=== PATIENT | female | born 1965 | race Asian ===

== ENCOUNTER 2018-09-15 16:08 | Inpatient (IN) | payer SELFPAY ==
[~2018-09-15] VITALS: Ht 165.1 cm; Wt 62.6 kg
--- NOTE | 2018-09-15 17:01 | PHYS DOC ---
Adult General Chief Complaint Chief Complaint: RECTAL BLEED [facility] HPI Patient is a 53 year old female presents for evaluation of increasing rectal pain with bleeding, difficulty with bowel movements. 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 He states his recently started having blood in her stools, he took her to the [facility] where she was referred to [facility] and had a colonoscopy done on . 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 He is unsure what to do to help get her the care that she needs. She is having increased pain and finding it very difficult to pass stool. Review of Systems Review of Systems Constitutional: Denies fever or chills [] Eyes: Denies change in visual acuity, redness, or eye pain [] HENT: Denies nasal congestion or sore throat [] Respiratory: Denies cough or shortness of breath [] Cardiovascular: No additional information not addressed in HPI [] GI: Reports rectal pain and, bloody stools[] : Denies dysuria or hematuria [] Musculoskeletal: Denies back pain or joint pain [] Integument: Denies rash or skin lesions [] Neurologic: Denies headache, focal weakness or sensory changes [] Endocrine: Denies polyuria or polydipsia [] All other systems were reviewed and found to be within normal limits, except as documented in this note. Current Medications Current Medications Current Medications Medications (Trade) Dose Ordered Sig/[facility] Start Time Stop Time Status Last Admin Dose Admin Morphine Sulfate (Morphine Sulfate) 4 mg 1X ONCE 09/15/18 17:15 09/15/18 17:16 DC Ondansetron HCl (Zofran) 4 mg 1X ONCE 09/15/18 17:15 09/15/18 17:16 DC Sodium Chloride 1,000 ml @ 1,000 mls/hr 1X ONCE 09/15/18 17:15 09/15/18 18:14 Allergies Allergies Allergies Coded Allergies Type Severity Reaction Last Updated Verified No Known Drug Allergies 09/15/18 No Physical Exam Physical Exam Constitutional: Well developed, well nourished, no acute distress, non-toxic appearance. [] Cardiovascular:Heart rate regular rhythm, no murmur [] Lungs & Thorax: Bilateral breath sounds clear to auscultation [] Abdomen: Bowel sounds normal, soft, no tenderness, no masses, no pulsatile masses. [] Skin: Warm, dry, no erythema, no rash. [] Extremities: No tenderness, no cyanosis, no clubbing, ROM intact, no edema. [] Neurologic: Alert and oriented X 3, normal motor function, normal sensory function, no focal deficits noted. [] Psychologic: Affect normal, judgement normal, mood normal. [] Current Patient Data Vital Signs Vital Signs Date Time Temp Pulse Resp B/P (MAP) Pulse Ox O2 Delivery O2 Flow Rate FiO2 09/15/18 16:29 98.2 80 16 120/75 (90) 98 Room Air 98.2 Lab Values Laboratory Tests Test 09/15/18 17:00 White Blood Count 6.1 x10^3/uL (4.0-11.0) Red Blood Count 4.55 x10^6/uL (3.50-5.40) Hemoglobin 12.9 g/dL (12.0-15.5) Hematocrit 39.0 % (36.0-47.0) Mean Corpuscular Volume 86 fL (79-100) Mean Corpuscular Hemoglobin 28 pg (25-35) Mean Corpuscular Hemoglobin Concent 33 g/dL (31-37) Red Cell Distribution Width 13.5 % (11.5-14.5) Platelet Count 226 x10^3/uL (140-400) Neutrophils (%) (Auto) 60 % (31-73) Lymphocytes (%) (Auto) 29 % (24-48) Monocytes (%) (Auto) 8 % (0-9) Eosinophils (%) (Auto) 3 % (0-3) Basophils (%) (Auto) 1 % (0-3) Neutrophils # (Auto) 3.6 x10^3uL (1.8-7.7) Lymphocytes # (Auto) 1.8 x10^3/uL (1.0-4.8) Monocytes # (Auto) 0.5 x10^3/uL (0.0-1.1) Eosinophils # (Auto) 0.2 x10^3/uL (0.0-0.7) Basophils # (Auto) 0.0 x10^3/uL (0.0-0.2) Laboratory Tests 09/15/18 17:00 EKG EKG [] Radiology/Procedures Radiology/Procedures [] Course & Med Decision Making Course & Med Decision Making Pertinent Labs and Imaging studies reviewed. (See chart for details) []I spoke with Dr. Diez , oncology, who agrees to consult on patient's case, recommends getting radiation oncology and surgery on board, admit to medicine. I spoke to Dr. Mart who agrees to admit patient. Dragon Disclaimer Dragon Disclaimer This electronic medical record was generated, in whole or in part, using a voice recognition dictation system. Departure Departure Impression: Primary Impression: Rectal carcinoma Disposition: ADMITTED INPATIENT Admitting Physician: Lourdes Mart Condition: STABLE SOLITARIO AMBROCIO SENIOR ANALYST Sep 15, 2018 17:01
[2018-09-15] MEDS ORDERED: ONDANSETRON PF 4 MG/2 ML VIAL. IV ONE (17:15)
[2018-09-15] MEDS ORDERED: MORPHINE SULFATE 4 MG/ML VIAL. IV ONE (17:15)
[2018-09-15] MEDS ORDERED: IV NORMAL SALINE 1000ML BAG 1,000 ML IV ONE (17:15)
[2018-09-15 17:22] LABS: BASO % 1 % (0-3); EOS # 0.2 x10^3/uL (0.0-0.7); EOS % 3 % (0-3); HEMOGLOBIN 12.9 g/dL (12.0-15.5); LYMPH # 1.8 x10^3/uL (1.0-4.8); LYMPH % 29 % (24-48); MEAN CORPUSCULAR HEMOGLOBIN 28 pg (25-35); MEAN CORPUSCULAR HGB CONC 33 g/dL (31-37); MEAN CORPUSCULAR VOLUME 86 fL (79-100); MONO # 0.5 x10^3/uL (0.0-1.1); MONO % 8 % (0-9); NEUT # 3.6 x10^3uL (1.8-7.7); NEUT % 60 % (31-73); PLATELET COUNT 226 x10^3/uL (140-400); RED BLOOD COUNT 4.55 x10^6/uL (3.50-5.40); RED CELL DISTRIBUTION WIDTH 13.5 % (11.5-14.5); WHITE BLOOD COUNT 6.1 x10^3/uL (4.0-11.0)
[2018-09-15 17:30] LABS: CALCIUM 8.8 mg/dL (8.5-10.1); CREATININE 0.6 mg/dL (0.6-1.0); GFR 104.2; POTASSIUM 3.5 mmol/L (3.5-5.1)
[2018-09-15] MEDS ORDERED: ZOLPIDEM 5 MG TABLET. PO PRN (17:30)
[2018-09-15] MEDS ORDERED: oxyCODONE IR 5 MG TABLET PO PRN (17:30)
[2018-09-15] MEDS ORDERED: ACETAMINOPHEN 325 MG TABLET. PO PRN (17:30)
[2018-09-15] MEDS ORDERED: MAGNESIUM HYDROXIDE 2,400 MG/30 ML ORAL.SUSP. PO PRN (17:30)
[2018-09-15] MEDS ORDERED: MAG HYDROX/ALUMINUM HYD/SIMETH 30 ML ORAL.SUSP PO PRN (17:30)
[2018-09-15] MEDS ORDERED: PROCHLORPERAZINE 10 MG/2 ML VIAL. IV PRN (17:30)
[2018-09-15] MEDS ORDERED: MORPHINE SULFATE 4 MG/ML VIAL. IV PRN ×2 (17:30→18:04)
[2018-09-15] MEDS ORDERED: CALCIUM CARBONATE 500 MG TAB.CHEW PO PRN (17:30)
[2018-09-15] MEDS ORDERED: MORPHINE SULFATE 2 MG/ML VIAL. IV PRN (17:30)
[2018-09-15] MEDS ORDERED: ONDANSETRON PF 4 MG/2 ML VIAL. IV PRN ×2 (17:30)
[2018-09-15] MEDS ORDERED: PROCHLORPERAZINE 25 MG SUPP.RECT. PR PRN (17:30)
[2018-09-15 17:35] LABS: ALBUMIN 3.4 g/dL (3.4-5.0); ALBUMIN/GLOBULIN RATIO 0.8 (1.0-1.7); TOTAL BILIRUBIN 0.2 mg/dL (0.2-1.0); TOTAL PROTEIN 7.5 g/dL (6.4-8.2)
--- NOTE | 2018-09-15 17:39 | PDOC1 ---
History and Physical Date of Admission Date of Admission DATE: 09/15/18 TIME: 17:32 Identification/Chief Complaint Chief Complaint Invasive adenoCA rectum on colonoscopy biopsy results (As op) hence advised to come to the hospital Source Source: Caregiver, Chart review, Patient History of Present Illness History of Present Illness 53-year-old Surinamese speaking female, only speaks Mandarin, accompanied by loving who speaks fluent [place] Islander. Had a colonoscopy done as outpatient because of rectal Bleeding and rectal pain, c scope done by Dr. Carter as OP. Biopsy came in the mail today and showed adeno CA rectal invasive hence advised to come to the ER with heme onc on board to expedite care and plan of tx. Hematology consult called, advised general surgery and radiation oncology to be on board. MIght be getting CT scan too. Staging? Patient still has rectal pain and rectal bleeding once in a while. No labs yet- she's hemodynamically stable. helps to translate via carmencita phone translation, all our discussion Seen at the emergency room Full code She does not take any real medications at home aside from multivitamins SHe denies any family history of colon cancer or rectal cancer Past Medical History Cardiovascular: No pertinent hx Pulmonary: No pertinent hx GI: No pertinent hx Heme/Onc: No pertinent hx Hepatobiliary: No pertinent hx Psych: No pertinent hx Rheumatologic: No pertinent hx Infectious disease: No pertinent hx ENT: No pertinent hx Renal/: No pertinent hx Endocrine: No pertinent hx Dermatology: No pertinent hx Past Surgical History Past Surgical History: No pertinent history Family History Family History: No Significant Social History Smoke: No ALCOHOL: none Drugs: None Current Medications Current Medications Current Medications Sodium Chloride 1,000 ml @ 1,000 mls/hr 1X ONCE IV ; Start 09/15/18 at 17:15; Stop 09/15/18 at 18:14 Ondansetron HCl (Zofran) 4 mg 1X ONCE IV ; Start 09/15/18 at 17:15; Stop at 17:16; Status DC Morphine Sulfate (Morphine Sulfate) 4 mg 1X ONCE IV ; Start 09/15/18 at 17:15; Stop 09/15/18 at 17:16; Status DC Allergies Allergies: Coded Allergies: No Known Drug Allergies (Unverified , 09/15/18) ROS Review of System A 14 point ROS was completed with the following noted as positive: Other systems reviewed and negative. \CONSTITUTIONAL: No fever or chills EYES: No recent changes SKIN: No rash or itching CARDIOVASCULAR: No chest pain, syncope, palpitations, or edema RESPIRATORY: No SOB or cough GASTROINTESTINAL: No nausea, vomiting NEUROLOGICAL: No headaches or weakness ENDOCRINE: No cold or heat intolerance GENITOURINARY: No urgency or frequency of urination MUSCULOSKELETAL: No back pain or joint pain LYMPHATICS: No enlarged lymph nodes PSYCHIATRIC: No anxiety or depression Physical Exam General: Alert, Oriented X3, Cooperative, No acute distress HEENT: Atraumatic, PERRLA, EOMI Lungs: Clear to auscultation, Normal air movement Heart: S1S2, RRR, no thrills, no rubs, no gallops, no murmurs Cardiovascular: S1, S2 Breasts: Normal, Rt breast nml w/o mass, Lt breast nml w/o mass, Nipples normal Rectal Exam: not examined PELVIC: Nml ext genitalia Extremities: No clubbing, No cyanosis, No edema, Normal pulses, No tenderness/ swelling Skin: No rashes, No breakdown, No significant lesion Neuro: Normal gait, Normal speech, Strength at 5/5 X4 ext, Normal tone, Sensation intact, Cranial nerves 3-12 NL, Reflexes 2+ Psych/Mental Status: Mental status NL, Mood NL Vitals Vitals Vital Signs Date Time Temp Pulse Resp B/P (MAP) Pulse Ox O2 Delivery O2 Flow Rate FiO2 09/15/18 16:29 98.2 80 16 120/75 (90) 98 Room Air 98.2 Labs Labs Laboratory Tests Test 09/15/18 17:00 White Blood Count 6.1 x10^3/uL (4.0-11.0) Red Blood Count 4.55 x10^6/uL (3.50-5.40) Hemoglobin 12.9 g/dL (12.0-15.5) Hematocrit 39.0 % (36.0-47.0) Mean Corpuscular Volume 86 fL (79-100) Mean Corpuscular Hemoglobin 28 pg (25-35) Mean Corpuscular Hemoglobin Concent 33 g/dL (31-37) Red Cell Distribution Width 13.5 % (11.5-14.5) Platelet Count 226 x10^3/uL (140-400) Neutrophils (%) (Auto) 60 % (31-73) Lymphocytes (%) (Auto) 29 % (24-48) Monocytes (%) (Auto) 8 % (0-9) Eosinophils (%) (Auto) 3 % (0-3) Basophils (%) (Auto) 1 % (0-3) Neutrophils # (Auto) 3.6 x10^3uL (1.8-7.7) Lymphocytes # (Auto) 1.8 x10^3/uL (1.0-4.8) Monocytes # (Auto) 0.5 x10^3/uL (0.0-1.1) Eosinophils # (Auto) 0.2 x10^3/uL (0.0-0.7) Basophils # (Auto) 0.0 x10^3/uL (0.0-0.2) Sodium Level 138 mmol/L (136-145) Potassium Level 3.5 mmol/L (3.5-5.1) Chloride Level 104 mmol/L (98-107) Carbon Dioxide Level 30 mmol/L (21-32) Anion Gap 4 (6-14) Blood Urea Nitrogen 11 mg/dL (7-20) Creatinine 0.6 mg/dL (0.6-1.0) Estimated GFR (Cockcroft-Gault) 104.2 BUN/Creatinine Ratio 18 (6-20) Glucose Level 132 mg/dL (70-99) Calcium Level 8.8 mg/dL (8.5-10.1) Laboratory Tests Test 09/15/18 17:00 White Blood Count 6.1 x10^3/uL (4.0-11.0) Red Blood Count 4.55 x10^6/uL (3.50-5.40) Hemoglobin 12.9 g/dL (12.0-15.5) Hematocrit 39.0 % (36.0-47.0) Mean Corpuscular Volume 86 fL (79-100) Mean Corpuscular Hemoglobin 28 pg (25-35) Mean Corpuscular Hemoglobin Concent 33 g/dL (31-37) Red Cell Distribution Width 13.5 % (11.5-14.5) Platelet Count 226 x10^3/uL (140-400) Neutrophils (%) (Auto) 60 % (31-73) Lymphocytes (%) (Auto) 29 % (24-48) Monocytes (%) (Auto) 8 % (0-9) Eosinophils (%) (Auto) 3 % (0-3) Basophils (%) (Auto) 1 % (0-3) Neutrophils # (Auto) 3.6 x10^3uL (1.8-7.7) Lymphocytes # (Auto) 1.8 x10^3/uL (1.0-4.8) Monocytes # (Auto) 0.5 x10^3/uL (0.0-1.1) Eosinophils # (Auto) 0.2 x10^3/uL (0.0-0.7) Basophils # (Auto) 0.0 x10^3/uL (0.0-0.2) Sodium Level 138 mmol/L (136-145) Potassium Level 3.5 mmol/L (3.5-5.1) Chloride Level 104 mmol/L (98-107) Carbon Dioxide Level 30 mmol/L (21-32) Anion Gap 4 (6-14) Blood Urea Nitrogen 11 mg/dL (7-20) Creatinine 0.6 mg/dL (0.6-1.0) Estimated GFR (Cockcroft-Gault) 104.2 BUN/Creatinine Ratio 18 (6-20) Glucose Level 132 mg/dL (70-99) Calcium Level 8.8 mg/dL (8.5-10.1) VTE Prophylaxis Ordered VTE Prophylaxis Devices: Contraindicated VTE Pharmacological Prophylaxi: Contraindicated Assessment/Plan Assessment/Plan Invasive AdenoCA rectal, by C scope biospy findings Rectal bleed/rectal pain Plan: Admit 2 mN Heme onc, radiation onc, general surgery consults Okay for diet for now but nothing by mouth post midnight just in case any procedures and Monday but highly doubt this CT scan chest abdomen pelvis for staging if that is okay with heme oncology Seen at ER, helps translate bAsic labs MELISSA MONTENEGRO MD Sep 15, 2018 17:39
[2018-09-15] MEDS ORDERED: IOHEXOL 300 MG/ML 100ML VIAL. IV ONE (18:00)
[2018-09-15] MEDS ORDERED: CONTRAST GIVEN. MC PRN (18:15)
[2018-09-15 18:50] VITALS: BP 129/78
--- NOTE | 2018-09-15 19:41 | NUR ---
Dr. Medina notified of new consult. No orders receive, he will see pt tomorrow. HS nurse Chelle, RN notified of same.
--- NOTE | 2018-09-15 19:54 | RAD ---
CT study of the chest and abdomen and pelvis with contrast Clinical indications: Rectal cancer. TECHNIQUE: After IV infusion of 75 cc of Omnipaque 300, helical CT scanning of the chest and abdomen and pelvis was performed. No GI contrast was administered. This may decrease the sensitivity to detect GI tract pathology. PQRS compliance Statement One or more of the following individualized dose reduction techniques were utilized for this study: 1. Automated exposure control 2. Adjustment of the mA and/or kV according to patient size 3. Use of iterative reconstruction technique COMPARISON: None available. CHEST CT: No focal aneurysmal dilatation of the thoracic aorta is seen. No intimal flap or dissection is seen. Heart size is normal and no pericardial effusion is seen. No enlarged thoracic lymphadenopathy is evident. No pleural effusion or pneumothorax is seen. No lung infiltrate or lung mass is evident. No lung nodule is seen. The proximal bronchial tree is patent. No lytic process is seen. IMPRESSION: No acute abnormality of the chest. No lung metastatic disease is evident. ABDOMEN AND PELVIS CT: The liver and spleen and pancreas and gallbladder are normal. No extra hepatic biliary ductal dilatation is seen. No adrenal mass is evident. Small nonobstructing punctate stone of the lower pole right kidney is seen. No renal mass or hydronephrosis is seen. Urinary bladder wall is smooth. No uterine mass is seen. No dominant ovarian cyst or mass is evident. No focal aneurysmal dilatation of the abdominal aorta is seen. No enlarged abdominal lymphadenopathy is evident. There is wall thickening of the rectum. Mild perirectal inflammatory change is present. . There are small perirectal lymph nodes present bilaterally more so on the left side and the largest lymph node is 8 mm. There is a left internal iliac lymph node measuring 25 mm. There is wall thickening of the proximal and mid sigmoid colon. There is diffuse segmental wall thickening of the descending colon including the splenic flexure. The terminal ileum is unremarkable. The appendix is normal. No obstructive bowel pattern is evident. No free air or free fluid is seen. No lytic process is seen. IMPRESSION: Circumferential wall thickening of the rectum. Perirectal lymph nodes. Left internal iliac lymph node. There is wall thickening of the descending colon and sigmoid colon. Additional areas of malignancy or colitis are possible. Therefore, evaluation with colonoscopy is recommended. Electronically signed by: Richar Lei MD (09/15/2018 7:50 PM) [facility]
[2018-09-15] MEDS: SENNOSIDES/DOCUSATE 8.6/50MG TABLET. PO SCH (22:15)
[2018-09-15 23:00] VITALS: BP 103/54
[2018-09-16 03:00] VITALS: BP 101/62
[2018-09-16 05:31] LABS: BASO % 1 % (0-3); EOS # 0.2 x10^3/uL (0.0-0.7); EOS % 5 % (0-3); HEMATOCRIT 37.5 % (36.0-47.0); HEMOGLOBIN 12.3 g/dL (12.0-15.5); LYMPH # 1.8 x10^3/uL (1.0-4.8); LYMPH % 36 % (24-48); MEAN CORPUSCULAR HEMOGLOBIN 29 pg (25-35); MEAN CORPUSCULAR HGB CONC 33 g/dL (31-37); MEAN CORPUSCULAR VOLUME 87 fL (79-100); MONO # 0.4 x10^3/uL (0.0-1.1); MONO % 8 % (0-9); NEUT # 2.6 x10^3uL (1.8-7.7); NEUT % 52 % (31-73); PLATELET COUNT 209 x10^3/uL (140-400); RED BLOOD COUNT 4.32 x10^6/uL (3.50-5.40); RED CELL DISTRIBUTION WIDTH 13.3 % (11.5-14.5); WHITE BLOOD COUNT 5.1 x10^3/uL (4.0-11.0)
[2018-09-16 07:00] VITALS: BP 99/54
[2018-09-16 07:43] LABS: ALBUMIN/GLOBULIN RATIO 0.8 (1.0-1.7); CALCIUM 8.9 mg/dL (8.5-10.1); CREATININE 0.7 mg/dL (0.6-1.0); GFR 87.2; POTASSIUM 3.8 mmol/L (3.5-5.1); TOTAL BILIRUBIN 0.3 mg/dL (0.2-1.0); TOTAL PROTEIN 6.9 g/dL (6.4-8.2)
[2018-09-16] MEDS: SENNOSIDES/DOCUSATE 8.6/50MG TABLET. PO SCH ×2 (09:00→22:36)
[2018-09-16 11:14] VITALS: BP 101/61
[2018-09-16 15:00] VITALS: BP 132/81
[2018-09-16 19:20] VITALS: BP 99/65
--- NOTE | 2018-09-16 22:00 | CONS ---
DATE OF CONSULTATION: 09/16/2018 REQUESTING PHYSICIAN: Dr. Lourdes Mart. REASON FOR CONSULTATION: Rectal cancer. HISTORY OF PRESENT ILLNESS: The patient is a 53-year-old Spanish speaking female who noticed blood in the stools in 02/2018. She initially went to a health clinic and then she went to [facility] in 06/2018. She was evaluated in the Emergency Room and she was recommended to have a colonoscopy as outpatient. She was postponing all the workup because of lack of insurance. She then underwent a colonoscopy by Dr. Dwayne Carter on 08/30/2018 at [facility]. Distal rectal mass was noted, which appeared malignant and partially obstructing and the biopsies revealed moderately differentiated invasive adenocarcinoma. She mentions that she had to be out of pocket for the colonoscopy as she did not have any insurance. She had worsening pain in the pelvic region and continued rectal bleed and then she received a report from the pathology that she has a malignancy and hence she decided to go to the Emergency Room at [facility] on 09/15/2018 and she was subsequently admitted. She denies loss of weight or loss of appetite. No fevers, chills or night sweats. No hematemesis or hemoptysis. Her has been helping her and he was also present at the bedside. She underwent a CT scan of the chest, abdomen and pelvis on 09/15/2018 that revealed circumferential wall thickening of the rectum with evidence of perirectal lymph nodes and left internal iliac lymph node measuring 25 mm. There is wall thickening in the descending and sigmoid colon; however, she has already had a colonoscopy, which revealed polyps in the descending and sigmoid colon, which was resected. There was another polyp in the proximal ascending colon, which was also resected. PAST MEDICAL HISTORY: Rectal bleeding in 02/2018. SOCIAL HISTORY: No smoking or alcohol abuse. FAMILY HISTORY: No history of cancer in the family. REVIEW OF SYSTEMS: A 12-point review of system was performed. Pertinent positives are mentioned in the history of present illness. Rest of the system review is negative. PHYSICAL EXAMINATION: GENERAL APPEARANCE: The patient is a 53-year-old female who is in no acute cardiorespiratory distress. VITAL SIGNS: Blood pressure 101/61, temperature 97.3. HEAD: Atraumatic, normocephalic. EYES: No icterus. NECK: Supple. CHEST: Bilaterally symmetrical. No crepitations or rhonchi heard. HEART: S1, S2 normal. ABDOMEN: Soft, nontender. CENTRAL NERVOUS SYSTEM: No focal deficits. LYMPHATICS: No lymphadenopathy. SKIN: No rashes. PSYCHOLOGIC: Mood and affect are appropriate. LABORATORY DATA: WBC 5.1, hemoglobin 12.3, platelet count 209. IMPRESSION AND PLAN: 1. Rectal cancer diagnosed on 08/30/2018. I have recommended neoadjuvant chemotherapy and radiation therapy followed by surgery, followed by adjuvant chemotherapy. The patient and her mentioned that they do not have insurance and they will not be able to afford all these treatments. I will consult social media marketing manager for assistance if possible. I will also discuss with Dr. Boo Wilson and Dr. Keenan Medina. I already discussed with Dr. Medina. If neoadjuvant chemotherapy and radiation is not possible, then she may need to have definite surgery as soon as possible. I will also obtain MRI of the pelvis for staging workup. 2. Rectal bleeding due to malignancy. Hemoglobin normal at 12.3. Continue to monitor. OZ MCDANIEL MD DR: YAQUELIN/aj JOB#: [id number] / [id number]
[2018-09-16 23:00] VITALS: BP 118/56
[2018-09-17 03:00] VITALS: BP 102/64
[2018-09-17 06:07] LABS: BILIRUBIN,URINE NEGATIVE (NEG); CLARITY,URINE CLEAR; COLOR,URINE YELLOW; NITRITE,URINE NEGATIVE (NEG); PH,URINE 6.5; PROTEIN,URINE NEGATIVE (NEG-TRACE); UROBILINOGEN,URINE 0.2 mg/dL (0.2 mg/dL)
[2018-09-17 06:18] LABS: BACTERIA,URINE FEW /HPF (0-FEW); RBC,URINE 0 /HPF (0-2); SQUAMOUS EPITHELIAL CELL,UR OCC /LPF
[2018-09-17 07:00] VITALS: BP 97/64
--- NOTE | 2018-09-17 08:55 | PDOC ---
PROGRESS NOTES Subjective Subjective HPI -f/u of Rectal cancer diagnosed on 08/30/2018. ROS - no abd pain Objective Objective Vital Signs Date Time Temp Pulse Resp B/P (MAP) Pulse Ox O2 Delivery O2 Flow Rate FiO2 09/17/18 07:00 98.2 60 20 97/64 (75) 97 Room Air 98.2 Intake and Output 09/17/18 07:01 Intake Total 540 ml Balance 540 ml Intake Oral 540 ml # Voids 2 Physical Exam Heart: Normal S1, Normal S2 General: Alert, Oriented X3, No acute distress Lungs: Clear to auscultation Psych/Mental Status: Mental status NL Assessment Assessment IMPRESSION AND PLAN: 1. Rectal cancer diagnosed on 08/30/2018. I have recommended neoadjuvant chemotherapy and radiation therapy followed by surgery, followed by adjuvant chemotherapy. The patient and her mentioned that they do not have insurance and they will not be able to afford all these treatments. The pt's discussed with patient financial counselor on 09/03/18 and discussed payment options and expressed that he will not be able to afford it and hence will not schedule any appointments at . I will consult health social work professor for assistance if possible. I will also discuss with Dr. Boo Wilson. I already discussed with Dr. Medina. If neoadjuvant chemotherapy and radiation is not possible, then she may need to have definite surgery as soon as possible. I will also obtain MRI of the pelvis for staging workup. 2. Rectal bleeding due to malignancy. Hemoglobin normal at 12.3. Continue to monitor. Comment Review of Relevant I have reviewed the following items dinora (where applicable) has been applied. Labs Laboratory Tests Test 09/15/18 17:00 09/16/18 05:00 09/17/18 04:30 White Blood Count 6.1 x10^3/uL (4.0-11.0) 5.1 x10^3/uL (4.0-11.0) Red Blood Count 4.55 x10^6/uL (3.50-5.40) 4.32 x10^6/uL (3.50-5.40) Hemoglobin 12.9 g/dL (12.0-15.5) 12.3 g/dL (12.0-15.5) Hematocrit 39.0 % (36.0-47.0) 37.5 % (36.0-47.0) Mean Corpuscular Volume 86 fL (79-100) 87 fL (79-100) Mean Corpuscular Hemoglobin 28 pg (25-35) 29 pg (25-35) Mean Corpuscular Hemoglobin Concent 33 g/dL (31-37) 33 g/dL (31-37) Red Cell Distribution Width 13.5 % (11.5-14.5) 13.3 % (11.5-14.5) Platelet Count 226 x10^3/uL (140-400) 209 x10^3/uL (140-400) Neutrophils (%) (Auto) 60 % (31-73) 52 % (31-73) Lymphocytes (%) (Auto) 29 % (24-48) 36 % (24-48) Monocytes (%) (Auto) 8 % (0-9) 8 % (0-9) Eosinophils (%) (Auto) 3 % (0-3) 5 % (0-3) Basophils (%) (Auto) 1 % (0-3) 1 % (0-3) Neutrophils # (Auto) 3.6 x10^3uL (1.8-7.7) 2.6 x10^3uL (1.8-7.7) Lymphocytes # (Auto) 1.8 x10^3/uL (1.0-4.8) 1.8 x10^3/uL (1.0-4.8) Monocytes # (Auto) 0.5 x10^3/uL (0.0-1.1) 0.4 x10^3/uL (0.0-1.1) Eosinophils # (Auto) 0.2 x10^3/uL (0.0-0.7) 0.2 x10^3/uL (0.0-0.7) Basophils # (Auto) 0.0 x10^3/uL (0.0-0.2) 0.0 x10^3/uL (0.0-0.2) Sodium Level 138 mmol/L (136-145) 142 mmol/L (136-145) Potassium Level 3.5 mmol/L (3.5-5.1) 3.8 mmol/L (3.5-5.1) Chloride Level 104 mmol/L (98-107) 108 mmol/L (98-107) Carbon Dioxide Level 30 mmol/L (21-32) 28 mmol/L (21-32) Anion Gap 4 (6-14) 6 (6-14) Blood Urea Nitrogen 11 mg/dL (7-20) 8 mg/dL (7-20) Creatinine 0.6 mg/dL (0.6-1.0) 0.7 mg/dL (0.6-1.0) Estimated GFR (Cockcroft-Gault) 104.2 87.2 BUN/Creatinine Ratio 18 (6-20) 11 (6-20) Glucose Level 132 mg/dL (70-99) 95 mg/dL (70-99) Calcium Level 8.8 mg/dL (8.5-10.1) 8.9 mg/dL (8.5-10.1) Total Bilirubin 0.2 mg/dL (0.2-1.0) 0.3 mg/dL (0.2-1.0) Aspartate Amino Transf (AST/SGOT) 21 U/L (15-37) 25 U/L (15-37) Alanine Aminotransferase (ALT/SGPT) 25 U/L (14-59) 30 U/L (14-59) Alkaline Phosphatase 82 U/L (46-116) 79 U/L (46-116) Total Protein 7.5 g/dL (6.4-8.2) 6.9 g/dL (6.4-8.2) Albumin 3.4 g/dL (3.4-5.0) 3.0 g/dL (3.4-5.0) Albumin/Globulin Ratio 0.8 (1.0-1.7) 0.8 (1.0-1.7) Prothrombin Time 13.0 SEC (11.7-14.0) Prothromb Time International Ratio 1.0 (0.8-1.1) Urine Collection Type Unknown Urine Color Yellow Urine Clarity Clear Urine pH 6.5 Urine Specific [place] 1.010 Urine Protein Negative mg/dL (NEG-TRACE) Urine Glucose (UA) Negative mg/dL (NEG) Urine Ketones (Stick) Negative mg/dL (NEG) Urine Blood Negative (NEG) Urine Nitrite Negative (NEG) Urine Bilirubin Negative (NEG) Urine Urobilinogen Dipstick 0.2 mg/dL (0.2 mg/dL) Urine Leukocyte Esterase Small (NEG) Urine RBC 0 /HPF (0-2) Urine WBC 5-10 /HPF (0-4) Urine Squamous Epithelial Cells Occ /LPF Urine Bacteria Few /HPF (0-FEW) Urine Mucus Slight /LPF Laboratory Tests Test 09/17/18 04:30 Urine Collection Type Unknown Urine Color Yellow Urine Clarity Clear Urine pH 6.5 Urine Specific [place] 1.010 Urine Protein Negative mg/dL (NEG-TRACE) Urine Glucose (UA) Negative mg/dL (NEG) Urine Ketones (Stick) Negative mg/dL (NEG) Urine Blood Negative (NEG) Urine Nitrite Negative (NEG) Urine Bilirubin Negative (NEG) Urine Urobilinogen Dipstick 0.2 mg/dL (0.2 mg/dL) Urine Leukocyte Esterase Small (NEG) Urine RBC 0 /HPF (0-2) Urine WBC 5-10 /HPF (0-4) Urine Squamous Epithelial Cells Occ /LPF Urine Bacteria Few /HPF (0-FEW) Urine Mucus Slight /LPF Medications Current Medications Sodium Chloride 1,000 ml @ 1,000 mls/hr 1X ONCE IV Last administered on at 17:46; Start 09/15/18 at 17:15; Stop 09/15/18 at 18:14; Status DC Ondansetron HCl (Zofran) 4 mg 1X ONCE IV Last administered on 09/15/18at 17:48 ; Start 09/15/18 at 17:15; Stop 09/15/18 at 17:16; Status DC Morphine Sulfate (Morphine Sulfate) 4 mg 1X ONCE IV Last administered on at 17:49; Start 09/15/18 at 17:15; Stop 09/15/18 at 17:16; Status DC Ondansetron HCl (Zofran) 4 mg PRN Q8HRS PRN IV NAUSEA/VOMITING; Start 09/15/18 at 17:30; Stop 09/15/18 at 17:57; Status DC Morphine Sulfate (Morphine Sulfate) 4 mg PRN Q2HR PRN IV PAIN; Start 09/15/18 at 17:30; Stop 09/15/18 at 18:03; Status DC Ondansetron HCl (Zofran) 4 mg PRN Q6HRS PRN IV NAUSEA/VOMITING 1ST CHOICE; Start 09/15/18 at 17:30 Prochlorperazine Edisylate (Compazine) 10 mg PRN Q6HRS PRN IV NAUSEA/VOMITING 2ND CHOICE; Start 09/15/18 at 17:30 Prochlorperazine (Compazine) 25 mg PRN Q12HR PRN [place] NAUSEA/VOMITING; Start at 17:30 Al Hydroxide/Mg Hydroxide (Mylanta Plus Xs) 30 ml PRN Q3HRS PRN PO HEARTBURN / GAS; Start 09/15/18 at 17:30 Calcium Carbonate/ Glycine (Tums) 500 mg PRN Q3HRS PRN PO UPSET STOMACH; Start 09/15/18 at 17:30 Zolpidem Tartrate (Ambien) 5 mg PRN QHS PRN PO INSOMNIA, MAY REPEAT IN 1HR; Start 09/15/18 at 17:30 Oxycodone HCl (Roxicodone) 5 mg PRN Q3HRS PRN PO PAIN; Start 09/15/18 at 17:30 Morphine Sulfate (Morphine Sulfate) 1 mg PRN Q1HR PRN IV PAIN SEVERE; Start at 17:30; Stop 09/15/18 at 18:04; Status DC Acetaminophen (Tylenol) 650 mg PRN Q6HRS PRN PO Headaches, Temp > 101.5F; Start 09/15/18 at 17:30 Senna/Docusate Sodium (Senna Plus) 1 tab BID PO Last administered on 09/16/18at 22:36; Start 09/15/18 at 21:00 Magnesium Hydroxide (Milk Of Magnesia) 2,400 mg PRN Q12HR PRN PO CONSTIPATION; Start 09/15/18 at 17:30 Iohexol (Omnipaque 300 Mg/ml) 75 ml 1X ONCE IV Last administered on 09/15/18at 18:28; Start 09/15/18 at 18:00; Stop 09/15/18 at 18:02; Status DC Info (CONTRAST GIVEN -- Rx MONITORING) 1 each PRN DAILY PRN MC SEE COMMENTS; Start 09/15/18 at 18:15; Stop 09/17/18 at 18:14 Morphine Sulfate (Morphine Sulfate) 1 mg PRN Q1HR PRN IV PAIN SEVERE; Start at 18:04 Vitals/I & O Vital Sign - Last 24 Hours 09/16/18 09/16/18 09/16/18 09/16/18 11:14 15:00 19:20 20:00 Temp 97.3 97.2 99.0 97.3 97.2 99.0 Pulse 65 72 68 Resp 20 20 20 B/P (MAP) 101/61 (74) 132/81 (98) 99/65 (76) Pulse Ox 99 98 96 O2 Delivery Room Air Room Air Room Air Room Air 09/16/18 09/17/18 09/17/18 23:00 03:00 07:00 Temp 98.0 98.2 98.2 98.0 98.2 98.2 Pulse 62 68 60 Resp 18 18 20 B/P (MAP) 118/56 (76) 102/64 (77) 97/64 (75) Pulse Ox 97 98 97 O2 Delivery Room Air Room Air Room Air Intake and Output 09/16/18 09/16/18 09/17/18 15:01 23:01 07:01 Intake Total 340 ml 0 ml 200 ml Balance 340 ml 0 ml 200 ml OZ MCDANIEL MD Sep 17, 2018 08:55
[2018-09-17] MEDS ORDERED: GADOBUTROL 7.5 MMOL/7.5 ML VIAL IV ONE (09:30)
--- NOTE | 2018-09-17 10:03 | PDOC ---
CHELSIE BOURNE [employer]IST[employer] TE[employer] 09/17/18 1003: SURGICAL PROGRESS NOTE Subjective down for MRI Dr Lazo to see Vital Signs Vital Signs Date Time Temp Pulse Resp B/P (MAP) Pulse Ox O2 Delivery O2 Flow Rate FiO2 09/17/18 07:00 98.2 60 20 97/64 (75) 97 Room Air 98.2 I&O Intake and Output 09/17/18 07:01 Intake Total 540 ml Balance 540 ml Intake Oral 540 ml # Voids 2 Labs Laboratory Tests Test 09/15/18 17:00 09/16/18 05:00 09/17/18 04:30 White Blood Count 6.1 x10^3/uL (4.0-11.0) 5.1 x10^3/uL (4.0-11.0) Red Blood Count 4.55 x10^6/uL (3.50-5.40) 4.32 x10^6/uL (3.50-5.40) Hemoglobin 12.9 g/dL (12.0-15.5) 12.3 g/dL (12.0-15.5) Hematocrit 39.0 % (36.0-47.0) 37.5 % (36.0-47.0) Mean Corpuscular Volume 86 fL (79-100) 87 fL (79-100) Mean Corpuscular Hemoglobin 28 pg (25-35) 29 pg (25-35) Mean Corpuscular Hemoglobin Concent 33 g/dL (31-37) 33 g/dL (31-37) Red Cell Distribution Width 13.5 % (11.5-14.5) 13.3 % (11.5-14.5) Platelet Count 226 x10^3/uL (140-400) 209 x10^3/uL (140-400) Neutrophils (%) (Auto) 60 % (31-73) 52 % (31-73) Lymphocytes (%) (Auto) 29 % (24-48) 36 % (24-48) Monocytes (%) (Auto) 8 % (0-9) 8 % (0-9) Eosinophils (%) (Auto) 3 % (0-3) 5 % (0-3) Basophils (%) (Auto) 1 % (0-3) 1 % (0-3) Neutrophils # (Auto) 3.6 x10^3uL (1.8-7.7) 2.6 x10^3uL (1.8-7.7) Lymphocytes # (Auto) 1.8 x10^3/uL (1.0-4.8) 1.8 x10^3/uL (1.0-4.8) Monocytes # (Auto) 0.5 x10^3/uL (0.0-1.1) 0.4 x10^3/uL (0.0-1.1) Eosinophils # (Auto) 0.2 x10^3/uL (0.0-0.7) 0.2 x10^3/uL (0.0-0.7) Basophils # (Auto) 0.0 x10^3/uL (0.0-0.2) 0.0 x10^3/uL (0.0-0.2) Sodium Level 138 mmol/L (136-145) 142 mmol/L (136-145) Potassium Level 3.5 mmol/L (3.5-5.1) 3.8 mmol/L (3.5-5.1) Chloride Level 104 mmol/L (98-107) 108 mmol/L (98-107) Carbon Dioxide Level 30 mmol/L (21-32) 28 mmol/L (21-32) Anion Gap 4 (6-14) 6 (6-14) Blood Urea Nitrogen 11 mg/dL (7-20) 8 mg/dL (7-20) Creatinine 0.6 mg/dL (0.6-1.0) 0.7 mg/dL (0.6-1.0) Estimated GFR (Cockcroft-Gault) 104.2 87.2 BUN/Creatinine Ratio 18 (6-20) 11 (6-20) Glucose Level 132 mg/dL (70-99) 95 mg/dL (70-99) Calcium Level 8.8 mg/dL (8.5-10.1) 8.9 mg/dL (8.5-10.1) Total Bilirubin 0.2 mg/dL (0.2-1.0) 0.3 mg/dL (0.2-1.0) Aspartate Amino Transf (AST/SGOT) 21 U/L (15-37) 25 U/L (15-37) Alanine Aminotransferase (ALT/SGPT) 25 U/L (14-59) 30 U/L (14-59) Alkaline Phosphatase 82 U/L (46-116) 79 U/L (46-116) Total Protein 7.5 g/dL (6.4-8.2) 6.9 g/dL (6.4-8.2) Albumin 3.4 g/dL (3.4-5.0) 3.0 g/dL (3.4-5.0) Albumin/Globulin Ratio 0.8 (1.0-1.7) 0.8 (1.0-1.7) Prothrombin Time 13.0 SEC (11.7-14.0) Prothromb Time International Ratio 1.0 (0.8-1.1) Urine Collection Type Unknown Urine Color Yellow Urine Clarity Clear Urine pH 6.5 Urine Specific [place] 1.010 Urine Protein Negative mg/dL (NEG-TRACE) Urine Glucose (UA) Negative mg/dL (NEG) Urine Ketones (Stick) Negative mg/dL (NEG) Urine Blood Negative (NEG) Urine Nitrite Negative (NEG) Urine Bilirubin Negative (NEG) Urine Urobilinogen Dipstick 0.2 mg/dL (0.2 mg/dL) Urine Leukocyte Esterase Small (NEG) Urine RBC 0 /HPF (0-2) Urine WBC 5-10 /HPF (0-4) Urine Squamous Epithelial Cells Occ /LPF Urine Bacteria Few /HPF (0-FEW) Urine Mucus Slight /LPF Laboratory Tests Test 09/17/18 04:30 Urine Collection Type Unknown Urine Color Yellow Urine Clarity Clear Urine pH 6.5 Urine Specific [place] 1.010 Urine Protein Negative mg/dL (NEG-TRACE) Urine Glucose (UA) Negative mg/dL (NEG) Urine Ketones (Stick) Negative mg/dL (NEG) Urine Blood Negative (NEG) Urine Nitrite Negative (NEG) Urine Bilirubin Negative (NEG) Urine Urobilinogen Dipstick 0.2 mg/dL (0.2 mg/dL) Urine Leukocyte Esterase Small (NEG) Urine RBC 0 /HPF (0-2) Urine WBC 5-10 /HPF (0-4) Urine Squamous Epithelial Cells Occ /LPF Urine Bacteria Few /HPF (0-FEW) Urine Mucus Slight /LPF VIOLET LAZO MD 09/17/18 1819: SURGICAL PROGRESS NOTE Assessment/Plan w/u in progress awaiting to hear whether she will be able to receive walter adjuvant chemo-RoRx CHELSIE BOURNE APRN Sep 17, 2018 10:03 VIOLET LAZO MD Sep 17, 2018 18:19
[2018-09-17] MEDS: SENNOSIDES/DOCUSATE 8.6/50MG TABLET. PO SCH ×2 (10:19→21:37)
[2018-09-17 11:00] VITALS: BP 101/69
--- NOTE | 2018-09-17 11:36 | PDOC ---
PROGRESS NOTES History of Present Illness History of Present Illness Assessment/Plan Assessment/Plan Invasive AdenoCA rectal, by C scope biospy findings Rectal bleed/rectal pain Circumferential wall thickening of the rectum. Perirectal lymph nodes. Left internal iliac lymph node. wall thickening of the descending colon and sigmoid colon. Additional areas of malignancy or colitis are possible. Plan: MRI of the pelvis for staging workup. Admit 2 mN Heme onc, radiation onc, general surgery following pt has no insurance, [facility] has declined to treat due to inability to pay for extensive treatment Vitals Vitals Vital Signs Date Time Temp Pulse Resp B/P (MAP) Pulse Ox O2 Delivery O2 Flow Rate FiO2 09/17/18 07:00 98.2 60 20 97/64 (75) 97 Room Air 98.2 Physical Exam General: Alert, Oriented X3, Cooperative, No acute distress Heart: Regular rate, Normal S1, Normal S2 Lungs: Clear Extremities: No clubbing, No cyanosis, No edema, Normal pulses, No tenderness/ swelling Skin: No rashes, No breakdown, No significant lesion Labs LABS Laboratory Tests Test 09/17/18 04:30 Urine Collection Type Unknown Urine Color Yellow Urine Clarity Clear Urine pH 6.5 Urine Specific [place] 1.010 Urine Protein Negative mg/dL (NEG-TRACE) Urine Glucose (UA) Negative mg/dL (NEG) Urine Ketones (Stick) Negative mg/dL (NEG) Urine Blood Negative (NEG) Urine Nitrite Negative (NEG) Urine Bilirubin Negative (NEG) Urine Urobilinogen Dipstick 0.2 mg/dL (0.2 mg/dL) Urine Leukocyte Esterase Small (NEG) Urine RBC 0 /HPF (0-2) Urine WBC 5-10 /HPF (0-4) Urine Squamous Epithelial Cells Occ /LPF Urine Bacteria Few /HPF (0-FEW) Urine Mucus Slight /LPF Assessment and Plan Assessmemt and Plan CT study of the chest and abdomen and pelvis with contrast Clinical indications: Rectal cancer. TECHNIQUE: After IV infusion of 75 cc of Omnipaque 300, helical CT scanning of the chest and abdomen and pelvis was performed. No GI contrast was administered. This may decrease the sensitivity to detect GI tract pathology. PQRS compliance Statement One or more of the following individualized dose reduction techniques were utilized for this study: 1. Automated exposure control 2. Adjustment of the mA and/or kV according to patient size 3. Use of iterative reconstruction technique COMPARISON: None available. CHEST CT: No focal aneurysmal dilatation of the thoracic aorta is seen. No intimal flap or dissection is seen. Heart size is normal and no pericardial effusion is seen. No enlarged thoracic lymphadenopathy is evident. No pleural effusion or pneumothorax is seen. No lung infiltrate or lung mass is evident. No lung nodule is seen. The proximal bronchial tree is patent. No lytic process is seen. IMPRESSION: No acute abnormality of the chest. No lung metastatic disease is evident. ABDOMEN AND PELVIS CT: The liver and spleen and pancreas and gallbladder are normal. No extra hepatic biliary ductal dilatation is seen. No adrenal mass is evident. Small nonobstructing punctate stone of the lower pole right kidney is seen. No renal mass or hydronephrosis is seen. Urinary bladder wall is smooth. No uterine mass is seen. No dominant ovarian cyst or mass is evident. No focal aneurysmal dilatation of the abdominal aorta is seen. No enlarged abdominal lymphadenopathy is evident. There is wall thickening of the rectum. Mild perirectal inflammatory change is present. . There are small perirectal lymph nodes present bilaterally more so on the left side and the largest lymph node is 8 mm. There is a left internal iliac lymph node measuring 25 mm. There is wall thickening of the proximal and mid sigmoid colon. There is diffuse segmental wall thickening of the descending colon including the splenic flexure. The terminal ileum is unremarkable. The appendix is normal. No obstructive bowel pattern is evident. No free air or free fluid is seen. No lytic process is seen. IMPRESSION: Circumferential wall thickening of the rectum. Perirectal lymph nodes. Left internal iliac lymph node. There is wall thickening of the descending colon and sigmoid colon. Additional areas of malignancy or colitis are possible. Therefore, evaluation with colonoscopy is recommended. Electronically signed by: Kimi eLi MD (09/15/2018 7:50 PM) [facility] DICTATED and SIGNED BY: KIMI LEI MD DATE: 09/15/181937 Comment Review of Relevant I have reviewed the following items dinora (where applicable) has been applied. Labs Laboratory Tests Test 09/15/18 17:00 09/16/18 05:00 09/17/18 04:30 White Blood Count 6.1 x10^3/uL (4.0-11.0) 5.1 x10^3/uL (4.0-11.0) Red Blood Count 4.55 x10^6/uL (3.50-5.40) 4.32 x10^6/uL (3.50-5.40) Hemoglobin 12.9 g/dL (12.0-15.5) 12.3 g/dL (12.0-15.5) Hematocrit 39.0 % (36.0-47.0) 37.5 % (36.0-47.0) Mean Corpuscular Volume 86 fL (79-100) 87 fL (79-100) Mean Corpuscular Hemoglobin 28 pg (25-35) 29 pg (25-35) Mean Corpuscular Hemoglobin Concent 33 g/dL (31-37) 33 g/dL (31-37) Red Cell Distribution Width 13.5 % (11.5-14.5) 13.3 % (11.5-14.5) Platelet Count 226 x10^3/uL (140-400) 209 x10^3/uL (140-400) Neutrophils (%) (Auto) 60 % (31-73) 52 % (31-73) Lymphocytes (%) (Auto) 29 % (24-48) 36 % (24-48) Monocytes (%) (Auto) 8 % (0-9) 8 % (0-9) Eosinophils (%) (Auto) 3 % (0-3) 5 % (0-3) Basophils (%) (Auto) 1 % (0-3) 1 % (0-3) Neutrophils # (Auto) 3.6 x10^3uL (1.8-7.7) 2.6 x10^3uL (1.8-7.7) Lymphocytes # (Auto) 1.8 x10^3/uL (1.0-4.8) 1.8 x10^3/uL (1.0-4.8) Monocytes # (Auto) 0.5 x10^3/uL (0.0-1.1) 0.4 x10^3/uL (0.0-1.1) Eosinophils # (Auto) 0.2 x10^3/uL (0.0-0.7) 0.2 x10^3/uL (0.0-0.7) Basophils # (Auto) 0.0 x10^3/uL (0.0-0.2) 0.0 x10^3/uL (0.0-0.2) Sodium Level 138 mmol/L (136-145) 142 mmol/L (136-145) Potassium Level 3.5 mmol/L (3.5-5.1) 3.8 mmol/L (3.5-5.1) Chloride Level 104 mmol/L (98-107) 108 mmol/L (98-107) Carbon Dioxide Level 30 mmol/L (21-32) 28 mmol/L (21-32) Anion Gap 4 (6-14) 6 (6-14) Blood Urea Nitrogen 11 mg/dL (7-20) 8 mg/dL (7-20) Creatinine 0.6 mg/dL (0.6-1.0) 0.7 mg/dL (0.6-1.0) Estimated GFR (Cockcroft-Gault) 104.2 87.2 BUN/Creatinine Ratio 18 (6-20) 11 (6-20) Glucose Level 132 mg/dL (70-99) 95 mg/dL (70-99) Calcium Level 8.8 mg/dL (8.5-10.1) 8.9 mg/dL (8.5-10.1) Total Bilirubin 0.2 mg/dL (0.2-1.0) 0.3 mg/dL (0.2-1.0) Aspartate Amino Transf (AST/SGOT) 21 U/L (15-37) 25 U/L (15-37) Alanine Aminotransferase (ALT/SGPT) 25 U/L (14-59) 30 U/L (14-59) Alkaline Phosphatase 82 U/L (46-116) 79 U/L (46-116) Total Protein 7.5 g/dL (6.4-8.2) 6.9 g/dL (6.4-8.2) Albumin 3.4 g/dL (3.4-5.0) 3.0 g/dL (3.4-5.0) Albumin/Globulin Ratio 0.8 (1.0-1.7) 0.8 (1.0-1.7) Prothrombin Time 13.0 SEC (11.7-14.0) Prothromb Time International Ratio 1.0 (0.8-1.1) Urine Collection Type Unknown Urine Color Yellow Urine Clarity Clear Urine pH 6.5 Urine Specific [place] 1.010 Urine Protein Negative mg/dL (NEG-TRACE) Urine Glucose (UA) Negative mg/dL (NEG) Urine Ketones (Stick) Negative mg/dL (NEG) Urine Blood Negative (NEG) Urine Nitrite Negative (NEG) Urine Bilirubin Negative (NEG) Urine Urobilinogen Dipstick 0.2 mg/dL (0.2 mg/dL) Urine Leukocyte Esterase Small (NEG) Urine RBC 0 /HPF (0-2) Urine WBC 5-10 /HPF (0-4) Urine Squamous Epithelial Cells Occ /LPF Urine Bacteria Few /HPF (0-FEW) Urine Mucus Slight /LPF Laboratory Tests Test 09/17/18 04:30 Urine Collection Type Unknown Urine Color Yellow Urine Clarity Clear Urine pH 6.5 Urine Specific [place] 1.010 Urine Protein Negative mg/dL (NEG-TRACE) Urine Glucose (UA) Negative mg/dL (NEG) Urine Ketones (Stick) Negative mg/dL (NEG) Urine Blood Negative (NEG) Urine Nitrite Negative (NEG) Urine Bilirubin Negative (NEG) Urine Urobilinogen Dipstick 0.2 mg/dL (0.2 mg/dL) Urine Leukocyte Esterase Small (NEG) Urine RBC 0 /HPF (0-2) Urine WBC 5-10 /HPF (0-4) Urine Squamous Epithelial Cells Occ /LPF Urine Bacteria Few /HPF (0-FEW) Urine Mucus Slight /LPF Medications Current Medications Sodium Chloride 1,000 ml @ 1,000 mls/hr 1X ONCE IV Last administered on at 17:46; Start 09/15/18 at 17:15; Stop 09/15/18 at 18:14; Status DC Ondansetron HCl (Zofran) 4 mg 1X ONCE IV Last administered on 09/15/18at 17:48 ; Start 09/15/18 at 17:15; Stop 09/15/18 at 17:16; Status DC Morphine Sulfate (Morphine Sulfate) 4 mg 1X ONCE IV Last administered on at 17:49; Start 09/15/18 at 17:15; Stop 09/15/18 at 17:16; Status DC Ondansetron HCl (Zofran) 4 mg PRN Q8HRS PRN IV NAUSEA/VOMITING; Start 09/15/18 at 17:30; Stop 09/15/18 at 17:57; Status DC Morphine Sulfate (Morphine Sulfate) 4 mg PRN Q2HR PRN IV PAIN; Start 09/15/18 at 17:30; Stop 09/15/18 at 18:03; Status DC Ondansetron HCl (Zofran) 4 mg PRN Q6HRS PRN IV NAUSEA/VOMITING 1ST CHOICE; Start 09/15/18 at 17:30 Prochlorperazine Edisylate (Compazine) 10 mg PRN Q6HRS PRN IV NAUSEA/VOMITING 2ND CHOICE; Start 09/15/18 at 17:30 Prochlorperazine (Compazine) 25 mg PRN Q12HR PRN [place] NAUSEA/VOMITING; Start at 17:30 Al Hydroxide/Mg Hydroxide (Mylanta Plus Xs) 30 ml PRN Q3HRS PRN PO HEARTBURN / GAS; Start 09/15/18 at 17:30 Calcium Carbonate/ Glycine (Tums) 500 mg PRN Q3HRS PRN PO UPSET STOMACH; Start 09/15/18 at 17:30 Zolpidem Tartrate (Ambien) 5 mg PRN QHS PRN PO INSOMNIA, MAY REPEAT IN 1HR; Start 09/15/18 at 17:30 Oxycodone HCl (Roxicodone) 5 mg PRN Q3HRS PRN PO PAIN; Start 09/15/18 at 17:30 Morphine Sulfate (Morphine Sulfate) 1 mg PRN Q1HR PRN IV PAIN SEVERE; Start at 17:30; Stop 09/15/18 at 18:04; Status DC Acetaminophen (Tylenol) 650 mg PRN Q6HRS PRN PO Headaches, Temp > 101.5F; Start 09/15/18 at 17:30 Senna/Docusate Sodium (Senna Plus) 1 tab BID PO Last administered on 09/17/18at 10:19; Start 09/15/18 at 21:00 Magnesium Hydroxide (Milk Of Magnesia) 2,400 mg PRN Q12HR PRN PO CONSTIPATION; Start 09/15/18 at 17:30 Iohexol (Omnipaque 300 Mg/ml) 75 ml 1X ONCE IV Last administered on 09/15/18at 18:28; Start 09/15/18 at 18:00; Stop 09/15/18 at 18:02; Status DC Info (CONTRAST GIVEN -- Rx MONITORING) 1 each PRN DAILY PRN MC SEE COMMENTS; Start 09/15/18 at 18:15; Stop 09/17/18 at 18:14 Morphine Sulfate (Morphine Sulfate) 1 mg PRN Q1HR PRN IV PAIN SEVERE; Start at 18:04 Gadobutrol (Gadavist) 6 mmol 1X ONCE IV Last administered on 09/17/18at 09:40; Start 09/17/18 at 09:30; Stop 09/17/18 at 09:31; Status DC Vitals/I & O Vital Sign - Last 24 Hours 09/16/18 09/16/18 09/16/18 09/16/18 15:00 19:20 20:00 23:00 Temp 97.2 99.0 98.0 97.2 99.0 98.0 Pulse 72 68 62 Resp 20 20 18 B/P (MAP) 132/81 (98) 99/65 (76) 118/56 (76) Pulse Ox 98 96 97 O2 Delivery Room Air Room Air Room Air Room Air 09/17/18 09/17/18 03:00 07:00 Temp 98.2 98.2 98.2 98.2 Pulse 68 60 Resp 18 20 B/P (MAP) 102/64 (77) 97/64 (75) Pulse Ox 98 97 O2 Delivery Room Air Room Air Intake and Output 09/16/18 09/16/18 09/17/18 15:01 23:01 07:01 Intake Total 340 ml 0 ml 200 ml Balance 340 ml 0 ml 200 ml DANIELA PICKENS MD Sep 17, 2018 11:36
[2018-09-17 15:50] VITALS: BP 98/65
[2018-09-17 19:00] VITALS: BP 99/61
--- NOTE | 2018-09-17 19:39 | CONS ---
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 Initial diagnosis was confirmed at outpatient colonoscopy on 08/30/2018. ICD 10 C20 C77.5 HISTORY OF PRESENT ILLNESS: The patient is a 53-year-old woman who moved here from [place] with limited understanding of Yi, to an [place] gentleman named Chris Boyd. She has had a several month history of intermittent gross rectal bleeding associated with fatigue, intermittent pain and minimal weight loss. She underwent colonoscopy by Dr. Dwayne Carter on 08/30/2018. This revealed malignant partially obstructing distal rectal mass. Biopsy revealed moderately differentiated adenocarcinoma. She currently denies any pain, nausea, vomiting. Main complaint has been ongoing fatigue. She has no significant pain at this time. PAST MEDICAL HISTORY: Essentially unremarkable. She has been healthy until this time. SOCIAL HISTORY: to Simon Boyd, 1 adult child living in [place]. Nonsmoker, nondrinker. Recently in 01/2017 after leaving [place] in 07/2015. FAMILY HISTORY: Unremarkable for malignancy. MEDICATIONS PRIOR TO ADMISSION: None. ALLERGIES: No known allergies. PHYSICAL EXAMINATION: GENERAL: Revealed a youthful appearing woman, appearing younger than her chronologic age. HEENT: Unremarkable. She had no scleral icterus. LYMPH NODES: She had no palpable cervical or supraclavicular adenopathy. ABDOMEN: Unremarkable. No hepatomegaly, mass or tenderness. EXTREMITIES: Revealed no clubbing, cyanosis or edema. NEUROLOGIC: She had no focal neurologic deficits. RECTAL: There was restriction at the fingertip with multinodular mass with a narrowed lumen at the fingertip, mobile, nontender. No bleeding encountered. DIAGNOSTIC DATA: CT scan of the chest, abdomen and pelvis, chest was unremarkable, no evidence for metastatic disease. There was wall thickening of the descending colon and sigmoid colon, circumferential wall thickening of the rectum with distinct perirectal lymph nodes and a dominant left internal iliac lymph node that measured 2.5 cm in size. No ascites. Liver clear of metastatic disease. MRI of pelvis has been scheduled to further assess extent of local and regional disease. LABORATORY DATA: CBC from 09/16/2018, hemoglobin 12.3, white count 5100, platelet count 209,000. Chemistry panel essentially within normal limits. Normal liver function tests. Calcium 8.9, creatinine 0.7. CEA level 4.0 IMPRESSION: In summary, my impression is that of stage 3A (T2N1M0) adenocarcinoma of the distal rectum. She has locally advanced disease as seen by the radiographic appearance of perirectal and left internal iliac adenopathy. I agree with Dr. Diez, she is best treated with neoadjuvant chemoradiation therapy followed by surgical resection with a low anterior resection if feasible; if not, abdominoperineal resection. At this time, she is relatively asymptomatic. She has had no significant bleeding since admission with a relatively preserved hemoglobin reflecting relatively modest chronic blood loss. At this time, we await her status with regard to her ability to be approved for preoperative radiation therapy and chemotherapy. If that cannot be done, then clearly surgical resection up front would be the second choice. It is clear from prospective data that chemoradiation therapy followed by surgery had some more durable local control and improved survival over surgery alone. We will discuss this once her is available on the morning of 09/18/2018. Thank you for allowing us to participate in her evaluation. THERESE MAC MD DR: BRANDI/aj JOB#: [id number] / [id number] DWAYNE Navarro MD [facility]
[2018-09-17 23:00] VITALS: BP 105/66
[2018-09-18 03:00] VITALS: BP 98/59
[2018-09-18 04:05] LABS: BASO % 1 % (0-3); EOS # 0.2 x10^3/uL (0.0-0.7); EOS % 4 % (0-3); HEMATOCRIT 38.7 % (36.0-47.0); HEMOGLOBIN 12.9 g/dL (12.0-15.5); LYMPH # 1.9 x10^3/uL (1.0-4.8); LYMPH % 34 % (24-48); MEAN CORPUSCULAR HEMOGLOBIN 29 pg (25-35); MEAN CORPUSCULAR HGB CONC 34 g/dL (31-37); MEAN CORPUSCULAR VOLUME 86 fL (79-100); MONO # 0.5 x10^3/uL (0.0-1.1); MONO % 8 % (0-9); NEUT # 3.1 x10^3uL (1.8-7.7); NEUT % 53 % (31-73); PLATELET COUNT 192 x10^3/uL (140-400); RED BLOOD COUNT 4.49 x10^6/uL (3.50-5.40); RED CELL DISTRIBUTION WIDTH 13.2 % (11.5-14.5); WHITE BLOOD COUNT 5.7 x10^3/uL (4.0-11.0)
[2018-09-18 04:22] LABS: ALBUMIN 3.1 g/dL (3.4-5.0); ALBUMIN/GLOBULIN RATIO 0.8 (1.0-1.7); CREATININE 0.6 mg/dL (0.6-1.0); GFR 104.2; POTASSIUM 3.6 mmol/L (3.5-5.1); TOTAL BILIRUBIN 0.3 mg/dL (0.2-1.0); TOTAL PROTEIN 7.2 g/dL (6.4-8.2)
[2018-09-18 07:00] VITALS: BP 96/62
[2018-09-18] MEDS: SENNOSIDES/DOCUSATE 8.6/50MG TABLET. PO SCH (08:19)
--- NOTE | 2018-09-18 08:47 | RAD ---
MRI pelvis without and with contrast 09/17/2018 CLINICAL INDICATION: Rectal cancer staging. COMPARISON: CT abdomen and pelvis 09/15/2017 TECHNIQUE: Multisequence, multiplanar MR imaging of the pelvis is performed without and following the intravenous administration of 6 mL Gadavist gadolinium-based contrast material. FINDINGS: 1. Primary tumor: Morphology, location, and characteristics: Distance to the anal verge: 3.0 cm Distance to the top of sphincter complex/anorectal junction: The inferior margin of the tumor is at the level of the sphincter complex. Relationship to the anterior peritoneal reflection: Below Craniocaudal length: 4.3 cm Morphology: The inferior margin of the tumor which is just above the level of the anorectal junction is circumferential with a polyploid morphology, however the superior margin of the tumor is semicircumferential along the posterior one half of the mid rectum. Mucinous: No 2. T category: Extramural depth of invasion: There is diffuse loss of the T2 hypointense muscularis propria along the anterior one half of the tumor with a 0.7 cm of anterior extension beyond the muscularis propria most prominent at the 12:00 position seen on series 18/image 15 were extends to the posterior surface of the lower cervix without evidence of involvement. There is diffuse involvement of the muscularis propria along the left lateral aspect of the tumor best seen on the high-resolution coronal T2-weighted images series 20/image 10 and 11. MR T category:T3c Structures with possible invasion: Urinary bladder: None Ureters: None Uterus: None Cervix: The anterior margin of the tumor extends anteriorly to abut the posterior margin of the lower cervix without evidence of invasion Sacrum: Right sacral T2 hyperintensity with enhancement measuring 1.2 cm series 5/image 8, series 7/image 9. 4 low rectal tumors: Involvement of anal sphincters: The tumor extends to a level just above the sphincter complex 3. Extramural venous invasion: Equivocal 4. Circumferential resection margin: Less than 1 mm to the mesorectal fascia anteriorly where there is abutment of the posterior aspect of the lower cervix. 5. Mesorectal lymph nodes and tumor deposits: There are several highly suspicious superior rectal and mesorectal lymph nodes. There are clustered 3 superior rectal lymph nodes with a round morphology and internal heterogeneity measuring 0.9, 0.7 and 0.6 cm series 18/image 3, right left posterior mesorectal fascia lymph nodes which are suspicious due to morphology and internal heterogeneity measuring 0.5 and 0.6 cm series 18/image 5, left mesorectal fascial lymph node 0.9 cm with abnormal morphology and internal heterogeneity series 18/image 9. 6. Extra-mesorectal lymph nodes: There is a large morphologically abnormal left obturator lymph node measuring 1.7 x 2.2 cm series 18/image 12. IMPRESSION: 1. Low rectal tumor with significant extension through the muscularis propria consistent with stage T3c. 2. Multiple suspicious mesorectal, superior rectal and large left obturator lymphadenopathy consistent with liang metastatic disease. 3. Small right sacral enhancing lesion which does not have significant intrinsic T1 hypointensity and is equivocal for osseous metastasis. If further evaluation is clinically indicated, PET/CT is recommended for further evaluation. Electronically signed by: Laz Bill MD (09/18/2018 8:42 AM) [facility]
--- NOTE | 2018-09-18 08:55 | PDOC ---
PROGRESS NOTES Subjective Subjective HPI - f/u of Rectal cancer T3N1M0, diagnosed on 08/30/2018 ROS - no abd pain Objective Objective Vital Signs Date Time Temp Pulse Resp B/P (MAP) Pulse Ox O2 Delivery O2 Flow Rate FiO2 09/18/18 07:00 97.7 67 18 96/62 (73) 99 Room Air 97.7 Intake and Output 09/18/18 07:01 Intake Total 640 ml Balance 640 ml Intake Oral 640 ml # Voids 8 Physical Exam General: Alert, Oriented X3, No acute distress Psych/Mental Status: Mental status NL Assessment Assessment IMPRESSION AND PLAN: 1. Rectal cancer T3N1M0, diagnosed on 08/30/2018. I have recommended neoadjuvant chemotherapy and radiation therapy followed by surgery, followed by adjuvant chemotherapy. The patient and her mentioned that they do not have insurance and they will not be able to afford all these treatments. The pt's discussed with patient financial counselor on 09/03/18 and discussed payment options and expressed that he will not be able to afford it and hence will not schedule any appointments at . I will consult social worker aide for assistance if possible. I also discussed with Dr. Boo Wilson. I already discussed with Dr. Medina. If neoadjuvant chemotherapy and radiation is not possible, then she may need to have definite surgery as soon as possible. MRI of the pelvis 09/17/18 reveals Low rectal tumor with significant extension through the muscularis propria consistent with stage T3c. Multiple suspicious mesorectal, superior rectal and large left obturator lymphadenopathy consistent with liang metastatic disease. Small right sacral enhancing lesion which does not have significant intrinsic T1 hypointensity and is equivocal for osseous metastasis. If further evaluation is clinically indicated, PET/CT is recommended for further evaluation.. 2. Rectal bleeding due to malignancy. Hemoglobin normal at 12.3. Continue to monitor. Comment Review of Relevant I have reviewed the following items dinora (where applicable) has been applied. Labs Laboratory Tests Test 09/17/18 04:30 09/18/18 03:30 Urine Collection Type Unknown Urine Color Yellow Urine Clarity Clear Urine pH 6.5 Urine Specific [place] 1.010 Urine Protein Negative mg/dL (NEG-TRACE) Urine Glucose (UA) Negative mg/dL (NEG) Urine Ketones (Stick) Negative mg/dL (NEG) Urine Blood Negative (NEG) Urine Nitrite Negative (NEG) Urine Bilirubin Negative (NEG) Urine Urobilinogen Dipstick 0.2 mg/dL (0.2 mg/dL) Urine Leukocyte Esterase Small (NEG) Urine RBC 0 /HPF (0-2) Urine WBC 5-10 /HPF (0-4) Urine Squamous Epithelial Cells Occ /LPF Urine Bacteria Few /HPF (0-FEW) Urine Mucus Slight /LPF White Blood Count 5.7 x10^3/uL (4.0-11.0) Red Blood Count 4.49 x10^6/uL (3.50-5.40) Hemoglobin 12.9 g/dL (12.0-15.5) Hematocrit 38.7 % (36.0-47.0) Mean Corpuscular Volume 86 fL (79-100) Mean Corpuscular Hemoglobin 29 pg (25-35) Mean Corpuscular Hemoglobin Concent 34 g/dL (31-37) Red Cell Distribution Width 13.2 % (11.5-14.5) Platelet Count 192 x10^3/uL (140-400) Neutrophils (%) (Auto) 53 % (31-73) Lymphocytes (%) (Auto) 34 % (24-48) Monocytes (%) (Auto) 8 % (0-9) Eosinophils (%) (Auto) 4 % (0-3) Basophils (%) (Auto) 1 % (0-3) Neutrophils # (Auto) 3.1 x10^3uL (1.8-7.7) Lymphocytes # (Auto) 1.9 x10^3/uL (1.0-4.8) Monocytes # (Auto) 0.5 x10^3/uL (0.0-1.1) Eosinophils # (Auto) 0.2 x10^3/uL (0.0-0.7) Basophils # (Auto) 0.0 x10^3/uL (0.0-0.2) Sodium Level 142 mmol/L (136-145) Potassium Level 3.6 mmol/L (3.5-5.1) Chloride Level 106 mmol/L (98-107) Carbon Dioxide Level 27 mmol/L (21-32) Anion Gap 9 (6-14) Blood Urea Nitrogen 13 mg/dL (7-20) Creatinine 0.6 mg/dL (0.6-1.0) Estimated GFR (Cockcroft-Gault) 104.2 BUN/Creatinine Ratio 22 (6-20) Glucose Level 109 mg/dL (70-99) Calcium Level 9.0 mg/dL (8.5-10.1) Total Bilirubin 0.3 mg/dL (0.2-1.0) Aspartate Amino Transf (AST/SGOT) 24 U/L (15-37) Alanine Aminotransferase (ALT/SGPT) 32 U/L (14-59) Alkaline Phosphatase 85 U/L (46-116) Total Protein 7.2 g/dL (6.4-8.2) Albumin 3.1 g/dL (3.4-5.0) Albumin/Globulin Ratio 0.8 (1.0-1.7) Laboratory Tests Test 09/18/18 03:30 White Blood Count 5.7 x10^3/uL (4.0-11.0) Red Blood Count 4.49 x10^6/uL (3.50-5.40) Hemoglobin 12.9 g/dL (12.0-15.5) Hematocrit 38.7 % (36.0-47.0) Mean Corpuscular Volume 86 fL (79-100) Mean Corpuscular Hemoglobin 29 pg (25-35) Mean Corpuscular Hemoglobin Concent 34 g/dL (31-37) Red Cell Distribution Width 13.2 % (11.5-14.5) Platelet Count 192 x10^3/uL (140-400) Neutrophils (%) (Auto) 53 % (31-73) Lymphocytes (%) (Auto) 34 % (24-48) Monocytes (%) (Auto) 8 % (0-9) Eosinophils (%) (Auto) 4 % (0-3) Basophils (%) (Auto) 1 % (0-3) Neutrophils # (Auto) 3.1 x10^3uL (1.8-7.7) Lymphocytes # (Auto) 1.9 x10^3/uL (1.0-4.8) Monocytes # (Auto) 0.5 x10^3/uL (0.0-1.1) Eosinophils # (Auto) 0.2 x10^3/uL (0.0-0.7) Basophils # (Auto) 0.0 x10^3/uL (0.0-0.2) Sodium Level 142 mmol/L (136-145) Potassium Level 3.6 mmol/L (3.5-5.1) Chloride Level 106 mmol/L (98-107) Carbon Dioxide Level 27 mmol/L (21-32) Anion Gap 9 (6-14) Blood Urea Nitrogen 13 mg/dL (7-20) Creatinine 0.6 mg/dL (0.6-1.0) Estimated GFR (Cockcroft-Gault) 104.2 BUN/Creatinine Ratio 22 (6-20) Glucose Level 109 mg/dL (70-99) Calcium Level 9.0 mg/dL (8.5-10.1) Total Bilirubin 0.3 mg/dL (0.2-1.0) Aspartate Amino Transf (AST/SGOT) 24 U/L (15-37) Alanine Aminotransferase (ALT/SGPT) 32 U/L (14-59) Alkaline Phosphatase 85 U/L (46-116) Total Protein 7.2 g/dL (6.4-8.2) Albumin 3.1 g/dL (3.4-5.0) Albumin/Globulin Ratio 0.8 (1.0-1.7) Medications Current Medications Sodium Chloride 1,000 ml @ 1,000 mls/hr 1X ONCE IV Last administered on at 17:46; Start 09/15/18 at 17:15; Stop 09/15/18 at 18:14; Status DC Ondansetron HCl (Zofran) 4 mg 1X ONCE IV Last administered on 09/15/18at 17:48 ; Start 09/15/18 at 17:15; Stop 09/15/18 at 17:16; Status DC Morphine Sulfate (Morphine Sulfate) 4 mg 1X ONCE IV Last administered on at 17:49; Start 09/15/18 at 17:15; Stop 09/15/18 at 17:16; Status DC Ondansetron HCl (Zofran) 4 mg PRN Q8HRS PRN IV NAUSEA/VOMITING; Start 09/15/18 at 17:30; Stop 09/15/18 at 17:57; Status DC Morphine Sulfate (Morphine Sulfate) 4 mg PRN Q2HR PRN IV PAIN; Start 09/15/18 at 17:30; Stop 09/15/18 at 18:03; Status DC Ondansetron HCl (Zofran) 4 mg PRN Q6HRS PRN IV NAUSEA/VOMITING 1ST CHOICE; Start 09/15/18 at 17:30 Prochlorperazine Edisylate (Compazine) 10 mg PRN Q6HRS PRN IV NAUSEA/VOMITING 2ND CHOICE; Start 09/15/18 at 17:30 Prochlorperazine (Compazine) 25 mg PRN Q12HR PRN SD NAUSEA/VOMITING; Start at 17:30 Al Hydroxide/Mg Hydroxide (Mylanta Plus Xs) 30 ml PRN Q3HRS PRN PO HEARTBURN / GAS; Start 09/15/18 at 17:30 Calcium Carbonate/ Glycine (Tums) 500 mg PRN Q3HRS PRN PO UPSET STOMACH; Start 09/15/18 at 17:30 Zolpidem Tartrate (Ambien) 5 mg PRN QHS PRN PO INSOMNIA, MAY REPEAT IN 1HR Last administered on 09/17/18at 21:38; Start 09/15/18 at 17:30 Oxycodone HCl (Roxicodone) 5 mg PRN Q3HRS PRN PO PAIN; Start 09/15/18 at 17:30 Morphine Sulfate (Morphine Sulfate) 1 mg PRN Q1HR PRN IV PAIN SEVERE; Start at 17:30; Stop 09/15/18 at 18:04; Status DC Acetaminophen (Tylenol) 650 mg PRN Q6HRS PRN PO Headaches, Temp > 101.5F; Start 09/15/18 at 17:30 Senna/Docusate Sodium (Senna Plus) 1 tab BID PO Last administered on 09/18/18at 08:19; Start 09/15/18 at 21:00 Magnesium Hydroxide (Milk Of Magnesia) 2,400 mg PRN Q12HR PRN PO CONSTIPATION Last administered on 09/18/18at 08:18; Start 09/15/18 at 17:30 Iohexol (Omnipaque 300 Mg/ml) 75 ml 1X ONCE IV Last administered on 09/15/18at 18:28; Start 09/15/18 at 18:00; Stop 09/15/18 at 18:02; Status DC Info (CONTRAST GIVEN -- Rx MONITORING) 1 each PRN DAILY PRN MC SEE COMMENTS; Start 09/15/18 at 18:15; Stop 09/17/18 at 18:14; Status DC Morphine Sulfate (Morphine Sulfate) 1 mg PRN Q1HR PRN IV PAIN SEVERE; Start at 18:04 Gadobutrol (Gadavist) 6 mmol 1X ONCE IV Last administered on 09/17/18at 09:40; Start 09/17/18 at 09:30; Stop 09/17/18 at 09:31; Status DC Vitals/I & O Vital Sign - Last 24 Hours 09/17/18 09/17/18 09/17/18 09/17/18 11:00 15:50 19:00 19:45 Temp 98.5 98.2 98.2 98.5 98.2 98.2 Pulse 76 66 65 Resp 16 18 18 B/P (MAP) 101/69 (80) 98/65 (76) 99/61 (74) Pulse Ox 98 98 97 O2 Delivery Room Air Room Air Room Air Room Air 09/17/18 09/18/18 09/18/18 23:00 03:00 07:00 Temp 98.4 97.7 97.7 98.4 97.7 97.7 Pulse 65 53 67 Resp 18 18 B/P (MAP) 105/66 (79) 98/59 (72) 96/62 (73) Pulse Ox 98 100 99 O2 Delivery Room Air Room Air Room Air Intake and Output 09/17/18 09/17/18 09/18/18 15:01 23:01 07:01 Intake Total 640 ml Balance 640 ml OZ MCDANIEL MD Sep 18, 2018 08:55
--- NOTE | 2018-09-18 09:51 | PDOC2 ---
CONSULT Date of Consult Date of Consult DATE: 09/16/18 TIME: 11:00 Reason for Consult Reason for Consult: rectal bleeding Referring Physician Referring Physician: Dr Chary VINCENT Identification/Chief Complaint Chief Complaint BRB per rectum Source Source: Caregiver, Chart review, Patient (with help of her husbands google translate) History of Present Illness Reason for Visit: Pete is a 53 yo non Faroese speaking lady who because of rectal bleeding had a recent colonoscopy. They just learned the biopsies show carcinoma. Past Medical History Cardiovascular: No pertinent hx Pulmonary: No pertinent hx GI: No pertinent hx Heme/Onc: No pertinent hx Hepatobiliary: No pertinent hx Psych: No pertinent hx Rheumatologic: No pertinent hx Infectious disease: No pertinent hx ENT: No pertinent hx Renal/: No pertinent hx Endocrine: No pertinent hx Dermatology: No pertinent hx Past Surgical History Past Surgical History: No pertinent history Family History Family History: No Significant Social History No ALCOHOL: none Drugs: None Current Medications Current Medications Current Medications Sodium Chloride 1,000 ml @ 1,000 mls/hr 1X ONCE IV Last administered on at 17:46; Start 09/15/18 at 17:15; Stop 09/15/18 at 18:14; Status DC Ondansetron HCl (Zofran) 4 mg 1X ONCE IV Last administered on 09/15/18at 17:48 ; Start 09/15/18 at 17:15; Stop 09/15/18 at 17:16; Status DC Morphine Sulfate (Morphine Sulfate) 4 mg 1X ONCE IV Last administered on at 17:49; Start 09/15/18 at 17:15; Stop 09/15/18 at 17:16; Status DC Ondansetron HCl (Zofran) 4 mg PRN Q8HRS PRN IV NAUSEA/VOMITING; Start 09/15/18 at 17:30; Stop 09/15/18 at 17:57; Status DC Morphine Sulfate (Morphine Sulfate) 4 mg PRN Q2HR PRN IV PAIN; Start 09/15/18 at 17:30; Stop 09/15/18 at 18:03; Status DC Ondansetron HCl (Zofran) 4 mg PRN Q6HRS PRN IV NAUSEA/VOMITING 1ST CHOICE; Start 09/15/18 at 17:30 Prochlorperazine Edisylate (Compazine) 10 mg PRN Q6HRS PRN IV NAUSEA/VOMITING 2ND CHOICE; Start 09/15/18 at 17:30 Prochlorperazine (Compazine) 25 mg PRN Q12HR PRN NC NAUSEA/VOMITING; Start at 17:30 Al Hydroxide/Mg Hydroxide (Mylanta Plus Xs) 30 ml PRN Q3HRS PRN PO HEARTBURN / GAS; Start 09/15/18 at 17:30 Calcium Carbonate/ Glycine (Tums) 500 mg PRN Q3HRS PRN PO UPSET STOMACH; Start 09/15/18 at 17:30 Zolpidem Tartrate (Ambien) 5 mg PRN QHS PRN PO INSOMNIA, MAY REPEAT IN 1HR Last administered on 09/17/18at 21:38; Start 09/15/18 at 17:30 Oxycodone HCl (Roxicodone) 5 mg PRN Q3HRS PRN PO PAIN; Start 09/15/18 at 17:30 Morphine Sulfate (Morphine Sulfate) 1 mg PRN Q1HR PRN IV PAIN SEVERE; Start at 17:30; Stop 09/15/18 at 18:04; Status DC Acetaminophen (Tylenol) 650 mg PRN Q6HRS PRN PO Headaches, Temp > 101.5F; Start 09/15/18 at 17:30 Senna/Docusate Sodium (Senna Plus) 1 tab BID PO Last administered on 09/18/18at 08:19; Start 09/15/18 at 21:00 Magnesium Hydroxide (Milk Of Magnesia) 2,400 mg PRN Q12HR PRN PO CONSTIPATION Last administered on 09/18/18at 08:18; Start 09/15/18 at 17:30 Iohexol (Omnipaque 300 Mg/ml) 75 ml 1X ONCE IV Last administered on 09/15/18at 18:28; Start 09/15/18 at 18:00; Stop 09/15/18 at 18:02; Status DC Info (CONTRAST GIVEN -- Rx MONITORING) 1 each PRN DAILY PRN MC SEE COMMENTS; Start 09/15/18 at 18:15; Stop 09/17/18 at 18:14; Status DC Morphine Sulfate (Morphine Sulfate) 1 mg PRN Q1HR PRN IV PAIN SEVERE; Start at 18:04 Gadobutrol (Gadavist) 6 mmol 1X ONCE IV Last administered on 09/17/18at 09:40; Start 09/17/18 at 09:30; Stop 09/17/18 at 09:31; Status DC Allergies Allergies: Coded Allergies: No Known Drug Allergies (Unverified , 09/15/18) ROS Review of System negative with exception of present complaints Physical Exam General: Alert, No acute distress HEENT: Atraumatic Lungs: Normal air movement Heart: Regular rate Extremities: No clubbing Vitals VITALS Vital Signs Date Time Temp Pulse Resp B/P (MAP) Pulse Ox O2 Delivery O2 Flow Rate FiO2 09/18/18 07:40 Room Air 09/18/18 07:00 97.7 67 18 96/62 (73) 99 97.7 Labs Labs Laboratory Tests Test 09/17/18 04:30 09/18/18 03:30 Urine Collection Type Unknown Urine Color Yellow Urine Clarity Clear Urine pH 6.5 Urine Specific [place] 1.010 Urine Protein Negative mg/dL (NEG-TRACE) Urine Glucose (UA) Negative mg/dL (NEG) Urine Ketones (Stick) Negative mg/dL (NEG) Urine Blood Negative (NEG) Urine Nitrite Negative (NEG) Urine Bilirubin Negative (NEG) Urine Urobilinogen Dipstick 0.2 mg/dL (0.2 mg/dL) Urine Leukocyte Esterase Small (NEG) Urine RBC 0 /HPF (0-2) Urine WBC 5-10 /HPF (0-4) Urine Squamous Epithelial Cells Occ /LPF Urine Bacteria Few /HPF (0-FEW) Urine Mucus Slight /LPF White Blood Count 5.7 x10^3/uL (4.0-11.0) Red Blood Count 4.49 x10^6/uL (3.50-5.40) Hemoglobin 12.9 g/dL (12.0-15.5) Hematocrit 38.7 % (36.0-47.0) Mean Corpuscular Volume 86 fL (79-100) Mean Corpuscular Hemoglobin 29 pg (25-35) Mean Corpuscular Hemoglobin Concent 34 g/dL (31-37) Red Cell Distribution Width 13.2 % (11.5-14.5) Platelet Count 192 x10^3/uL (140-400) Neutrophils (%) (Auto) 53 % (31-73) Lymphocytes (%) (Auto) 34 % (24-48) Monocytes (%) (Auto) 8 % (0-9) Eosinophils (%) (Auto) 4 % (0-3) Basophils (%) (Auto) 1 % (0-3) Neutrophils # (Auto) 3.1 x10^3uL (1.8-7.7) Lymphocytes # (Auto) 1.9 x10^3/uL (1.0-4.8) Monocytes # (Auto) 0.5 x10^3/uL (0.0-1.1) Eosinophils # (Auto) 0.2 x10^3/uL (0.0-0.7) Basophils # (Auto) 0.0 x10^3/uL (0.0-0.2) Sodium Level 142 mmol/L (136-145) Potassium Level 3.6 mmol/L (3.5-5.1) Chloride Level 106 mmol/L (98-107) Carbon Dioxide Level 27 mmol/L (21-32) Anion Gap 9 (6-14) Blood Urea Nitrogen 13 mg/dL (7-20) Creatinine 0.6 mg/dL (0.6-1.0) Estimated GFR (Cockcroft-Gault) 104.2 BUN/Creatinine Ratio 22 (6-20) Glucose Level 109 mg/dL (70-99) Calcium Level 9.0 mg/dL (8.5-10.1) Total Bilirubin 0.3 mg/dL (0.2-1.0) Aspartate Amino Transf (AST/SGOT) 24 U/L (15-37) Alanine Aminotransferase (ALT/SGPT) 32 U/L (14-59) Alkaline Phosphatase 85 U/L (46-116) Total Protein 7.2 g/dL (6.4-8.2) Albumin 3.1 g/dL (3.4-5.0) Albumin/Globulin Ratio 0.8 (1.0-1.7) Laboratory Tests Test 09/18/18 03:30 White Blood Count 5.7 x10^3/uL (4.0-11.0) Red Blood Count 4.49 x10^6/uL (3.50-5.40) Hemoglobin 12.9 g/dL (12.0-15.5) Hematocrit 38.7 % (36.0-47.0) Mean Corpuscular Volume 86 fL (79-100) Mean Corpuscular Hemoglobin 29 pg (25-35) Mean Corpuscular Hemoglobin Concent 34 g/dL (31-37) Red Cell Distribution Width 13.2 % (11.5-14.5) Platelet Count 192 x10^3/uL (140-400) Neutrophils (%) (Auto) 53 % (31-73) Lymphocytes (%) (Auto) 34 % (24-48) Monocytes (%) (Auto) 8 % (0-9) Eosinophils (%) (Auto) 4 % (0-3) Basophils (%) (Auto) 1 % (0-3) Neutrophils # (Auto) 3.1 x10^3uL (1.8-7.7) Lymphocytes # (Auto) 1.9 x10^3/uL (1.0-4.8) Monocytes # (Auto) 0.5 x10^3/uL (0.0-1.1) Eosinophils # (Auto) 0.2 x10^3/uL (0.0-0.7) Basophils # (Auto) 0.0 x10^3/uL (0.0-0.2) Sodium Level 142 mmol/L (136-145) Potassium Level 3.6 mmol/L (3.5-5.1) Chloride Level 106 mmol/L (98-107) Carbon Dioxide Level 27 mmol/L (21-32) Anion Gap 9 (6-14) Blood Urea Nitrogen 13 mg/dL (7-20) Creatinine 0.6 mg/dL (0.6-1.0) Estimated GFR (Cockcroft-Gault) 104.2 BUN/Creatinine Ratio 22 (6-20) Glucose Level 109 mg/dL (70-99) Calcium Level 9.0 mg/dL (8.5-10.1) Total Bilirubin 0.3 mg/dL (0.2-1.0) Aspartate Amino Transf (AST/SGOT) 24 U/L (15-37) Alanine Aminotransferase (ALT/SGPT) 32 U/L (14-59) Alkaline Phosphatase 85 U/L (46-116) Total Protein 7.2 g/dL (6.4-8.2) Albumin 3.1 g/dL (3.4-5.0) Albumin/Globulin Ratio 0.8 (1.0-1.7) Images Images recent CT scan reviewed Assessment/Plan Assessment/Plan rectal bleeding locally advanced rectal carcinoma d/w Min and her as well as with Dr Diez recommended Rx would be walter-adjuvant chemo-RoRx unsure if these options are available to Min await that information will follow Thanks for consult VIOLET LAZO MD Sep 18, 2018 09:51
--- NOTE | 2018-09-18 09:55 | PDOC ---
Provider Note Provider Note SURG awaiting news on available treatments MRI reviewed VIOLET LAZO MD Sep 18, 2018 09:55
--- NOTE | 2018-09-18 10:29 | PDOC ---
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 Presented with rectal bleeding and intermittent pelvic pain. No symptoms currently. MRI just done 09/17/2018 4.3 cm tumor 3 cm from verge present just above anorectal junction. multiple mesorectal and largest left pelvic obturator LNs seen 1.7 x 2.2 cm. just started new job with insurance anticipated in 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 Best treatment would be walter adjuvant pelvic perineal radiation with infusional chemo, followed by APR then additional chemo. 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 This is contingent on financial and insurance status as discussed with Dr. Diez. Second choice is to proceed to surgery alone. Based on MRI findings with tumor extending to anal sphincter she is not a candidate for anal preserving resection. Discussed with patient (through and translation application on phone) and . Chris Boyd [phone] THERESE MAC MD Sep 18, 2018 10:29
--- NOTE | 2018-09-18 10:34 | PDOC ---
PROGRESS NOTES History of Present Illness History of Present Illness Assessment/Plan Assessment/Plan Invasive AdenoCA rectal, by C scope biospy findings Rectal bleed/rectal pain Circumferential wall thickening of the rectum. Perirectal lymph nodes. Left internal iliac lymph node. wall thickening of the descending colon and sigmoid colon. Additional areas of malignancy or colitis are possible. Plan: MRI of the pelvis for staging workup. Admit 2 mN Heme onc, radiation onc, general surgery following pt has no insurance, [facility] has declined to treat due to inability to pay for extensive treatment i suggest trying [facility] D/W PATIENT AND FRIEND BY PHONE QUAIL FARMER TODAY Vitals Vitals Vital Signs Date Time Temp Pulse Resp B/P (MAP) Pulse Ox O2 Delivery O2 Flow Rate FiO2 09/18/18 07:40 Room Air 09/18/18 07:00 97.7 67 18 96/62 (73) 99 97.7 Physical Exam General: Alert, Oriented X3, Cooperative, No acute distress Heart: Regular rate, Normal S1 Lungs: Clear Abdomen: Soft Extremities: No clubbing Skin: No rashes, No breakdown, No significant lesion Labs LABS MRI pelvis without and with contrast 09/17/2018 CLINICAL INDICATION: Rectal cancer staging. COMPARISON: CT abdomen and pelvis 09/15/2017 TECHNIQUE: Multisequence, multiplanar MR imaging of the pelvis is performed without and following the intravenous administration of 6 mL Gadavist gadolinium-based contrast material. FINDINGS: 1. Primary tumor: Morphology, location, and characteristics: Distance to the anal verge: 3.0 cm Distance to the top of sphincter complex/anorectal junction: The inferior margin of the tumor is at the level of the sphincter complex. Relationship to the anterior peritoneal reflection: Below Craniocaudal length: 4.3 cm Morphology: The inferior margin of the tumor which is just above the level of the anorectal junction is circumferential with a polyploid morphology, however the superior margin of the tumor is semicircumferential along the posterior one half of the mid rectum. Mucinous: No 2. T category: Extramural depth of invasion: There is diffuse loss of the T2 hypointense muscularis propria along the anterior one half of the tumor with a 0.7 cm of anterior extension beyond the muscularis propria most prominent at the 12:00 position seen on series 18/image 15 were extends to the posterior surface of the lower cervix without evidence of involvement. There is diffuse involvement of the muscularis propria along the left lateral aspect of the tumor best seen on the high-resolution coronal T2-weighted images series 20/image 10 and 11. MR T category:T3c Structures with possible invasion: Urinary bladder: None Ureters: None Uterus: None Cervix: The anterior margin of the tumor extends anteriorly to abut the posterior margin of the lower cervix without evidence of invasion Sacrum: Right sacral T2 hyperintensity with enhancement measuring 1.2 cm series 5/image 8, series 7/image 9. 4 low rectal tumors: Involvement of anal sphincters: The tumor extends to a level just above the sphincter complex 3. Extramural venous invasion: Equivocal 4. Circumferential resection margin: Less than 1 mm to the mesorectal fascia anteriorly where there is abutment of the posterior aspect of the lower cervix. 5. Mesorectal lymph nodes and tumor deposits: There are several highly suspicious superior rectal and mesorectal lymph nodes. There are clustered 3 superior rectal lymph nodes with a round morphology and internal heterogeneity measuring 0.9, 0.7 and 0.6 cm series 18/image 3, right left posterior mesorectal fascia lymph nodes which are suspicious due to morphology and internal heterogeneity measuring 0.5 and 0.6 cm series 18/image 5, left mesorectal fascial lymph node 0.9 cm with abnormal morphology and internal heterogeneity series 18/image 9. 6. Extra-mesorectal lymph nodes: There is a large morphologically abnormal left obturator lymph node measuring 1.7 x 2.2 cm series 18/image 12. IMPRESSION: 1. Low rectal tumor with significant extension through the muscularis propria consistent with stage T3c. 2. Multiple suspicious mesorectal, superior rectal and large left obturator lymphadenopathy consistent with liang metastatic disease. 3. Small right sacral enhancing lesion which does not have significant intrinsic T1 hypointensity and is equivocal for osseous metastasis. If further evaluation is clinically indicated, PET/CT is recommended for further evaluation. Electronically signed by: Laz Bill MD (09/18/2018 8:42 AM) [facility] Laboratory Tests Test 09/18/18 03:30 White Blood Count 5.7 x10^3/uL (4.0-11.0) Red Blood Count 4.49 x10^6/uL (3.50-5.40) Hemoglobin 12.9 g/dL (12.0-15.5) Hematocrit 38.7 % (36.0-47.0) Mean Corpuscular Volume 86 fL (79-100) Mean Corpuscular Hemoglobin 29 pg (25-35) Mean Corpuscular Hemoglobin Concent 34 g/dL (31-37) Red Cell Distribution Width 13.2 % (11.5-14.5) Platelet Count 192 x10^3/uL (140-400) Neutrophils (%) (Auto) 53 % (31-73) Lymphocytes (%) (Auto) 34 % (24-48) Monocytes (%) (Auto) 8 % (0-9) Eosinophils (%) (Auto) 4 % (0-3) Basophils (%) (Auto) 1 % (0-3) Neutrophils # (Auto) 3.1 x10^3uL (1.8-7.7) Lymphocytes # (Auto) 1.9 x10^3/uL (1.0-4.8) Monocytes # (Auto) 0.5 x10^3/uL (0.0-1.1) Eosinophils # (Auto) 0.2 x10^3/uL (0.0-0.7) Basophils # (Auto) 0.0 x10^3/uL (0.0-0.2) Sodium Level 142 mmol/L (136-145) Potassium Level 3.6 mmol/L (3.5-5.1) Chloride Level 106 mmol/L (98-107) Carbon Dioxide Level 27 mmol/L (21-32) Anion Gap 9 (6-14) Blood Urea Nitrogen 13 mg/dL (7-20) Creatinine 0.6 mg/dL (0.6-1.0) Estimated GFR (Cockcroft-Gault) 104.2 BUN/Creatinine Ratio 22 (6-20) Glucose Level 109 mg/dL (70-99) Calcium Level 9.0 mg/dL (8.5-10.1) Total Bilirubin 0.3 mg/dL (0.2-1.0) Aspartate Amino Transf (AST/SGOT) 24 U/L (15-37) Alanine Aminotransferase (ALT/SGPT) 32 U/L (14-59) Alkaline Phosphatase 85 U/L (46-116) Total Protein 7.2 g/dL (6.4-8.2) Albumin 3.1 g/dL (3.4-5.0) Albumin/Globulin Ratio 0.8 (1.0-1.7) Comment Review of Relevant I have reviewed the following items dinora (where applicable) has been applied. Labs Laboratory Tests Test 09/17/18 04:30 09/18/18 03:30 Urine Collection Type Unknown Urine Color Yellow Urine Clarity Clear Urine pH 6.5 Urine Specific [place] 1.010 Urine Protein Negative mg/dL (NEG-TRACE) Urine Glucose (UA) Negative mg/dL (NEG) Urine Ketones (Stick) Negative mg/dL (NEG) Urine Blood Negative (NEG) Urine Nitrite Negative (NEG) Urine Bilirubin Negative (NEG) Urine Urobilinogen Dipstick 0.2 mg/dL (0.2 mg/dL) Urine Leukocyte Esterase Small (NEG) Urine RBC 0 /HPF (0-2) Urine WBC 5-10 /HPF (0-4) Urine Squamous Epithelial Cells Occ /LPF Urine Bacteria Few /HPF (0-FEW) Urine Mucus Slight /LPF White Blood Count 5.7 x10^3/uL (4.0-11.0) Red Blood Count 4.49 x10^6/uL (3.50-5.40) Hemoglobin 12.9 g/dL (12.0-15.5) Hematocrit 38.7 % (36.0-47.0) Mean Corpuscular Volume 86 fL (79-100) Mean Corpuscular Hemoglobin 29 pg (25-35) Mean Corpuscular Hemoglobin Concent 34 g/dL (31-37) Red Cell Distribution Width 13.2 % (11.5-14.5) Platelet Count 192 x10^3/uL (140-400) Neutrophils (%) (Auto) 53 % (31-73) Lymphocytes (%) (Auto) 34 % (24-48) Monocytes (%) (Auto) 8 % (0-9) Eosinophils (%) (Auto) 4 % (0-3) Basophils (%) (Auto) 1 % (0-3) Neutrophils # (Auto) 3.1 x10^3uL (1.8-7.7) Lymphocytes # (Auto) 1.9 x10^3/uL (1.0-4.8) Monocytes # (Auto) 0.5 x10^3/uL (0.0-1.1) Eosinophils # (Auto) 0.2 x10^3/uL (0.0-0.7) Basophils # (Auto) 0.0 x10^3/uL (0.0-0.2) Sodium Level 142 mmol/L (136-145) Potassium Level 3.6 mmol/L (3.5-5.1) Chloride Level 106 mmol/L (98-107) Carbon Dioxide Level 27 mmol/L (21-32) Anion Gap 9 (6-14) Blood Urea Nitrogen 13 mg/dL (7-20) Creatinine 0.6 mg/dL (0.6-1.0) Estimated GFR (Cockcroft-Gault) 104.2 BUN/Creatinine Ratio 22 (6-20) Glucose Level 109 mg/dL (70-99) Calcium Level 9.0 mg/dL (8.5-10.1) Total Bilirubin 0.3 mg/dL (0.2-1.0) Aspartate Amino Transf (AST/SGOT) 24 U/L (15-37) Alanine Aminotransferase (ALT/SGPT) 32 U/L (14-59) Alkaline Phosphatase 85 U/L (46-116) Total Protein 7.2 g/dL (6.4-8.2) Albumin 3.1 g/dL (3.4-5.0) Albumin/Globulin Ratio 0.8 (1.0-1.7) Laboratory Tests Test 09/18/18 03:30 White Blood Count 5.7 x10^3/uL (4.0-11.0) Red Blood Count 4.49 x10^6/uL (3.50-5.40) Hemoglobin 12.9 g/dL (12.0-15.5) Hematocrit 38.7 % (36.0-47.0) Mean Corpuscular Volume 86 fL (79-100) Mean Corpuscular Hemoglobin 29 pg (25-35) Mean Corpuscular Hemoglobin Concent 34 g/dL (31-37) Red Cell Distribution Width 13.2 % (11.5-14.5) Platelet Count 192 x10^3/uL (140-400) Neutrophils (%) (Auto) 53 % (31-73) Lymphocytes (%) (Auto) 34 % (24-48) Monocytes (%) (Auto) 8 % (0-9) Eosinophils (%) (Auto) 4 % (0-3) Basophils (%) (Auto) 1 % (0-3) Neutrophils # (Auto) 3.1 x10^3uL (1.8-7.7) Lymphocytes # (Auto) 1.9 x10^3/uL (1.0-4.8) Monocytes # (Auto) 0.5 x10^3/uL (0.0-1.1) Eosinophils # (Auto) 0.2 x10^3/uL (0.0-0.7) Basophils # (Auto) 0.0 x10^3/uL (0.0-0.2) Sodium Level 142 mmol/L (136-145) Potassium Level 3.6 mmol/L (3.5-5.1) Chloride Level 106 mmol/L (98-107) Carbon Dioxide Level 27 mmol/L (21-32) Anion Gap 9 (6-14) Blood Urea Nitrogen 13 mg/dL (7-20) Creatinine 0.6 mg/dL (0.6-1.0) Estimated GFR (Cockcroft-Gault) 104.2 BUN/Creatinine Ratio 22 (6-20) Glucose Level 109 mg/dL (70-99) Calcium Level 9.0 mg/dL (8.5-10.1) Total Bilirubin 0.3 mg/dL (0.2-1.0) Aspartate Amino Transf (AST/SGOT) 24 U/L (15-37) Alanine Aminotransferase (ALT/SGPT) 32 U/L (14-59) Alkaline Phosphatase 85 U/L (46-116) Total Protein 7.2 g/dL (6.4-8.2) Albumin 3.1 g/dL (3.4-5.0) Albumin/Globulin Ratio 0.8 (1.0-1.7) Medications Current Medications Sodium Chloride 1,000 ml @ 1,000 mls/hr 1X ONCE IV Last administered on at 17:46; Start 09/15/18 at 17:15; Stop 09/15/18 at 18:14; Status DC Ondansetron HCl (Zofran) 4 mg 1X ONCE IV Last administered on 09/15/18at 17:48 ; Start 09/15/18 at 17:15; Stop 09/15/18 at 17:16; Status DC Morphine Sulfate (Morphine Sulfate) 4 mg 1X ONCE IV Last administered on at 17:49; Start 09/15/18 at 17:15; Stop 09/15/18 at 17:16; Status DC Ondansetron HCl (Zofran) 4 mg PRN Q8HRS PRN IV NAUSEA/VOMITING; Start 09/15/18 at 17:30; Stop 09/15/18 at 17:57; Status DC Morphine Sulfate (Morphine Sulfate) 4 mg PRN Q2HR PRN IV PAIN; Start 09/15/18 at 17:30; Stop 09/15/18 at 18:03; Status DC Ondansetron HCl (Zofran) 4 mg PRN Q6HRS PRN IV NAUSEA/VOMITING 1ST CHOICE; Start 09/15/18 at 17:30 Prochlorperazine Edisylate (Compazine) 10 mg PRN Q6HRS PRN IV NAUSEA/VOMITING 2ND CHOICE; Start 09/15/18 at 17:30 Prochlorperazine (Compazine) 25 mg PRN Q12HR PRN CO NAUSEA/VOMITING; Start at 17:30 Al Hydroxide/Mg Hydroxide (Mylanta Plus Xs) 30 ml PRN Q3HRS PRN PO HEARTBURN / GAS; Start 09/15/18 at 17:30 Calcium Carbonate/ Glycine (Tums) 500 mg PRN Q3HRS PRN PO UPSET STOMACH; Start 09/15/18 at 17:30 Zolpidem Tartrate (Ambien) 5 mg PRN QHS PRN PO INSOMNIA, MAY REPEAT IN 1HR Last administered on 09/17/18at 21:38; Start 09/15/18 at 17:30 Oxycodone HCl (Roxicodone) 5 mg PRN Q3HRS PRN PO PAIN; Start 09/15/18 at 17:30 Morphine Sulfate (Morphine Sulfate) 1 mg PRN Q1HR PRN IV PAIN SEVERE; Start at 17:30; Stop 09/15/18 at 18:04; Status DC Acetaminophen (Tylenol) 650 mg PRN Q6HRS PRN PO Headaches, Temp > 101.5F; Start 09/15/18 at 17:30 Senna/Docusate Sodium (Senna Plus) 1 tab BID PO Last administered on 09/18/18at 08:19; Start 09/15/18 at 21:00 Magnesium Hydroxide (Milk Of Magnesia) 2,400 mg PRN Q12HR PRN PO CONSTIPATION Last administered on 09/18/18at 08:18; Start 09/15/18 at 17:30 Iohexol (Omnipaque 300 Mg/ml) 75 ml 1X ONCE IV Last administered on 09/15/18at 18:28; Start 09/15/18 at 18:00; Stop 09/15/18 at 18:02; Status DC Info (CONTRAST GIVEN -- Rx MONITORING) 1 each PRN DAILY PRN MC SEE COMMENTS; Start 09/15/18 at 18:15; Stop 09/17/18 at 18:14; Status DC Morphine Sulfate (Morphine Sulfate) 1 mg PRN Q1HR PRN IV PAIN SEVERE; Start at 18:04 Gadobutrol (Gadavist) 6 mmol 1X ONCE IV Last administered on 09/17/18at 09:40; Start 09/17/18 at 09:30; Stop 09/17/18 at 09:31; Status DC Vitals/I & O Vital Sign - Last 24 Hours 09/17/18 09/17/18 09/17/18 09/17/18 11:00 15:50 19:00 19:45 Temp 98.5 98.2 98.2 98.5 98.2 98.2 Pulse 76 66 65 Resp 16 18 18 B/P (MAP) 101/69 (80) 98/65 (76) 99/61 (74) Pulse Ox 98 98 97 O2 Delivery Room Air Room Air Room Air Room Air 09/17/18 09/18/18 09/18/18 09/18/18 23:00 03:00 07:00 07:40 Temp 98.4 97.7 97.7 98.4 97.7 97.7 Pulse 65 53 67 Resp 18 18 18 B/P (MAP) 105/66 (79) 98/59 (72) 96/62 (73) Pulse Ox 98 100 99 O2 Delivery Room Air Room Air Room Air Room Air Intake and Output 09/17/18 09/17/18 09/18/18 15:01 23:01 07:01 Intake Total 640 ml Balance 640 ml DANIELA PICKENS MD Sep 18, 2018 10:34
[2018-09-18 11:00] VITALS: BP 112/70
--- NOTE | 2018-09-18 12:47 | NUR ---
CHELSEA following for discharge planning. Discussed with RN. CHELSEA met with pt and pt's Chris ([phone]) family is wanting to know about payment plans for this hospital stay and about the upcoming radiation and chemo therapy pt will need. Pt and pt's wanting to do the full treatment planned proposed by the doctors. Per , pt is not a permanent resident and does not have a green card, but does have an application pending since 2017. Pt's is not sure if pt will be able to get on his work insurance due to her status. Simon would like to speak to someone about setting up a payment plan, CHELSEA spoke with Ingrid Jack ([id number]) in registration about this. Ingrid advised payment plans are typically set up after the pt receives the bill. Ingrid is going to try to reach out to to discuss this. Simon also gave his email address if this is required ([email or web address]). Chris will be back to [facility] this evening after he finishes work around 1830/1900 to take pt home. RN notified. CHELSEA will continue to follow.
--- NOTE | 2018-09-18 12:52 | PDOC3 ---
Discharge Summary Date of Admission: Sep 15, 2018 Date of Discharge: Sep 18, 2018 Follow-Up: 1-2 days Admitting Diagnosis comment: DISCHARGE DX Assessment/Plan Invasive AdenoCA rectal, by C scope biospy findings Rectal bleed/rectal pain Circumferential wall thickening of the rectum. Perirectal lymph nodes. Left internal iliac lymph node. wall thickening of the descending colon and sigmoid colon. Additional areas of malignancy or colitis are possible. Plan: MRI of the pelvis NOTED for staging workup. Admit 2 mN Heme onc, radiation onc, general surgery following pt has no insurance, [facility] has declined to treat due to inability to pay for extensive treatment i suggest trying [facility] PATIENT AND FRIEND BY PHONE [employer] TODAY Vitals Vitals Vital Signs Date Time Temp Pulse Resp B/P (MAP) Pulse Ox O2 Delivery O2 Flow Rate FiO2 09/18/18 07:40 Room Air 09/18/18 07:00 97.7 67 18 96/62 (73) 99 97.7 Physical Exam General: Alert, Oriented X3, Cooperative, No acute distress Heart: Regular rate, Normal S1 Lungs: Clear Abdomen: Soft Extremities: No clubbing Skin: No rashes, No breakdown, No significant lesion Labs LABS MRI pelvis without and with contrast 09/17/2018 CLINICAL INDICATION: Rectal cancer staging. COMPARISON: CT abdomen and pelvis 09/15/2017 TECHNIQUE: Multisequence, multiplanar MR imaging of the pelvis is performed without and following the intravenous administration of 6 mL Gadavist gadolinium-based contrast material. FINDINGS: 1. Primary tumor: Morphology, location, and characteristics: Distance to the anal verge: 3.0 cm Distance to the top of sphincter complex/anorectal junction: The inferior margin of the tumor is at the level of the sphincter complex. Relationship to the anterior peritoneal reflection: Below Craniocaudal length: 4.3 cm Morphology: The inferior margin of the tumor which is just above the level of the anorectal junction is circumferential with a polyploid morphology, however the superior margin of the tumor is semicircumferential along the posterior one half of the mid rectum. Mucinous: No 2. T category: Extramural depth of invasion: There is diffuse loss of the T2 hypointense muscularis propria along the anterior one half of the tumor with a 0.7 cm of anterior extension beyond the muscularis propria most prominent at the 12:00 position seen on series 18/image 15 were extends to the posterior surface of the lower cervix without evidence of involvement. There is diffuse involvement of the muscularis propria along the left lateral aspect of the tumor best seen on the high-resolution coronal T2-weighted images series 20/image 10 and 11. MR T category:T3c Structures with possible invasion: Urinary bladder: None Ureters: None Uterus: None Cervix: The anterior margin of the tumor extends anteriorly to abut the posterior margin of the lower cervix without evidence of invasion Sacrum: Right sacral T2 hyperintensity with enhancement measuring 1.2 cm series 5/image 8, series 7/image 9. 4 low rectal tumors: Involvement of anal sphincters: The tumor extends to a level just above the sphincter complex 3. Extramural venous invasion: Equivocal 4. Circumferential resection margin: Less than 1 mm to the mesorectal fascia anteriorly where there is abutment of the posterior aspect of the lower cervix. 5. Mesorectal lymph nodes and tumor deposits: There are several highly suspicious superior rectal and mesorectal lymph nodes. There are clustered 3 superior rectal lymph nodes with a round morphology and internal heterogeneity measuring 0.9, 0.7 and 0.6 cm series 18/image 3, right left posterior mesorectal fascia lymph nodes which are suspicious due to morphology and internal heterogeneity measuring 0.5 and 0.6 cm series 18/image 5, left mesorectal fascial lymph node 0.9 cm with abnormal morphology and internal heterogeneity series 18/image 9. 6. Extra-mesorectal lymph nodes: There is a large morphologically abnormal left obturator lymph node measuring 1.7 x 2.2 cm series 18/image 12. IMPRESSION: 1. Low rectal tumor with significant extension through the muscularis propria consistent with stage T3c. 2. Multiple suspicious mesorectal, superior rectal and large left obturator lymphadenopathy consistent with liang metastatic disease. 3. Small right sacral enhancing lesion which does not have significant intrinsic T1 hypointensity and is equivocal for osseous metastasis. If further evaluation is clinically indicated, PET/CT is recommended for further evaluation. Electronically signed by: Laz Bill MD (09/18/2018 8:42 AM) [facility] Brief Hospital Course Ms. Boyd is a 53 old [sex] who presented with [ ] CONDITION AT DISCHARGE: Comment (GUARDED PROGNOSIS WITHOUT TREATMENT) Discharge Medications Current Medications Sodium Chloride 1,000 ml @ 1,000 mls/hr 1X ONCE IV Last administered on at 17:46; Start 09/15/18 at 17:15; Stop 09/15/18 at 18:14; Status DC Ondansetron HCl (Zofran) 4 mg 1X ONCE IV Last administered on 09/15/18at 17:48 ; Start 09/15/18 at 17:15; Stop 09/15/18 at 17:16; Status DC Morphine Sulfate (Morphine Sulfate) 4 mg 1X ONCE IV Last administered on at 17:49; Start 09/15/18 at 17:15; Stop 09/15/18 at 17:16; Status DC Ondansetron HCl (Zofran) 4 mg PRN Q8HRS PRN IV NAUSEA/VOMITING; Start 09/15/18 at 17:30; Stop 09/15/18 at 17:57; Status DC Morphine Sulfate (Morphine Sulfate) 4 mg PRN Q2HR PRN IV PAIN; Start 09/15/18 at 17:30; Stop 09/15/18 at 18:03; Status DC Ondansetron HCl (Zofran) 4 mg PRN Q6HRS PRN IV NAUSEA/VOMITING 1ST CHOICE; Start 09/15/18 at 17:30 Prochlorperazine Edisylate (Compazine) 10 mg PRN Q6HRS PRN IV NAUSEA/VOMITING 2ND CHOICE; Start 09/15/18 at 17:30 Prochlorperazine (Compazine) 25 mg PRN Q12HR PRN OR NAUSEA/VOMITING; Start at 17:30 Al Hydroxide/Mg Hydroxide (Mylanta Plus Xs) 30 ml PRN Q3HRS PRN PO HEARTBURN / GAS; Start 09/15/18 at 17:30 Calcium Carbonate/ Glycine (Tums) 500 mg PRN Q3HRS PRN PO UPSET STOMACH; Start 09/15/18 at 17:30 Zolpidem Tartrate (Ambien) 5 mg PRN QHS PRN PO INSOMNIA, MAY REPEAT IN 1HR Last administered on 09/17/18at 21:38; Start 09/15/18 at 17:30 Oxycodone HCl (Roxicodone) 5 mg PRN Q3HRS PRN PO PAIN; Start 09/15/18 at 17:30 Morphine Sulfate (Morphine Sulfate) 1 mg PRN Q1HR PRN IV PAIN SEVERE; Start at 17:30; Stop 09/15/18 at 18:04; Status DC Acetaminophen (Tylenol) 650 mg PRN Q6HRS PRN PO Headaches, Temp > 101.5F; Start 09/15/18 at 17:30 Senna/Docusate Sodium (Senna Plus) 1 tab BID PO Last administered on 09/18/18at 08:19; Start 09/15/18 at 21:00 Magnesium Hydroxide (Milk Of Magnesia) 2,400 mg PRN Q12HR PRN PO CONSTIPATION Last administered on 09/18/18at 08:18; Start 09/15/18 at 17:30 Iohexol (Omnipaque 300 Mg/ml) 75 ml 1X ONCE IV Last administered on 09/15/18at 18:28; Start 09/15/18 at 18:00; Stop 09/15/18 at 18:02; Status DC Info (CONTRAST GIVEN -- Rx MONITORING) 1 each PRN DAILY PRN MC SEE COMMENTS; Start 09/15/18 at 18:15; Stop 09/17/18 at 18:14; Status DC Morphine Sulfate (Morphine Sulfate) 1 mg PRN Q1HR PRN IV PAIN SEVERE; Start at 18:04 Gadobutrol (Gadavist) 6 mmol 1X ONCE IV Last administered on 09/17/18at 09:40; Start 09/17/18 at 09:30; Stop 09/17/18 at 09:31; Status DC Vital Signs Vital Signs Date Time Temp Pulse Resp B/P (MAP) Pulse Ox O2 Delivery O2 Flow Rate FiO2 09/18/18 11:00 98.0 68 18 112/70 (84) 98 Room Air 98.0 Labs Laboratory Tests Test 09/17/18 04:30 09/18/18 03:30 Urine Collection Type Unknown Urine Color Yellow Urine Clarity Clear Urine pH 6.5 Urine Specific [place] 1.010 Urine Protein Negative mg/dL (NEG-TRACE) Urine Glucose (UA) Negative mg/dL (NEG) Urine Ketones (Stick) Negative mg/dL (NEG) Urine Blood Negative (NEG) Urine Nitrite Negative (NEG) Urine Bilirubin Negative (NEG) Urine Urobilinogen Dipstick 0.2 mg/dL (0.2 mg/dL) Urine Leukocyte Esterase Small (NEG) Urine RBC 0 /HPF (0-2) Urine WBC 5-10 /HPF (0-4) Urine Squamous Epithelial Cells Occ /LPF Urine Bacteria Few /HPF (0-FEW) Urine Mucus Slight /LPF White Blood Count 5.7 x10^3/uL (4.0-11.0) Red Blood Count 4.49 x10^6/uL (3.50-5.40) Hemoglobin 12.9 g/dL (12.0-15.5) Hematocrit 38.7 % (36.0-47.0) Mean Corpuscular Volume 86 fL (79-100) Mean Corpuscular Hemoglobin 29 pg (25-35) Mean Corpuscular Hemoglobin Concent 34 g/dL (31-37) Red Cell Distribution Width 13.2 % (11.5-14.5) Platelet Count 192 x10^3/uL (140-400) Neutrophils (%) (Auto) 53 % (31-73) Lymphocytes (%) (Auto) 34 % (24-48) Monocytes (%) (Auto) 8 % (0-9) Eosinophils (%) (Auto) 4 % (0-3) Basophils (%) (Auto) 1 % (0-3) Neutrophils # (Auto) 3.1 x10^3uL (1.8-7.7) Lymphocytes # (Auto) 1.9 x10^3/uL (1.0-4.8) Monocytes # (Auto) 0.5 x10^3/uL (0.0-1.1) Eosinophils # (Auto) 0.2 x10^3/uL (0.0-0.7) Basophils # (Auto) 0.0 x10^3/uL (0.0-0.2) Sodium Level 142 mmol/L (136-145) Potassium Level 3.6 mmol/L (3.5-5.1) Chloride Level 106 mmol/L (98-107) Carbon Dioxide Level 27 mmol/L (21-32) Anion Gap 9 (6-14) Blood Urea Nitrogen 13 mg/dL (7-20) Creatinine 0.6 mg/dL (0.6-1.0) Estimated GFR (Cockcroft-Gault) 104.2 BUN/Creatinine Ratio 22 (6-20) Glucose Level 109 mg/dL (70-99) Calcium Level 9.0 mg/dL (8.5-10.1) Total Bilirubin 0.3 mg/dL (0.2-1.0) Aspartate Amino Transf (AST/SGOT) 24 U/L (15-37) Alanine Aminotransferase (ALT/SGPT) 32 U/L (14-59) Alkaline Phosphatase 85 U/L (46-116) Total Protein 7.2 g/dL (6.4-8.2) Albumin 3.1 g/dL (3.4-5.0) Albumin/Globulin Ratio 0.8 (1.0-1.7) Laboratory Tests Test 09/18/18 03:30 White Blood Count 5.7 x10^3/uL (4.0-11.0) Red Blood Count 4.49 x10^6/uL (3.50-5.40) Hemoglobin 12.9 g/dL (12.0-15.5) Hematocrit 38.7 % (36.0-47.0) Mean Corpuscular Volume 86 fL (79-100) Mean Corpuscular Hemoglobin 29 pg (25-35) Mean Corpuscular Hemoglobin Concent 34 g/dL (31-37) Red Cell Distribution Width 13.2 % (11.5-14.5) Platelet Count 192 x10^3/uL (140-400) Neutrophils (%) (Auto) 53 % (31-73) Lymphocytes (%) (Auto) 34 % (24-48) Monocytes (%) (Auto) 8 % (0-9) Eosinophils (%) (Auto) 4 % (0-3) Basophils (%) (Auto) 1 % (0-3) Neutrophils # (Auto) 3.1 x10^3uL (1.8-7.7) Lymphocytes # (Auto) 1.9 x10^3/uL (1.0-4.8) Monocytes # (Auto) 0.5 x10^3/uL (0.0-1.1) Eosinophils # (Auto) 0.2 x10^3/uL (0.0-0.7) Basophils # (Auto) 0.0 x10^3/uL (0.0-0.2) Sodium Level 142 mmol/L (136-145) Potassium Level 3.6 mmol/L (3.5-5.1) Chloride Level 106 mmol/L (98-107) Carbon Dioxide Level 27 mmol/L (21-32) Anion Gap 9 (6-14) Blood Urea Nitrogen 13 mg/dL (7-20) Creatinine 0.6 mg/dL (0.6-1.0) Estimated GFR (Cockcroft-Gault) 104.2 BUN/Creatinine Ratio 22 (6-20) Glucose Level 109 mg/dL (70-99) Calcium Level 9.0 mg/dL (8.5-10.1) Total Bilirubin 0.3 mg/dL (0.2-1.0) Aspartate Amino Transf (AST/SGOT) 24 U/L (15-37) Alanine Aminotransferase (ALT/SGPT) 32 U/L (14-59) Alkaline Phosphatase 85 U/L (46-116) Total Protein 7.2 g/dL (6.4-8.2) Albumin 3.1 g/dL (3.4-5.0) Albumin/Globulin Ratio 0.8 (1.0-1.7) Allergies Allergies Coded Allergies Type Severity Reaction Last Updated Verified No Known Drug Allergies 09/15/18 No Disposition/Orders: D/C to Home Patient Instructions D/C PLANNING 37 MIN DANIELA PICKENS MD Sep 18, 2018 12:52
--- NOTE | 2018-09-18 12:54 | DISCH ---
DISCHARGE INSTRUCTIONS Condition on Discharge Condition on Discharge: Guarded Activity After Discharge Activity Instructions for Disc: Resume previous activity Driving Instructions after Dis: Do not drive Diet after Discharge Diet after Discharge: GI Soft Checks after Discharge Checks after discharge: Check blood press - daily Contacting the DRJose G after DC Call your doctor for: [facility] DANIELA PICKENS MD Sep 18, 2018 12:54
[2018-09-18] MEDS ORDERED: PROC25SU21 PR (12:58)
[2018-09-18] MEDS ORDERED: SENN-22 PO (12:58)
[2018-09-18] MEDS ORDERED: OXYC5TAB4 PO (12:58)
[2018-09-18 15:00] VITALS: BP 95/63
--- NOTE | 2018-09-18 20:20 | NUR ---
Pt discharged at 2019, ambulated to hospital entrance accompanied by spouse. Spouse and Pt expressed their disappointment and frustration with the fact that Pt cannot receive treatment. This nurse explained to Pt's spouse that, according to Dr Wilson, it was necessary for Pt to have a payment plan set up prior to beginning treatment. Pt provided with phone numbers for the hospital in order to seek assistance with payment options, also provided with phone numbers for Dr Wilson and Dr Diez once a payment plan is established. Pt had one BM today, with slight amount of blood. No other changes from previous assessment.
[2019-01-09] MEDS ORDERED: HYDR-2761 PO (13:51)
[2019-01-09] MEDS ORDERED: NA P133E6 RC (13:53)
== END 2018-09-18 20:20 | disposition home or self-care (01) | DRG 376 ==
LOC: ER 16:08 → 4 NORTH 18:38
PROVIDERS: ADMIT Internal Medicine; ATTEND Internal Medicine
DX: C20 Malignant neoplasm of rectum (principal); Z86.010 Personal history of colon polyps
CPT/HCPCS: 36415; 71260; 72197; 74177; 80053; 81001; 82378; 85025; 85610; 86850; 86870; 86900; 86901; 87086; 96361; 96374; 96375; A9585; J2270; J2405; J7030; Q9967; 99285-25; G0378

== ENCOUNTER → 2018-12-13 | Outpatient (CLI) | payer SELFPAY ==
[~2018-12-13] MED LIST: HYDR-2761 PO; IOHEXOL 240 MG/ML 50ML VIAL. PO ONE; IOHEXOL 300 MG/ML 100ML VIAL. IV ONE; NA P133E6 RC; OXYC5TAB4 PO; PROC25SU21 PR; SENN-22 PO
--- NOTE | 2018-12-13 11:02 | RAD ---
CT ABD PELV W/ORAL IV CONTRAST Indication: RECTAL CA INJ 75ML OMNI 300 PREV SENT Exposure: One or more of the following individualized dose reduction techniques were utilized for this examination: 1. Automated exposure control 2. Adjustment of the mA and/or kV according to patient size 3. Use of iterative reconstruction technique. Technique: Intravenous contrast was given. Oral contrast was given. Comparison with September 15, 2018. FINDINGS: Lung bases are clear. Liver and spleen are unremarkable. Pancreas unremarkable. No adrenal mass. Kidneys demonstrate symmetric enhancement without focal lesion or hydronephrosis. Tiny nonobstructive right lower pole renal calculus also seen on the prior study. Aorta is nonaneurysmal with mild calcification. No calcified gallstone. Small perirectal nodules or lymph nodes are again identified and appears similar. Soft tissue mass or lymph node in the left iliac region is unchanged, measures about 2.5 cm. No significant small bowel distention. Wall thickening of the rectum and sigmoid colon is again identified, appears greater than on the prior study. There is also mild increased density and stranding within the perirectal fat particularly posteriorly along the anterior sacrum. Mild wall thickening of the descending colon is again identified, similar to slightly worse. Partially distended urinary bladder demonstrates no definite abnormality. No evidence of ascites or pneumoperitoneum. Mild degenerative changes of the spine, appearance and alignment are similar. No destructive bone lesion. IMPRESSION: 1. Wall thickening of the rectum and distal colon, overall slightly greater than on the prior study. Possibilities include progressive malignant disease and/or colitis. Consider colonoscopy for further evaluation. 2. Small nodules or lymph nodes in the perirectal region and left iliac region are stable. Electronically signed by: Dwayne Rice MD (12/13/2018 10:59 AM) [id number]
== END | disposition home or self-care (01) ==
LOC: CT 08:46
PROVIDERS: ATTEND Radiology Radiation Oncology
DX: C20 Malignant neoplasm of rectum (principal); M47.819 Spondylosis without myelopathy or radiculopathy, site unspecified
CPT/HCPCS: 74177; Q9966; Q9967

== ENCOUNTER 2019-01-16 09:04 | Inpatient (IN) | payer BC ==
[2019-01-16] VITALS (8 sets, daily range): BP systolic 100–122; BP diastolic 53–69
[~2019-01-16] VITALS: Ht 165.1 cm; Wt 68.0 kg
[~2019-01-16 09:04] MED LIST changes: +HYDROmorphone 2 MG/ML VIAL IV PRN; -IOHEXOL 240 MG/ML 50ML VIAL. PO ONE; -IOHEXOL 300 MG/ML 100ML VIAL. IV ONE; +IV RINGERS,LACTATED 1000ML 1,000 ML IV SCH; +MORPHINE SULFATE 2 MG/ML VIAL. IV PRN; +ONDANSETRON PF 4 MG/2 ML VIAL. IV PRN; +PROCHLORPERAZINE 10 MG/2 ML VIAL. IV PRN; +fentaNYL PF VIAL 100 MCG/2 ML VIAL IV PRN
[2019-01-16] MEDS ORDERED: BUPIVAC MPF-EPI 0.5%-1:200000 30 ML VIAL. ONE ×2 (09:23→13:15)
[2019-01-16] MEDS ORDERED: LIDOCAINE 2% PF 5 ML VIAL. ONE (09:27)
[2019-01-16] MEDS ORDERED: PROPOFOL 20 ML IV ONE (09:27)
[2019-01-16] MEDS ORDERED: PROPOFOL 0 ML IV ONE (09:27)
[2019-01-16] MEDS ORDERED: fentaNYL PF VIAL 100 MCG/2 ML VIAL ONE ×2 (09:28→14:56)
[2019-01-16] MEDS ORDERED: ROCURONIUM 50 MG/5 ML VIAL. ONE ×2 (09:28→12:09)
[2019-01-16] MEDS ORDERED: DEXAMETHASONE SOD PHOS 4 MG/ML VIAL ONE (09:28)
[2019-01-16] MEDS ORDERED: ONDANSETRON PF 4 MG/2 ML VIAL. ONE (09:28)
[2019-01-16] MEDS: cefOXitin SODIUM IV Push 1 GM VIAL. IVP PRN ×2 (10:57→12:57)
[2019-01-16] MEDS ORDERED: SEVOFLURANE > 120 MINUTES. IH ONE (11:20)
[2019-01-16] MEDS ORDERED: ePHEDrine PF IN SALINE 50 MG/10 ML SYRINGE. IV ONE (11:20)
--- NOTE | 2019-01-16 11:43 | PDOC4 ---
OPERATIVE NOTE Date: Date: January 16, 2019 Pre-Op Diagnosis: rectal cancer Post-Op Diagnosis: same Procedure Performed: cysto, bl stents simple cath placement Surgeon: Anesthesia Type: ga Blood Loss: 0ml Specimans Obtained: none Findings: nl bladder, UOs. Complications: none Operative Note: Prepped and draped in usual fashion. SCD attached, time out performed, iv abx administered. 21fr rigid cystoscope placed, left uo seen and cannulated with 5fr cath all way into the kidney. Scope was removed and right side was stented in similar fashion. 16fr mayers was placed and stent taped with steri-strips to cath. Both stents were threaded into cath and into tubing. 10ml in balloon, care was handed over to GS colleague. DEIRDRE MCCLENDON MD January 16, 2019 11:43
[2019-01-16] MEDS ORDERED: cefOXitin SODIUM IV Push 1 GM VIAL. IVP ONE (11:56)
[2019-01-16] MEDS ORDERED: GLYCOPYRROLATE 1 MG/5 ML VIAL. ONE (12:00)
[2019-01-16] MEDS ORDERED: KETAMINE HCL IN NACL, ISO-OSM 50 MG/5 ML SYRINGE ONE (13:34)
[2019-01-16] MEDS ORDERED: HYDROmorphone 2 MG/ML VIAL ONE (13:35)
[2019-01-16] MEDS ORDERED: NEOSTIGMINE METHYLSULFATE 5 MG/5 ML SYRINGE. ONE (13:39)
--- NOTE | 2019-01-16 14:54 | RAD ---
KUB without comparison for postop, status post rigid proctoscopy, one drain left in, and vaginal packing was performed. FINDINGS: There is scattered abdominal bowel gas in a nonobstructive pattern. A pelvic drain is present. Gauze packing is seen at the inferior midline of the film. No significant osseous abnormalities. IMPRESSION: 1. Nonobstructive nonspecific bowel gas pattern with postsurgical changes in the pelvis. Electronically signed by: Min Rios MD (01/16/2019 2:51 PM) [id number]
[2019-01-16] MEDS ORDERED: ONDANSETRON PF 4 MG/2 ML VIAL. IV PRN (15:00)
[2019-01-16] MEDS ORDERED: 0.9 % SODIUM CHLORIDE 10 ML DISP.SYRIN. IV PRN (15:00)
--- NOTE | 2019-01-16 15:03 | PDOC ---
BRIEF OPERATIVE NOTE Date: January 16, 2019 Pre-Op Diagnosis rectal carcinoma Post-Op Diagnosis same Procedure Performed rigid procto A/P resection bilateral oophorectomy appendectomy Surgeon Adam Fashion Design Professor Jennifer Parmar, Juanita RODRIGUEZ Anesthesia Type: General Blood Loss 250cc IV Fluid 1500cc Urine Output 60cc Specimens Obtained rectosigmoid bilateral ovaries appendix Findings rectal mass near anal verge, palpable mesorectal LN, Complications none VIOLET LAZO MD January 16, 2019 15:03
[2019-01-16] MEDS: fentaNYL PF VIAL 100 MCG/2 ML VIAL IV PRN ×2 (15:07→15:40)
[2019-01-16] MEDS: HYDROmorphone 12mg/30ml PCA 30 ML IV PRN (15:51)
[2019-01-16] MEDS: POTASSIUM CL 20MEQ-0.45% NACL 1,000 ML IV SCH (16:28)
--- NOTE | 2019-01-16 20:45 | OP ---
DATE OF SURGERY: 01/16/2019 PREOPERATIVE DIAGNOSIS: Rectal carcinoma. POSTOPERATIVE DIAGNOSIS: Rectal carcinoma. PROCEDURE: 1. Rigid proctoscopy. 2. AP resection. 3. Bilateral oophorectomy. 4. Appendectomy. SURGEON: Keenan Lazo MD. TALENT DEVELOPMENT MANAGER: Dr. Garcia; VEGA Mercado; MICHAEL Kelsey. ANESTHESIA: General endotracheal. ESTIMATED BLOOD LOSS: 250 mL. INTRAVENOUS FLUIDS: 1500 mL. URINE OUTPUT: 60 mL. INDICATIONS: The patient is a 53-year-old with biopsy proven carcinoma of the rectum who has received some preoperative radiation therapy. She was unable to have neoadjuvant chemotherapy due to insurance issues. OPERATIVE FINDINGS: The liver was smooth and sharp. The small bowel run from ligament of Treitz to ileocecal valve without abnormality. The uterus, tubes and ovaries were atrophic consistent with the patient's age. The tumor mass resided just inside the anal orifice. DESCRIPTION OF PROCEDURE: The patient brought to the operating suite, given a general endotracheal anesthetic, placed in the dorsal lithotomy position. Cystoscopy with placement of ureteral stents was performed and was dictated by Dr. Devine. Digital rectal exam revealed the tumor to be low lying just inside the anal verge. Limited rigid proctoscopy confirmed this. The abdomen and perineal area were prepped and draped in usual sterile fashion after closing the anus with a pursestring suture of 2-0 silk. An old midline lower abdominal scar was excised. Abdomen carefully entered and explored with results as noted above. With the Omni self-retaining retractor for exposure, we set about mobilizing the distal sigmoid colon off the lateral pelvic wall by taking down the white line of Toldt. Ureters identified and preserved. Bowel was transected with a FRANK stapler and dissection carried down to the entrance of the sacral vault. The bowel and mesentery was swept off the sacrum and lateral attachments were taken down with the LigaSure. A circumanal incision was then made and the distal rectum freed and specimen delivered. Involvement of the posterior vaginal wall by the tumor process resulted in a defect in the vaginal wall. This was closed with a running stitch of 2-0 Vicryl suture. Bilateral oophorectomy carried out with LigaSure and ligation of pelvic vessels. Appendectomy performed with the FRANK stapler. The pelvis was irrigated with sterile water and checked for hemostasis. When present and a correct sponge count was obtained, the pelvic peritoneum was closed to prevent migration of bowel into the pelvis postoperatively. The perineal incision was closed in layers with Vicryl sutures after placement of the 19-Panamanian round Zachariah drain. End colostomy brought out the left side of the abdomen. Perineal incision closed with interrupted Prolene sutures. When a correct sponge count was obtained, the abdomen was closed in running fashion using looped 0 PDS tied in the middle. SubQ approximated with 3-0 Vicryl, skin closed with a subcuticular 4-0 Monocryl. Colostomy matured with 3-0 chromic and appliance placed. Sterile dressings placed. Postop foreign body film was negative for unexplained foreign body. The patient awakened from her anesthetic and taken to the recovery room in satisfactory condition. KEENAN LAZO MD DR: YUE/aj JOB#: [id number] / [id number]
[2019-01-17] VITALS (7 sets, daily range): BP systolic 101–113; BP diastolic 52–63
[2019-01-17] MEDS: POTASSIUM CL 20MEQ-0.45% NACL 1,000 ML IV SCH ×3 (06:24→17:42)
[2019-01-17] MEDS: ENOXAPARIN 40 MG/0.4 ML SYRINGE. SQ SCH (08:18)
[2019-01-17 08:48] LABS: BASO % 0 % (0-3); EOS % 0 % (0-3); HEMATOCRIT 36.2 % (36.0-47.0); HEMOGLOBIN 12.4 g/dL (12.0-15.5); LYMPH # 0.6 x10^3/uL (1.0-4.8); LYMPH % 7 % (24-48); MEAN CORPUSCULAR HEMOGLOBIN 31 pg (25-35); MEAN CORPUSCULAR HGB CONC 34 g/dL (31-37); MEAN CORPUSCULAR VOLUME 89 fL (79-100); MONO # 0.7 x10^3/uL (0.0-1.1); MONO % 8 % (0-9); NEUT # 8.2 x10^3uL (1.8-7.7); NEUT % 86 % (31-73); PLATELET COUNT 195 x10^3/uL (140-400); RED BLOOD COUNT 4.08 x10^6/uL (3.50-5.40); RED CELL DISTRIBUTION WIDTH 12.7 % (11.5-14.5); WHITE BLOOD COUNT 9.6 x10^3/uL (4.0-11.0)
--- NOTE | 2019-01-17 09:01 | PDOC ---
CHELSIE BOURNE APRN 01/17/19 0901: SURGICAL PROGRESS NOTE Subjective pain at 8 no emesis Vital Signs Vital Signs Date Time Temp Pulse Resp B/P (MAP) Pulse Ox O2 Delivery O2 Flow Rate FiO2 01/17/19 07:00 99.1 69 16 102/58 (73) 97 Room Air 99.1 01/17/19 03:00 2.0 I&O Intake and Output 01/17/19 07:00 Intake Total 1600 ml Output Total 990 ml Balance 610 ml Intake Oral 0 ml IV Total 1600 ml Output Urine Total 450 ml Drainage Total 290 ml Estimated Blood Loss 250 ml PATIENT HAS A PEREZ: Yes General: Alert, Cooperative, No acute distress Abdomen: Soft, Other (dressing dry, stoma pink, zoie serosang) Assessment/Plan s/p AP resection await bowel function start some gradual activity today VIOLET LAZO MD 01/17/19 0941: SURGICAL PROGRESS NOTE Assessment/Plan pt seen friend and in room adequate pain control would like room temp water start po slowly out of bed CHELSIE BOURNE APRN January 17, 2019 09:01 VIOLET LAZO MD January 17, 2019 09:41
[2019-01-17 09:07] LABS: CALCIUM 8.2 mg/dL (8.5-10.1); CREATININE 0.7 mg/dL (0.6-1.0); GFR 86.9; POTASSIUM 3.8 mmol/L (3.5-5.1)
[2019-01-17 11:23] LABS: % BANDS 1 % (0-9); % LYMPHS 7 % (24-48); % MONOS 6 % (0-10); % SEGS 86 % (35-66); PLT ESTIMATE ADEQUATE (ADEQUATE)
--- NOTE | 2019-01-17 13:24 | NUR ---
SW following for discharge planning. Discussed with RN, pt had surgery yesterday, new ostomy, wound care. Pt will need home health upon discharge at least. SW will continue to follow.
[2019-01-18] VITALS (16 sets, daily range): BP systolic 73–124; BP diastolic 25–67
[2019-01-18] MEDS: POTASSIUM CL 20MEQ-0.45% NACL 1,000 ML IV SCH ×2 (05:26→15:02)
--- NOTE | 2019-01-18 08:51 | PDOC ---
CHELSIE BOURNE SLAB INSPECTOR 01/18/19 0851: SURGICAL PROGRESS NOTE Subjective d/w nurse--low BP when attempted to ambulate yesterday, had been on bedrest, perez left in place pain managed no emesis, + gas pains Vital Signs Vital Signs Date Time Temp Pulse Resp B/P (MAP) Pulse Ox O2 Delivery O2 Flow Rate FiO2 01/18/19 07:00 98.1 70 16 99/62 (74) 100 Room Air 98.1 I&O Intake and Output 01/18/19 07:00 Intake Total 2030 ml Output Total 2280 ml Balance -250 ml Intake Oral 30 ml IV Total 2000 ml Output Urine Total 1950 ml Drainage Total 330 ml PATIENT HAS A PEREZ: Yes (dc today) General: Alert, Oriented X3, Cooperative, No acute distress Abdomen: Soft, Other (stoma pink, zoie serosang) Labs Laboratory Tests Test 01/17/19 08:17 White Blood Count 9.6 x10^3/uL (4.0-11.0) Red Blood Count 4.08 x10^6/uL (3.50-5.40) Hemoglobin 12.4 g/dL (12.0-15.5) Hematocrit 36.2 % (36.0-47.0) Mean Corpuscular Volume 89 fL (79-100) Mean Corpuscular Hemoglobin 31 pg (25-35) Mean Corpuscular Hemoglobin Concent 34 g/dL (31-37) Red Cell Distribution Width 12.7 % (11.5-14.5) Platelet Count 195 x10^3/uL (140-400) Neutrophils (%) (Auto) 86 % (31-73) Lymphocytes (%) (Auto) 7 % (24-48) Monocytes (%) (Auto) 8 % (0-9) Eosinophils (%) (Auto) 0 % (0-3) Basophils (%) (Auto) 0 % (0-3) Neutrophils # (Auto) 8.2 x10^3uL (1.8-7.7) Lymphocytes # (Auto) 0.6 x10^3/uL (1.0-4.8) Monocytes # (Auto) 0.7 x10^3/uL (0.0-1.1) Eosinophils # (Auto) 0.0 x10^3/uL (0.0-0.7) Basophils # (Auto) 0.0 x10^3/uL (0.0-0.2) Segmented Neutrophils % 86 % (35-66) Band Neutrophils % 1 % (0-9) Lymphocytes % 7 % (24-48) Monocytes % 6 % (0-10) Platelet Estimate Adequate (ADEQUATE) Sodium Level 141 mmol/L (136-145) Potassium Level 3.8 mmol/L (3.5-5.1) Chloride Level 105 mmol/L (98-107) Carbon Dioxide Level 27 mmol/L (21-32) Anion Gap 9 (6-14) Blood Urea Nitrogen 15 mg/dL (7-20) Creatinine 0.7 mg/dL (0.6-1.0) Estimated GFR (Cockcroft-Gault) 86.9 Glucose Level 126 mg/dL (70-99) Calcium Level 8.2 mg/dL (8.5-10.1) Assessment/Plan s/p AP resection check labs check orthostatics, if improved start activity today VIOLET Bruce MD 01/18/19 1149: SURGICAL PROGRESS NOTE Assessment/Plan pt seen awake, alert two bilingual friends in room who translate has been hypotensive with sitting at bedside no nausea has flatus in bag will start clears CBC just drawn Dr Randle to follow over the weekend CHELSIE BOURNE APRN January 18, 2019 08:51 VIOLET LAZO MD January 18, 2019 11:49
[2019-01-18] MEDS: ENOXAPARIN 40 MG/0.4 ML SYRINGE. SQ SCH (09:09)
--- NOTE | 2019-01-18 09:38 | NUR ---
eleni hutchinson removed all of pt vaginal packing at this time. will continue to monitor.
[2019-01-18 11:55] LABS: BASO % 0 % (0-3); EOS % 0 % (0-3); HEMATOCRIT 34.2 % (36.0-47.0); HEMOGLOBIN 11.5 g/dL (12.0-15.5); LYMPH # 0.6 x10^3/uL (1.0-4.8); LYMPH % 8 % (24-48); MEAN CORPUSCULAR HEMOGLOBIN 30 pg (25-35); MEAN CORPUSCULAR HGB CONC 34 g/dL (31-37); MEAN CORPUSCULAR VOLUME 88 fL (79-100); MONO # 0.5 x10^3/uL (0.0-1.1); MONO % 6 % (0-9); NEUT # 6.1 x10^3uL (1.8-7.7); NEUT % 85 % (31-73); PLATELET COUNT 164 x10^3/uL (140-400); RED CELL DISTRIBUTION WIDTH 12.2 % (11.5-14.5); WHITE BLOOD COUNT 7.2 x10^3/uL (4.0-11.0)
[2019-01-18 12:14] LABS: CALCIUM 8.1 mg/dL (8.5-10.1); CREATININE 0.5 mg/dL (0.6-1.0); GFR 128.1; POTASSIUM 3.6 mmol/L (3.5-5.1)
--- NOTE | 2019-01-18 13:30 | NUR ---
ostomy care ostomy teaching set up for Monday01/21/2019 at 1:00.
--- NOTE | 2019-01-18 14:37 | NUR ---
SW following for discharge planning. Discussed with RN, pt is not doing too well today, and is having difficulty getting up. PT/OT recommending acute rehab. RN reported pt will be here through the weekend. SW will continue to follow and will meet with pt and pt's family on Monday (01/21/19) to discuss placement options.
--- NOTE | 2019-01-18 20:00 | NUR ---
RN stripped the SAIGE drain tubing. RN will continue to monitor.
--- NOTE | 2019-01-18 23:00 | NUR ---
Pt refused to have orthostatic vitals done at this time. RN will continue to monitor patient.
--- NOTE | 2019-01-18 23:59 | NUR ---
RN stripped the SAIGE drain tubing. RN will continue to monitor.
[2019-01-19] MEDS: POTASSIUM CL 20MEQ-0.45% NACL 1,000 ML IV SCH ×3 (00:39→22:19)
[2019-01-19 03:00] VITALS: BP 101/65
--- NOTE | 2019-01-19 04:19 | NUR ---
RN stripped the SAIGE drain tubing. RN will continue to monitor.
[2019-01-19 07:00] VITALS: BP 106/65
--- NOTE | 2019-01-19 08:56 | PDOC ---
SURGICAL PROGRESS NOTE Subjective Minimal pain Vital Signs Vital Signs Date Time Temp Pulse Resp B/P (MAP) Pulse Ox O2 Delivery O2 Flow Rate FiO2 01/19/19 03:00 98.6 75 18 101/65 (77) 96 Room Air 98.6 I&O Intake and Output 01/19/19 07:00 Intake Total 1000 ml Output Total 4210 ml Balance -3210 ml IV Total 1000 ml Output Urine Total 4050 ml Drainage Total 160 ml PATIENT HAS A PEREZ: Yes General: Alert, Oriented X3, Cooperative, mild distress Abdomen: Soft, Other (mild incisional tenderness colostomy and tacked pink viable minimal output. SAIGE was serosanguineous drainage) Labs Laboratory Tests Test 01/18/19 11:44 White Blood Count 7.2 x10^3/uL (4.0-11.0) Red Blood Count 3.90 x10^6/uL (3.50-5.40) Hemoglobin 11.5 g/dL (12.0-15.5) Hematocrit 34.2 % (36.0-47.0) Mean Corpuscular Volume 88 fL (79-100) Mean Corpuscular Hemoglobin 30 pg (25-35) Mean Corpuscular Hemoglobin Concent 34 g/dL (31-37) Red Cell Distribution Width 12.2 % (11.5-14.5) Platelet Count 164 x10^3/uL (140-400) Neutrophils (%) (Auto) 85 % (31-73) Lymphocytes (%) (Auto) 8 % (24-48) Monocytes (%) (Auto) 6 % (0-9) Eosinophils (%) (Auto) 0 % (0-3) Basophils (%) (Auto) 0 % (0-3) Neutrophils # (Auto) 6.1 x10^3uL (1.8-7.7) Lymphocytes # (Auto) 0.6 x10^3/uL (1.0-4.8) Monocytes # (Auto) 0.5 x10^3/uL (0.0-1.1) Eosinophils # (Auto) 0.0 x10^3/uL (0.0-0.7) Basophils # (Auto) 0.0 x10^3/uL (0.0-0.2) Sodium Level 139 mmol/L (136-145) Potassium Level 3.6 mmol/L (3.5-5.1) Chloride Level 103 mmol/L (98-107) Carbon Dioxide Level 25 mmol/L (21-32) Anion Gap 11 (6-14) Blood Urea Nitrogen 10 mg/dL (7-20) Creatinine 0.5 mg/dL (0.6-1.0) Estimated GFR (Cockcroft-Gault) 128.1 Glucose Level 89 mg/dL (70-99) Calcium Level 8.1 mg/dL (8.5-10.1) Laboratory Tests Test 01/18/19 11:44 White Blood Count 7.2 x10^3/uL (4.0-11.0) Red Blood Count 3.90 x10^6/uL (3.50-5.40) Hemoglobin 11.5 g/dL (12.0-15.5) Hematocrit 34.2 % (36.0-47.0) Mean Corpuscular Volume 88 fL (79-100) Mean Corpuscular Hemoglobin 30 pg (25-35) Mean Corpuscular Hemoglobin Concent 34 g/dL (31-37) Red Cell Distribution Width 12.2 % (11.5-14.5) Platelet Count 164 x10^3/uL (140-400) Neutrophils (%) (Auto) 85 % (31-73) Lymphocytes (%) (Auto) 8 % (24-48) Monocytes (%) (Auto) 6 % (0-9) Eosinophils (%) (Auto) 0 % (0-3) Basophils (%) (Auto) 0 % (0-3) Neutrophils # (Auto) 6.1 x10^3uL (1.8-7.7) Lymphocytes # (Auto) 0.6 x10^3/uL (1.0-4.8) Monocytes # (Auto) 0.5 x10^3/uL (0.0-1.1) Eosinophils # (Auto) 0.0 x10^3/uL (0.0-0.7) Basophils # (Auto) 0.0 x10^3/uL (0.0-0.2) Sodium Level 139 mmol/L (136-145) Potassium Level 3.6 mmol/L (3.5-5.1) Chloride Level 103 mmol/L (98-107) Carbon Dioxide Level 25 mmol/L (21-32) Anion Gap 11 (6-14) Blood Urea Nitrogen 10 mg/dL (7-20) Creatinine 0.5 mg/dL (0.6-1.0) Estimated GFR (Cockcroft-Gault) 128.1 Glucose Level 89 mg/dL (70-99) Calcium Level 8.1 mg/dL (8.5-10.1) Assessment/Plan Status post APR waiting return of bowel function continue supportive care DANIELA CAMPBELL MD Jan 19, 2019 08:56
[2019-01-19 11:00] VITALS: BP 108/64
[2019-01-19] MEDS: ENOXAPARIN 40 MG/0.4 ML SYRINGE. SQ SCH (11:50)
[2019-01-19 15:00] VITALS: BP 97/62
[2019-01-19 19:00] VITALS: BP 113/69
[2019-01-19 23:00] VITALS: BP 105/66
[2019-01-20 03:00] VITALS: BP 93/59
[2019-01-20 07:00] VITALS: BP 107/65
[2019-01-20] MEDS: POTASSIUM CL 20MEQ-0.45% NACL 1,000 ML IV SCH ×2 (07:52→19:21)
--- NOTE | 2019-01-20 08:42 | PDOC ---
SURGICAL PROGRESS NOTE Subjective Patient minimal incisional pain Vital Signs Vital Signs Date Time Temp Pulse Resp B/P (MAP) Pulse Ox O2 Delivery O2 Flow Rate FiO2 01/20/19 07:00 98.7 72 18 107/65 (79) 97 Room Air 98.7 I&O Intake and Output 01/20/19 07:00 Intake Total 310 ml Output Total 1410 ml Balance -1100 ml Intake Oral 310 ml Output Urine Total 1300 ml Drainage Total 110 ml # Voids 6 PATIENT HAS A PEREZ: No General: Alert, Oriented X3, Cooperative, mild distress Abdomen: Normal bowel sounds, Soft, Other (incisional tenderness wounds clean dry and intact minimal colostomy output) Labs Laboratory Tests Test 01/18/19 11:44 White Blood Count 7.2 x10^3/uL (4.0-11.0) Red Blood Count 3.90 x10^6/uL (3.50-5.40) Hemoglobin 11.5 g/dL (12.0-15.5) Hematocrit 34.2 % (36.0-47.0) Mean Corpuscular Volume 88 fL (79-100) Mean Corpuscular Hemoglobin 30 pg (25-35) Mean Corpuscular Hemoglobin Concent 34 g/dL (31-37) Red Cell Distribution Width 12.2 % (11.5-14.5) Platelet Count 164 x10^3/uL (140-400) Neutrophils (%) (Auto) 85 % (31-73) Lymphocytes (%) (Auto) 8 % (24-48) Monocytes (%) (Auto) 6 % (0-9) Eosinophils (%) (Auto) 0 % (0-3) Basophils (%) (Auto) 0 % (0-3) Neutrophils # (Auto) 6.1 x10^3uL (1.8-7.7) Lymphocytes # (Auto) 0.6 x10^3/uL (1.0-4.8) Monocytes # (Auto) 0.5 x10^3/uL (0.0-1.1) Eosinophils # (Auto) 0.0 x10^3/uL (0.0-0.7) Basophils # (Auto) 0.0 x10^3/uL (0.0-0.2) Sodium Level 139 mmol/L (136-145) Potassium Level 3.6 mmol/L (3.5-5.1) Chloride Level 103 mmol/L (98-107) Carbon Dioxide Level 25 mmol/L (21-32) Anion Gap 11 (6-14) Blood Urea Nitrogen 10 mg/dL (7-20) Creatinine 0.5 mg/dL (0.6-1.0) Estimated GFR (Cockcroft-Gault) 128.1 Glucose Level 89 mg/dL (70-99) Calcium Level 8.1 mg/dL (8.5-10.1) Assessment/Plan Status post APR awaiting return of bowel function continue supportive care DANIELA CAMPBELL MD Jan 20, 2019 08:42
[2019-01-20] MEDS: ENOXAPARIN 40 MG/0.4 ML SYRINGE. SQ SCH (10:05)
[2019-01-20 11:00] VITALS: BP 111/71
[2019-01-20 15:00] VITALS: BP 102/66
[2019-01-20 19:00] VITALS: BP 92/55
[2019-01-20] MEDS: HYDROmorphone 12mg/30ml PCA 30 ML IV PRN (19:31)
[2019-01-20 23:00] VITALS: BP 96/53
[2019-01-21] VITALS (7 sets, daily range): BP systolic 96–132; BP diastolic 57–72
[2019-01-21] MEDS: POTASSIUM CL 20MEQ-0.45% NACL 1,000 ML IV SCH ×2 (05:38→18:28)
[2019-01-21 05:59] LABS: HEMOGLOBIN 11.7 g/dL (12.0-15.5)
[2019-01-21 06:19] LABS: CREATININE 0.5 mg/dL (0.6-1.0); GFR 128.1
--- NOTE | 2019-01-21 10:00 | PDOC ---
CHELSIE BOURNE [employer]IN [employer]ER 01/21/19 1000: SURGICAL PROGRESS NOTE Subjective no n/v trying to sleep this AM incisional pain Vital Signs Vital Signs Date Time Temp Pulse Resp B/P (MAP) Pulse Ox O2 Delivery O2 Flow Rate FiO2 01/21/19 08:02 98.1 77 18 114/63 (80) 97 Room Air 98.1 I&O Intake and Output 01/21/19 07:00 Intake Total 410 ml Output Total 50 ml Balance 360 ml Intake Oral 410 ml Drainage Total 50 ml # Voids 5 General: Alert, Cooperative Abdomen: Soft, Other (incision c/d/i, no erythema, stoma pink, zoie serosang ) Labs Laboratory Tests Test 01/21/19 04:58 Hemoglobin 11.7 g/dL (12.0-15.5) Platelet Count 211 x10^3/uL (140-400) Creatinine 0.5 mg/dL (0.6-1.0) Estimated GFR (Cockcroft-Gault) 128.1 Laboratory Tests Test 01/21/19 04:58 Hemoglobin 11.7 g/dL (12.0-15.5) Platelet Count 211 x10^3/uL (140-400) Creatinine 0.5 mg/dL (0.6-1.0) Estimated GFR (Cockcroft-Gault) 128.1 Problem List s/p APR await bowel function VIOLET LAZO MD 01/21/19 1206: SURGICAL PROGRESS NOTE Assessment/Plan pt seen family/friends at bedside interpret would like more to eat doesn't fell ready to go home yet will advance diet as tolerated CHELSIE BOURNE APRN Jan 21, 2019 10:00 VIOLET LAZO MD Jan 21, 2019 12:06
[2019-01-21] MEDS: ENOXAPARIN 40 MG/0.4 ML SYRINGE. SQ SCH (11:22)
--- NOTE | 2019-01-21 13:32 | NUR ---
SW following for discharge planning. Discussed with RN, pt having ostomy teaching this afternoon. PT recommending home with assistance, pt declined OT today. Pt is still on [employer] pump. SW will continue to follow.
--- NOTE | 2019-01-21 14:06 | PATHOLOGY ---
[facility] Accession Number: [id number] . 01 Material submitted: . PART A: sigmoid colon - RECTO SIGMOID AP RESECTION PART B: ovary - RIGHT OVARY. Modifiers: right PART C: ovary - LEFT OVARY. Modifiers: left PART D: vagina - VAGINAL BIOPSY PART E: appendix - APPENDIX . 01 Clinical history: . Appendicitis, rectal cancer . 01 Frozen section diagnosis: . INTRAOPERATIVE CONSULTATION WITH GROSS IMPRESSION: Distal sigmoid colon and rectum with attached mesorectum and segment of vaginal wall, AP resection: - Ulcerated carcinoma of distal rectum - margins grossly free of neoplasm. - Lymph nodes of middle mesorectum suspicious for tumor involvement. (JPM:pit/saadia 01/21/2019) . . GROSS DESCRIPTION: A. The specimen is received fresh for intraoperative consultation and is designated "rectosigmoid AP resection". This consists of a segment of rectum and sigmoid colon which measures up to 20 cm in length. The proximal sigmoid colon margin of resection is stapled closed. The distal anal margin is closed with sutures. There is an area of tattooing of the proximal anti-mesocolic serosa of the sigmoid colon and adjacent proximal mesorectum. The mesorectum is yellow-red, focally torn, shows focal cautery artifact. Attached to the distal mesorectum, approximately 3 cm from the distal margin, there is a segment of pink-machado vaginal wall attached to the mesorectum measuring up to 4.5 x 2.0 cm. This is soft and does not grossly appear to be involved by tumor. There is an area of nodularity palpated within the middle mesorectum. The circumferential margin in this area is inked with black ink. The specimen is opened longitudinally. Arising approximately 3.1 cm from the distal anal skin margin, there is a nearly circumferential ulcerated lesion of the rectum which measures approximately 5.5 x 2.5 cm. The mass is indurated. The distal rectal mucosa proximal to the anal skin is torn over a distance of 3.5 cm. Proximal to the mass, the rectal and sigmoid mucosa is pink-machado and relatively smooth and shows focal tattooing. The area of nodularity palpated within the middle mesorectum appears to correspond to tumor involved lymph nodes which are just beneath the inked circumferential margin. (JPM:pit/saadia 01/21/2019) . Frozen section performed at [facility], [address] [place], [place] [id number]. /QTP . 02 Diagnosis: A. Distal sigmoid colon, rectum, and anal skin with attached mesorectum and portion of anterior vaginal wall, AP resection: - INVASIVE COLORECTAL ADENOCARCINOMA, MODERATELY TO FOCALLY POORLY DIFFERENTIATED, FORMING AN ULCERATED MASS OF THE DISTAL RECTUM MEASURING 5.5 X 2.5 CM, WITH TUMOR INVASION THROUGH MUSCULAR WALL INTO PERIRECTAL SOFT TISSUES. - METASTATIC ADENOCARCINOMA INVOLVING 10 OF 18 MESORECTAL LYMPH NODES. - Extranodal tumor implants of mesorectum, multiple. - Focal vascular tumor invasion identified. - Focal perineural tumor invasion identified. - Tumor is approximately 3.1 cm from the closest distal anal margin of resection. - Circumferential radial mesorectal margin of resection negative for tumor. - Tumor is 0.8 cm from circumferential attached portion of vaginal wall. . B. Right ovary, excision: - Atrophy - negative for tumor. . C. Left ovary, excision: - Atrophy - negative for tumor. . D. Squamous mucosa and underlying fibromuscular and skeletal muscle tissue, vaginal biopsy: - Negative for tumor. . E. Appendix, excision: - Chronic inflammation - negative for tumor. (JPM:saadia; 01/21/2019) . . Surgical Pathology Cancer Case Summary . Protocol posting date: January 2017 . COLON AND RECTUM: . . Procedure ___ Abdominoperineal resection . Tumor Site ___ Rectum . Tumor Location: ___ Entirely below the anterior peritoneal reflection . Tumor Size Greatest dimension (centimeters): 5.5 cm . Macroscopic Tumor Perforation ___ Not identified . Macroscopic Intactness of Mesorectum ___ Near complete . Histologic Type ___ Adenocarcinoma . Histologic Grade ___ Moderately to focally poorly differentiated . Tumor Extension ___ Tumor invades through the muscularis propria into pericolorectal tissue . Margins ___ All margins are uninvolved by invasive carcinoma, high grade dysplasia, intramucosal adenocarcinoma, and adenoma. . Margins examined: Proximal, distal, circumferential radial with attached portion of anterior vaginal wall. . + Distance of invasive carcinoma from closest margin (millimeters or centimeters): 8 mm + Specify closest margin: Circumferential radial anterior vaginal wall. . Treatment Effect ___ Cannot be determined . Lymphovascular Invasion ___ Present - Large vessel invasion: - Extramural . Perineural Invasion ___ Present . Type of Polyp in Which Invasive Carcinoma Arose ___ Tubular adenoma . Tumor Deposits ___ Present Number cannot be determined. . Regional Lymph Nodes . Number of Lymph Nodes Involved: 10 Number of Lymph Nodes Examined: 18 . Pathologic Stage Classification (pTNM, AJCC 8th Edition) . Primary Tumor (pT) ___ pT3: Tumor invades through the muscularis propria into pericolorectal tissues. . Regional Lymph Nodes (pN) ___ pN2b: 7 or more regional lymph nodes are positive. . Additional Pathologic Findings ___ None identified . . (JPM:saadia; 01/21/2019) QMS/01/21/2019 . 02 Electronically signed: . Shad Roldan MD, Pathologist NPI- [id number] . 01 Gross description: . A. PLEASE SEE FROZEN SECTION FOR GROSS DESCRIPTION . Specimen held for overnight fixation. . A. The attached blue dotted vaginal wall is further inked blue. Sectioning through the ulcerated lesion reveals involvement of the muscular wall and possible obliteration of the wall. The lesion extends 0.7 cm from the blue inked vaginal wall tissue and grossly clears the mesorectum. The mesorectum reveals multiple lymph node candidates which many are suspicious for tumor involvement measuring between 0.2 cm and 2.5 cm. Process Stripper sections are submitted as follows: . A1: Distal margin, perpendicular A2: Proximal margin, en face A3-A7: Ulcerated mass A8: Ulcerated mass relationship to vaginal wall A9-A13: Rest of vaginal wall, perpendicular sections A14: 2 tumor involved lymph nodes, fraud representative A15: 1 trisected involved candidate A16: 2 bisected candidates, one inked black and one inked blue A17: 6 intact lymph node candidates A18: 2 bisected lymph node candidates, blue ink bisected candidate suspicious A19: 2 bisected candidates, blue inked suspicious A20: 4 intact lymph node candidates A21: Process Stripper from 2 involved lymph nodes A22: Process Stripper from 2 involved lymph nodes (SDY; 01/17/2019) . B. The specimen is received in formalin, labeled "Pete Boyd, right ovary" and consists of a 2 g pink-machado atrophic ovary measuring 2.2 x 1.0 x 0.6 cm with attached pink-yellow tissue measuring 2.5 x 1.3 x 0.5 cm. Sectioning reveals white-pink ovary cut surfaces and no gross lesions. The ovary is entirely submitted in B1-B2. . C. The specimen is received in formalin, labeled "Pete Boyd, left ovary" and consists of a 1 g pink and hemorrhagic ovary measuring 1.9 x 1.2 x 0.6 cm. Sectioning reveals pink-white cut surfaces and no gross lesions. The ovary is entirely submitted in C1. . D. The specimen is received in formalin, labeled "Pete Boyd, vaginal biopsy" and consists of 2 cauterized segments of pink-machado tissue measuring 1.1 x 0.8 x 0.5 cm and 1.5 x 0.9 x 0.5 cm. They are inked black, serially sectioned, and entirely submitted in D1-D2. . E. The specimen is received in formalin, labeled "Pete Boyd, appendix" and consists of a curved pink-machado appendix measuring 8.4 cm in length and ranging from 0.5-0.7 cm in diameter. The proximal margin is closed with a line of ebony. The mesoappendix tissue lines the entire specimen ranging from 0.3-1.7 cm thick. The margin is inked black and sectioning reveals a slightly dilated lumen (up to 0.3 cm) containing green-machado fecal material and no discrete fecaliths or masses. Process Stripper sections are submitted in E1. (SDY; 01/16/2019) SYU/SYU . 02 Pathologist provided ICD-10: C20, N83.311, N83.312, K35.80 . 02 CPT . 788281, 307923, 428761, 082353, 696607, 221192 Specimen Comment: A courtesy copy of this report has been sent to Specimen Comment: [phone]. Specimen Comment: Report sent to Performed at: 01 [facility] [address], [place], [place] [id number] MD Yaron Pettit MD Phone: [phone] Performed at: [address] [facility] [address] [place], [place] [id number] MD Shad Roldan MD Phone: [phone]
--- NOTE | 2019-01-21 15:30 | NUR ---
Wound/Ostomy Care Pt seen for Ostomy teaching, 4 friends/scientology members at bedside for teaching and translating. Ostomy teaching completed, all questions answered between everyone and pt is agreeable to enrollment in [employer] to assist with supplies and insurance assistance with supplies/bags. Will return tomorrow with additional Colostomy and dietary information for patient. Stoma is well protruding, pink and moist, with a gelatinous mucous covering over stoma, pt stated she has been eating a lot of jello. Peristomal skin is clear and intact, no breakdown noted. Will continue to follow for Ostomy needs, clinic number given to pt for contact.
[2019-01-21] MEDS: HYDROcodone/APAP 5/325MG 1 TAB TABLET PO PRN (19:25)
[2019-01-22] VITALS (7 sets, daily range): BP systolic 91–127; BP diastolic 59–75
[2019-01-22] MEDS: HYDROcodone/APAP 5/325MG 1 TAB TABLET PO PRN ×4 (06:26→22:08)
[2019-01-22] MEDS: POTASSIUM CL 20MEQ-0.45% NACL 1,000 ML IV SCH ×2 (06:33→22:44)
[2019-01-22] MEDS: ENOXAPARIN 40 MG/0.4 ML SYRINGE. SQ SCH (08:11)
--- NOTE | 2019-01-22 11:20 | NUR ---
Wound/Ostomy Care Additional written Colostomy educational booklet provided to patient from [facility] re: dietary, personal care, etc. Pt had many more questions re: care, all questions answered with the help from her friends at bedside, pt seems more confident today with Colostomy and bag. Will f/u tomorrow for any additional questions.
[2019-01-22] MEDS ORDERED: HYDR-2761 PO (12:03)
--- NOTE | 2019-01-22 12:08 | DISCH ---
DISCHARGE INSTRUCTIONS Condition on Discharge Condition on Discharge: Stable Activity After Discharge Activity Instructions for Disc: Activity as tolerated Other activity instructions: NO lifting > 20 lbs Lifting Instructions after Dis: No heavy lifting Exercise Instruction after Dis: Progress as tolerated Driving Instructions after Dis: Do not drive Weight Bearing Status after Di: As tolerated Diet after Discharge Diet after Discharge: Regular Liquid Texture: Thin Liquid Wound Incision Care Wound/Incision Care: Change dressing, May get incision wet Contacting the DRJose G after DC Call your doctor for: Concerns you may have Follow-Up Follow up with: Dr Medina 1 week, call to schedule [phone] CHELSIE BOURNE APRN Jan 22, 2019 12:08
--- NOTE | 2019-01-22 12:10 | PDOC ---
CHELSIE BOUREN [employer] PARTNER 01/22/19 1209: SURGICAL PROGRESS NOTE Subjective pain is managed vaginal bleeding, changing pads TID no emesis currently some ostomy teaching Vital Signs Vital Signs Date Time Temp Pulse Resp B/P (MAP) Pulse Ox O2 Delivery O2 Flow Rate FiO2 01/22/19 11:00 98.9 79 18 91/61 (71) 96 Room Air 98.9 01/21/19 19:25 2.0 I&O Intake and Output 01/22/19 06:59 Intake Total 2706.75 ml Output Total 25 ml Balance 2681.75 ml Intake Oral 1300 ml IV Total 706.75 ml Other 700 ml Drainage Total 25 ml # Voids 6 General: Alert, Oriented X3, Cooperative, No acute distress Abdomen: Soft, Other (ND, incision c/d/i, no erythema, SAIGE serosang ) Labs Laboratory Tests Test 01/21/19 04:58 Hemoglobin 11.7 g/dL (12.0-15.5) Platelet Count 211 x10^3/uL (140-400) Creatinine 0.5 mg/dL (0.6-1.0) Estimated GFR (Cockcroft-Gault) 128.1 Assessment/Plan s/p APR decreasing drain output--will review with Dr Lazo Possible dc drain, dc home VIOLET LAZO MD 01/22/19 1323: SURGICAL PROGRESS NOTE Assessment/Plan pt seen friend translates possible home tomorrow CHELSIE BOURNE [employer]NER Jan 22, 2019 12:09 VIOLET LAZO MD Jan 22, 2019 13:23
--- NOTE | 2019-01-22 16:26 | NUR ---
CHELSEA following. Pt and pt's family agreeable to home health. Would like an agency who takes pt's insurance and is familiar with ostomy care. CHELSEA faxing face sheet to [facility], as pt's insurance is [facility]. RN notified.
[2019-01-23 03:00] VITALS: BP 95/55
[2019-01-23] MEDS: HYDROcodone/APAP 5/325MG 1 TAB TABLET PO PRN ×3 (05:36→13:06)
[2019-01-23 07:00] VITALS: BP 112/66
[2019-01-23] MEDS: ENOXAPARIN 40 MG/0.4 ML SYRINGE. SQ SCH (10:11)
--- NOTE | 2019-01-23 10:27 | NUR ---
CHELSEA following for discharge planning. Discussed with RN, pt likely to discharge home today with home health. Family agreeable to [facility]. [facility] advised pt's insurance needs 24 hour notice for auth, family/ pt aware. [facility] requested someone be there to translate for pt at least for the first appointment, CHELSEA discussed with family; Rachrist (pronounced Q) Aubrey Giles ([phone]) can be contacted to arrange time to have the first visit with pt. CHELSEA notified Dr. Medina of home health plans, order to be written for home health PT/OT/RN and bath aide to assist/ teach pt best way to bathe. SW to fax discharge paperwork/orders to [facility] when available.
--- NOTE | 2019-01-23 10:43 | DISCH ---
DISCHARGE INSTRUCTIONS Condition on Discharge Condition on Discharge: Stable Activity After Discharge Activity Instructions for Disc: Activity as tolerated Other activity instructions: NO lifting > 20 lbs Lifting Instructions after Dis: No heavy lifting Exercise Instruction after Dis: Progress as tolerated Driving Instructions after Dis: Do not drive Weight Bearing Status after Di: As tolerated Diet after Discharge Diet after Discharge: Regular Wound Incision Care Wound/Incision Care: May get incision wet Other wound/incision instructi: nothing vaginally (tampons, intercourse) Contacting the DRJose G after DC Call your doctor for: Concerns you may have Follow-Up Follow up with: Dr Lazo 1 week, call to schedule [phone] VIOLET LAZO MD Jan 23, 2019 10:43
--- NOTE | 2019-01-23 10:47 | PDOC3 ---
Discharge Summary Visit Information Date of Admission: January 16, 2019 Date of Discharge: Jan 23, 2019 Admitting Diagnosis Comment: rectal carcinoma Final Diagnosis T3, N2b rectal carcinoma Brief Hospital Course Allergies Allergies Coded Allergies Type Severity Reaction Last Updated Verified No Known Drug Allergies 09/15/18 No Vital Signs Vital Signs Date Time Temp Pulse Resp B/P (MAP) Pulse Ox O2 Delivery O2 Flow Rate FiO2 01/23/19 10:10 97 Room Air 2.0 01/23/19 07:00 98.4 77 18 112/66 (81) 98.4 Brief Hospital Course Ms. Boyd is a 54 yo female who presented with [ rectal carcinoma. She underwent an A/P resection. She did well post op. Discharge Information Condition at Discharge: Stable Follow Up: As Needed Disposition/Orders: D/C to Home w/ HH Scheduled PRN Hydrocodone Bit/Acetaminophen (Hydrocodone-Apap 5-325 ) 1 Tab Tablet, 1 TAB PO PRN Q6HRS PRN for PAIN, #30 Ref 0 Prescribed by: Dorene Cornejo on 01/22/19 1203 Discontinued Medications Na Phos,M-B/Na Phos,Di-Ba (Enema) 133 Ml Enema, 133 ML RC DAILY for CONSTIPATION, (Reported) Entered as Reported by: MELANIE TILLMAN on 01/09/19 1353 Last Taken: Unknown Dose on 01/15/19 Last Action: Reviewed on 01/16/19 1004 by VIOLET WARREN MD Jan 23, 2019 10:47
[2019-01-23 11:00] VITALS: BP 110/63
--- NOTE | 2019-01-23 14:30 | NUR ---
Wound and Ostomy Care Visited pt at time of discharge to sign [email or web address] program paperwork. All additional questions were answered from pt and her friends. Pt was given [facility] wound clinic number with any additional questions she may have re: her Colostomy or products that were ordered.
--- NOTE | 2019-01-23 15:00 | NUR ---
Pt was discharged to home with at 1435 with all personal belongings after reviewing all pertinent information including education, medications, follow up and at home care. [facility] to call pt this evening or in the AM, pt is aware. This nurse set up follow up appt for pt with Dr. Medina on 01/30 at 0900. Pt was escorted by staff and friends to the main exit where her friend drove her home.
== END 2019-01-23 14:35 | disposition home health service (06) | DRG 331 ==
LOC: OPSVCIP 09:04 → 4 NORTH 16:19
PROVIDERS: ADMIT Surgery; ATTEND Surgery
PROC: 0UT24ZZ Resection of Bilateral Ovaries, Percutaneous Endoscopic Approach (ICD-10-PCS; 2019-01-16)
PROC: 0DBP4ZZ Excision of Rectum, Percutaneous Endoscopic Approach (ICD-10-PCS; 2019-01-16)
PROC: 0DBN4ZZ Excision of Sigmoid Colon, Percutaneous Endoscopic Approach (ICD-10-PCS; 2019-01-16)
PROC: 0T788DZ Dilation of Bilateral Ureters with Intraluminal Device, Via Natural or Artificial Opening Endoscopic (ICD-10-PCS; 2019-01-16)
PROC: 0DJD8ZZ Inspection of Lower Intestinal Tract, Via Natural or Artificial Opening Endoscopic (ICD-10-PCS; 2019-01-16)
PROC: 0D1N4Z4 Bypass Sigmoid Colon to Cutaneous, Percutaneous Endoscopic Approach (ICD-10-PCS; principal; 2019-01-16 10:30)
PROC: 0DTJ4ZZ Resection of Appendix, Percutaneous Endoscopic Approach (ICD-10-PCS; 2019-01-16 10:30)
DX: C20 Malignant neoplasm of rectum (principal); I95.9 Hypotension, unspecified; Z80.1 Family history of malignant neoplasm of trachea, bronchus and lung
CPT/HCPCS: 36415; 74018; 80048; 82565; 85007; 85018; 85025; 85049; 86850; 86870; 86900; 86901; 88302; 88305; 88307; A7015; C1769; J0171; J0694; J1100; J1170; J1650; J2001; J2405; J2704; J2710; J3010; J3490; J7120; 97110; 97116; 97530; 97535; A4461

== ENCOUNTER 2019-02-02 21:56 | Inpatient (IN) | payer BC ==
[~2019-02-02] VITALS: Ht 165.1 cm; Wt 68.5 kg
[~2019-02-02 21:56] MED LIST changes: -HYDROmorphone 2 MG/ML VIAL IV PRN; -IV RINGERS,LACTATED 1000ML 1,000 ML IV SCH; -MORPHINE SULFATE 2 MG/ML VIAL. IV PRN; -ONDANSETRON PF 4 MG/2 ML VIAL. IV PRN; -PROCHLORPERAZINE 10 MG/2 ML VIAL. IV PRN; -fentaNYL PF VIAL 100 MCG/2 ML VIAL IV PRN
[2019-02-02] MEDS ORDERED: HYDROmorphone 2 MG/ML VIAL IV PRN (22:15)
[2019-02-02] MEDS ORDERED: HYDR-2759 PO (22:28)
[2019-02-02] MEDS ORDERED: AMOX1TAB10 PO (22:28)
[2019-02-02 22:45] VITALS: BP 126/77
[2019-02-02] MEDS: ACETAMINOPHEN 325 MG TABLET. PO PRN (22:59)
[2019-02-02] MEDS: IV NORMAL SALINE 1000ML BAG 1,000 ML IV SCH (22:59)
[2019-02-02] MEDS ORDERED: PIP/TAZO PER PHARMACY MC PRN (23:00)
[2019-02-02] MEDS ORDERED: HYDROmorphone 12mg/30ml PCA 30 ML IV PRN (23:00)
[2019-02-02 23:09] LABS: BASO % 0 % (0-3); EOS % 0 % (0-3); HEMATOCRIT 28.6 % (36.0-47.0); HEMOGLOBIN 9.8 g/dL (12.0-15.5); LYMPH # 0.5 x10^3/uL (1.0-4.8); LYMPH % 7 % (24-48); MEAN CORPUSCULAR HEMOGLOBIN 30 pg (25-35); MEAN CORPUSCULAR HGB CONC 34 g/dL (31-37); MEAN CORPUSCULAR VOLUME 88 fL (79-100); MONO # 0.6 x10^3/uL (0.0-1.1); MONO % 9 % (0-9); NEUT # 6.2 x10^3uL (1.8-7.7); NEUT % 83 % (31-73); PLATELET COUNT 305 x10^3/uL (140-400); RED BLOOD COUNT 3.26 x10^6/uL (3.50-5.40); RED CELL DISTRIBUTION WIDTH 12.1 % (11.5-14.5); WHITE BLOOD COUNT 7.4 x10^3/uL (4.0-11.0)
[2019-02-02 23:19] LABS: CALCIUM 8.4 mg/dL (8.5-10.1); CREATININE 0.7 mg/dL (0.6-1.0); GFR 86.9; POTASSIUM 3.2 mmol/L (3.5-5.1)
--- NOTE | 2019-02-02 23:28 | PDOC1 ---
History and Physical Date of Admission Date of Admission DATE: 02/02/19 TIME: 23:22 Identification/Chief Complaint Chief Complaint fever Source Source: Caregiver, Patient History of Present Illness History of Present Illness Min is two plus weeks post op AP resection for rectal carcinoma. Was seen in the office five days ago, doing well. Last two days started having intermittent fever and chills. No nausea or vomiting. Past Medical History Cardiovascular: No pertinent hx Pulmonary: No pertinent hx GI: Other (rectal carcinoma) Heme/Onc: No pertinent hx Hepatobiliary: No pertinent hx Psych: No pertinent hx Rheumatologic: No pertinent hx Infectious disease: No pertinent hx Renal/: No pertinent hx Endocrine: No pertinent hx Past Surgical History Past Surgical History: Other (A/P resection 01/16) Family History Family History: No Significant Social History Smoke: No ALCOHOL: none Drugs: None Current Medications Current Medications Current Medications Sodium Chloride 1,000 ml @ 250 mls/hr Q4H IV Last administered on 02/02/19at 22:59; Start 02/02/19 at 22:15 Acetaminophen (Tylenol) 650 mg PRN Q4HRS PRN PO TEMP OVER 100.4F OR MILD PAIN Last administered on 02/02/19at 22:59; Start 02/02/19 at 22:15 Hydromorphone HCl (Dilaudid) 0.5 mg PRN Q3HRS PRN IV pain Last administered on 02/02/19at 22:59; Start 02/02/19 at 22:15 Hydromorphone HCl 30 ml @ 0 mls/hr CONT PRN PRN IV PER PROTOCOL; Start 02/02/19 at 23:00 Vancomycin HCl 1 gm/Sodium Chloride 250 ml @ 250 mls/hr Q24H IV ; Start 02/02/19 at 23:00; Status UNV Piperacillin Sod/ Tazobactam Sod (Zosyn Per Pharmacy) 1 each PRN DAILY PRN MC SEE COMMENTS; Start 02/02/19 at 23:00; Status UNV Active Scripts Active Hydrocodone-Apap 5-325 (Hydrocodone Bit/Acetaminophen) 1 Tab Tablet 1 Tab PO PRN Q6HRS PRN Reported Amox Tr-K Clv 500-125 Mg Tab (Amoxicillin/Potassium Clav) 1 Each Tablet 1 Tab PO BID Hydrocodone-Acetamin 5-325 mg (Hydrocodone/Acetaminophen) 1 Each Tablet 1 Each PO PRN Q4HRS PRN Allergies Allergies: Coded Allergies: No Known Drug Allergies (Unverified , 09/15/18) ROS General: YES: Chills, Other (fever) Physical Exam General: Alert, No acute distress HEENT: Atraumatic Lungs: Normal air movement Heart: RRR Abdomen: Soft, Other (stoma viable, midline incision with minimal erythema, no drainage) Rectal Exam: other (perineal incision without erythema or drainage) Skin: Other (warm,dry) Vitals Vitals Vital Signs Date Time Temp Pulse Resp B/P (MAP) Pulse Ox O2 Delivery O2 Flow Rate FiO2 02/02/19 22:59 Room Air Labs Labs Laboratory Tests Test 02/02/19 23:00 White Blood Count 7.4 x10^3/uL (4.0-11.0) Red Blood Count 3.26 x10^6/uL (3.50-5.40) Hemoglobin 9.8 g/dL (12.0-15.5) Hematocrit 28.6 % (36.0-47.0) Mean Corpuscular Volume 88 fL (79-100) Mean Corpuscular Hemoglobin 30 pg (25-35) Mean Corpuscular Hemoglobin Concent 34 g/dL (31-37) Red Cell Distribution Width 12.1 % (11.5-14.5) Platelet Count 305 x10^3/uL (140-400) Neutrophils (%) (Auto) 83 % (31-73) Lymphocytes (%) (Auto) 7 % (24-48) Monocytes (%) (Auto) 9 % (0-9) Eosinophils (%) (Auto) 0 % (0-3) Basophils (%) (Auto) 0 % (0-3) Neutrophils # (Auto) 6.2 x10^3uL (1.8-7.7) Lymphocytes # (Auto) 0.5 x10^3/uL (1.0-4.8) Monocytes # (Auto) 0.6 x10^3/uL (0.0-1.1) Eosinophils # (Auto) 0.0 x10^3/uL (0.0-0.7) Basophils # (Auto) 0.0 x10^3/uL (0.0-0.2) Laboratory Tests Test 6/15/19 23:00 White Blood Count 7.4 x10^3/uL (4.0-11.0) Red Blood Count 3.26 x10^6/uL (3.50-5.40) Hemoglobin 9.8 g/dL (12.0-15.5) Hematocrit 28.6 % (36.0-47.0) Mean Corpuscular Volume 88 fL (79-100) Mean Corpuscular Hemoglobin 30 pg (25-35) Mean Corpuscular Hemoglobin Concent 34 g/dL (31-37) Red Cell Distribution Width 12.1 % (11.5-14.5) Platelet Count 305 x10^3/uL (140-400) Neutrophils (%) (Auto) 83 % (31-73) Lymphocytes (%) (Auto) 7 % (24-48) Monocytes (%) (Auto) 9 % (0-9) Eosinophils (%) (Auto) 0 % (0-3) Basophils (%) (Auto) 0 % (0-3) Neutrophils # (Auto) 6.2 x10^3uL (1.8-7.7) Lymphocytes # (Auto) 0.5 x10^3/uL (1.0-4.8) Monocytes # (Auto) 0.6 x10^3/uL (0.0-1.1) Eosinophils # (Auto) 0.0 x10^3/uL (0.0-0.7) Basophils # (Auto) 0.0 x10^3/uL (0.0-0.2) Images Images CT abdomen pelvis is PND VTE Prophylaxis Ordered VTE Prophylaxis Devices: Yes VTE Pharmacological Prophylaxi: Contraindicated Assessment/Plan Assessment/Plan s/p AP resection fever check labs, culture urine, blood, CT abdomen/pelvis, empiric antibiotics, hydrate VIOLET LAZO MD Feb 02, 2019 23:28
[2019-02-02] MEDS ORDERED: PIPERACILLIN/TAZOBACTAM 3.375 GM in IV NORMAL SALINE 50ML 50 ML IV ONE (23:30)
[2019-02-02] MEDS ORDERED: VANCOMYCIN 1.75 GM in IV NORMAL SALINE 500ML BAG 500 ML IV ONE (23:45)
[2019-02-03] VITALS (12 sets, daily range): BP systolic 93–143; BP diastolic 51–70
--- NOTE | 2019-02-03 00:06 | NUR ---
Pharmacy Vancomycin Dosing Note S:Consulted to monitor and dose vancomycin started 02/03/19. O:GREER OLVERA is a 54 year old F with Sepsis . Height: 5 feet, 5 inches Weight: 68.021455 kg Albert Body Weight: 57.00 Adjusted Body Weight: 61.40 Dosing Weight: Actual Other Antibiotics: ZOSYN 3.375GM IV Q6H LABS: Last BUN: 7 Last Creatinine: 0.7 Creatinine Clearance: 88 mL/min Last WBC: 7.4 Last Procalcitonin: Tmax (past 24 hours): Microbiology: I/O: Drug Levels: Last level: on at Last dose given at Vancomycin Dosing: Loading Dose: 1750 mg x1 02/03/19 AM Dosing Weight: Actual Target Trough: 15-20 A: Based on: ActualWt and CrCl P: 1. 02/03/19 1230 Vancomycin 1000 mg IV q12h 2. Follow up Trough level on 02/04/19 at 1200 3. Pharmacy will continue to monitor, follow and adjust therapy as needed. KARLA HAMLIN RPH, 02/03/19 0006 Signed: 02/03/19 at 0007 by KARLA HAMLIN RPH PHA
[2019-02-03] MEDS ORDERED: IOHEXOL 300 MG/ML 100ML VIAL. IV ONE (00:15)
[2019-02-03] MEDS ORDERED: CONTRAST GIVEN. MC PRN (00:30)
--- NOTE | 2019-02-03 01:29 | RAD ---
RS Compliance Statement: One or more of the following individualized dose reduction techniques were utilized for this examination: 1. Automated exposure control 2. Adjustment of the mA and/or kV according to patient size 3. Use of iterative reconstruction technique CT ABD PELV W/ IV CONTRST ONLY Clinical Indication: Post AP resection, fever. Comparison: CT abdomen and pelvis with contrast, December 13, 2018. Technique: Helical CT imaging of the abdomen and pelvis is performed after 75 cc of Omnipaque 300 IV contrast. Oral contrast not given. Findings: Lung bases are clear. Cardiac size normal. Liver, gallbladder, spleen, pancreas, adrenal glands, and abdominal aorta caliber are normal. 4 mm nonobstructing right renal calculus. There is mild bilateral hydroureteronephrosis. Stomach is not well distended. There is no dilated small bowel. There is appendectomy. There is left lower quadrant ostomy. Scattered stool in the colon. No colon wall thickening. Distal colon resection. Postsurgical changes ventral abdominal wall. Urinary bladder is normal. Uterus unremarkable. Enhancing nodule in the left pelvis measures 2.3 cm, previously 2.1 cm. There is presacral fluid containing a small bubble of air. Fluid measures approximately 1.9 x 5.8 cm. Mild grade 1 retrolisthesis of L5 on S1. IMPRESSION: 1. Distal colon resection. Left lower quadrant ostomy. Presacral fluid collection contains a bubble of air. Cannot exclude early abscess. 2. Enhancing nodule in the left pelvis is slightly larger, probable liang metastasis. 3. Mild bilateral hydroureteronephrosis. No obstructing process is seen. Electronically signed by: Wally Carrillo MD (02/03/2019 1:26 AM) [id number]
[2019-02-03] MEDS: IV NORMAL SALINE 1000ML BAG 1,000 ML IV SCH ×6 (02:15→21:57)
[2019-02-03 02:46] LABS: BILIRUBIN,URINE NEGATIVE (NEG); CLARITY,URINE CLEAR; COLOR,URINE YELLOW; NITRITE,URINE NEGATIVE (NEG); PH,URINE 7.5; PROTEIN,URINE NEGATIVE (NEG-TRACE); UROBILINOGEN,URINE 0.2 mg/dL (0.2 mg/dL)
[2019-02-03 02:56] LABS: BACTERIA,URINE MODERATE /HPF (0-FEW); WBC,URINE >40 /HPF (0-4)
[2019-02-03 02:57] LABS: SQUAMOUS EPITHELIAL CELL,UR FEW /LPF
--- NOTE | 2019-02-03 04:19 | RAD ---
CHEST AP ONLY Clinical Indication: Fever Comparison: None. Findings: The cardiomediastinal silhouette is normal. There is mild bibasilar airspace disease. There is no pneumothorax. No pleural effusion is appreciated. No acute bone abnormality. IMPRESSION: Mild bibasilar airspace disease, probably atelectasis. Electronically signed by: Wally Carrillo MD (02/03/2019 4:15 AM) [id number]
[2019-02-03] MEDS: POTASSIUM CL 20MEQ-0.45% NACL 1,000 ML IV SCH ×3 (05:08→19:53)
[2019-02-03] MEDS: PIPERACILLIN/TAZOBACTAM 3.375 GM in IV NORMAL SALINE 50ML 50 ML IV SCH ×4 (05:40→23:54)
[2019-02-03] MEDS ORDERED: ACETAMINOPHEN 325 MG TABLET. PO PRN (09:30)
[2019-02-03 09:58] LABS: BASO % 0 % (0-3); EOS % 0 % (0-3); HEMATOCRIT 26.6 % (36.0-47.0); LYMPH # 0.5 x10^3/uL (1.0-4.8); LYMPH % 6 % (24-48); MEAN CORPUSCULAR HEMOGLOBIN 30 pg (25-35); MEAN CORPUSCULAR HGB CONC 34 g/dL (31-37); MEAN CORPUSCULAR VOLUME 88 fL (79-100); MONO # 0.5 x10^3/uL (0.0-1.1); MONO % 7 % (0-9); NEUT # 6.3 x10^3uL (1.8-7.7); NEUT % 86 % (31-73); PLATELET COUNT 282 x10^3/uL (140-400); RED BLOOD COUNT 3.04 x10^6/uL (3.50-5.40); WHITE BLOOD COUNT 7.3 x10^3/uL (4.0-11.0)
[2019-02-03] MEDS: ACETAMINOPHEN 325 MG TABLET. PO PRN ×2 (10:01→19:43)
[2019-02-03 10:13] LABS: CALCIUM 7.6 mg/dL (8.5-10.1); CREATININE 0.5 mg/dL (0.6-1.0); GFR 128.1; POTASSIUM 3.7 mmol/L (3.5-5.1)
[2019-02-03 10:29] LABS: % BANDS 3 % (0-9); % BASOS 1 % (0-3); % LYMPHS 6 % (24-48); % MONOS 5 % (0-10); % SEGS 85 % (35-66); PLT ESTIMATE ADEQUATE (ADEQUATE)
--- NOTE | 2019-02-03 10:54 | PDOC ---
SURGICAL PROGRESS NOTE Subjective frustrated with IV starts has pain Vital Signs Vital Signs Date Time Temp Pulse Resp B/P (MAP) Pulse Ox O2 Delivery O2 Flow Rate FiO2 02/03/19 07:50 100.6 78 17 109/63 (78) 96 Room Air 100.6 I&O Intake and Output 02/03/19 07:00 Intake Total 30 ml Balance 30 ml Intake Oral 30 ml PATIENT HAS A PEREZ: No General: Alert Abdomen: Soft, Other (incision clean and dry) Labs Laboratory Tests Test 02/02/19 23:00 02/03/19 01:20 02/03/19 09:15 White Blood Count 7.4 x10^3/uL (4.0-11.0) 7.3 x10^3/uL (4.0-11.0) Red Blood Count 3.26 x10^6/uL (3.50-5.40) 3.04 x10^6/uL (3.50-5.40) Hemoglobin 9.8 g/dL (12.0-15.5) 9.0 g/dL (12.0-15.5) Hematocrit 28.6 % (36.0-47.0) 26.6 % (36.0-47.0) Mean Corpuscular Volume 88 fL (79-100) 88 fL (79-100) Mean Corpuscular Hemoglobin 30 pg (25-35) 30 pg (25-35) Mean Corpuscular Hemoglobin Concent 34 g/dL (31-37) 34 g/dL (31-37) Red Cell Distribution Width 12.1 % (11.5-14.5) 12.0 % (11.5-14.5) Platelet Count 305 x10^3/uL (140-400) 282 x10^3/uL (140-400) Neutrophils (%) (Auto) 83 % (31-73) 86 % (31-73) Lymphocytes (%) (Auto) 7 % (24-48) 6 % (24-48) Monocytes (%) (Auto) 9 % (0-9) 7 % (0-9) Eosinophils (%) (Auto) 0 % (0-3) 0 % (0-3) Basophils (%) (Auto) 0 % (0-3) 0 % (0-3) Neutrophils # (Auto) 6.2 x10^3uL (1.8-7.7) 6.3 x10^3uL (1.8-7.7) Lymphocytes # (Auto) 0.5 x10^3/uL (1.0-4.8) 0.5 x10^3/uL (1.0-4.8) Monocytes # (Auto) 0.6 x10^3/uL (0.0-1.1) 0.5 x10^3/uL (0.0-1.1) Eosinophils # (Auto) 0.0 x10^3/uL (0.0-0.7) 0.0 x10^3/uL (0.0-0.7) Basophils # (Auto) 0.0 x10^3/uL (0.0-0.2) 0.0 x10^3/uL (0.0-0.2) Sodium Level 135 mmol/L (136-145) 138 mmol/L (136-145) Potassium Level 3.2 mmol/L (3.5-5.1) 3.7 mmol/L (3.5-5.1) Chloride Level 99 mmol/L (98-107) 103 mmol/L (98-107) Carbon Dioxide Level 28 mmol/L (21-32) 26 mmol/L (21-32) Anion Gap 8 (6-14) 9 (6-14) Blood Urea Nitrogen 7 mg/dL (7-20) 5 mg/dL (7-20) Creatinine 0.7 mg/dL (0.6-1.0) 0.5 mg/dL (0.6-1.0) Estimated GFR (Cockcroft-Gault) 86.9 128.1 Glucose Level 152 mg/dL (70-99) 107 mg/dL (70-99) Calcium Level 8.4 mg/dL (8.5-10.1) 7.6 mg/dL (8.5-10.1) Urine Collection Type Unknown Urine Color Yellow Urine Clarity Clear Urine pH 7.5 Urine Specific [place] 1.025 Urine Protein Negative mg/dL (NEG-TRACE) Urine Glucose (UA) Negative mg/dL (NEG) Urine Ketones (Stick) Negative mg/dL (NEG) Urine Blood Negative (NEG) Urine Nitrite Negative (NEG) Urine Bilirubin Negative (NEG) Urine Urobilinogen Dipstick 0.2 mg/dL (0.2 mg/dL) Urine Leukocyte Esterase Large (NEG) Urine RBC 6-10 /HPF (0-2) Urine WBC >40 /HPF (0-4) Urine Squamous Epithelial Cells Few /LPF Urine Bacteria Moderate /HPF (0-FEW) Segmented Neutrophils % 85 % (35-66) Band Neutrophils % 3 % (0-9) Lymphocytes % 6 % (24-48) Monocytes % 5 % (0-10) Basophils % 1 % (0-3) Platelet Estimate Adequate (ADEQUATE) Laboratory Tests Test 02/02/19 23:00 02/03/19 01:20 02/03/19 09:15 White Blood Count 7.4 x10^3/uL (4.0-11.0) 7.3 x10^3/uL (4.0-11.0) Red Blood Count 3.26 x10^6/uL (3.50-5.40) 3.04 x10^6/uL (3.50-5.40) Hemoglobin 9.8 g/dL (12.0-15.5) 9.0 g/dL (12.0-15.5) Hematocrit 28.6 % (36.0-47.0) 26.6 % (36.0-47.0) Mean Corpuscular Volume 88 fL (79-100) 88 fL (79-100) Mean Corpuscular Hemoglobin 30 pg (25-35) 30 pg (25-35) Mean Corpuscular Hemoglobin Concent 34 g/dL (31-37) 34 g/dL (31-37) Red Cell Distribution Width 12.1 % (11.5-14.5) 12.0 % (11.5-14.5) Platelet Count 305 x10^3/uL (140-400) 282 x10^3/uL (140-400) Neutrophils (%) (Auto) 83 % (31-73) 86 % (31-73) Lymphocytes (%) (Auto) 7 % (24-48) 6 % (24-48) Monocytes (%) (Auto) 9 % (0-9) 7 % (0-9) Eosinophils (%) (Auto) 0 % (0-3) 0 % (0-3) Basophils (%) (Auto) 0 % (0-3) 0 % (0-3) Neutrophils # (Auto) 6.2 x10^3uL (1.8-7.7) 6.3 x10^3uL (1.8-7.7) Lymphocytes # (Auto) 0.5 x10^3/uL (1.0-4.8) 0.5 x10^3/uL (1.0-4.8) Monocytes # (Auto) 0.6 x10^3/uL (0.0-1.1) 0.5 x10^3/uL (0.0-1.1) Eosinophils # (Auto) 0.0 x10^3/uL (0.0-0.7) 0.0 x10^3/uL (0.0-0.7) Basophils # (Auto) 0.0 x10^3/uL (0.0-0.2) 0.0 x10^3/uL (0.0-0.2) Sodium Level 135 mmol/L (136-145) 138 mmol/L (136-145) Potassium Level 3.2 mmol/L (3.5-5.1) 3.7 mmol/L (3.5-5.1) Chloride Level 99 mmol/L (98-107) 103 mmol/L (98-107) Carbon Dioxide Level 28 mmol/L (21-32) 26 mmol/L (21-32) Anion Gap 8 (6-14) 9 (6-14) Blood Urea Nitrogen 7 mg/dL (7-20) 5 mg/dL (7-20) Creatinine 0.7 mg/dL (0.6-1.0) 0.5 mg/dL (0.6-1.0) Estimated GFR (Cockcroft-Gault) 86.9 128.1 Glucose Level 152 mg/dL (70-99) 107 mg/dL (70-99) Calcium Level 8.4 mg/dL (8.5-10.1) 7.6 mg/dL (8.5-10.1) Urine Collection Type Unknown Urine Color Yellow Urine Clarity Clear Urine pH 7.5 Urine Specific [place] 1.025 Urine Protein Negative mg/dL (NEG-TRACE) Urine Glucose (UA) Negative mg/dL (NEG) Urine Ketones (Stick) Negative mg/dL (NEG) Urine Blood Negative (NEG) Urine Nitrite Negative (NEG) Urine Bilirubin Negative (NEG) Urine Urobilinogen Dipstick 0.2 mg/dL (0.2 mg/dL) Urine Leukocyte Esterase Large (NEG) Urine RBC 6-10 /HPF (0-2) Urine WBC >40 /HPF (0-4) Urine Squamous Epithelial Cells Few /LPF Urine Bacteria Moderate /HPF (0-FEW) Segmented Neutrophils % 85 % (35-66) Band Neutrophils % 3 % (0-9) Lymphocytes % 6 % (24-48) Monocytes % 5 % (0-10) Basophils % 1 % (0-3) Platelet Estimate Adequate (ADEQUATE) UA noted left shift I have reviewed the following CT scan of the abdomen and pelvis reviewed with the radiologist Assessment/Plan sepsis UTI presacral fluid collection have asked IR to drain fluid Dr Alvarez (ID) has been consulted VIOLET LAZO MD Feb 03, 2019 10:54
[2019-02-03] MEDS ORDERED: LIDOCAINE WITH 8.4% SOD BICARB 3 ML DISP.SYRIN. ONE (11:49)
[2019-02-03] MEDS ORDERED: fentaNYL PF VIAL 100 MCG/2 ML VIAL ONE (12:16)
[2019-02-03] MEDS ORDERED: MIDAZOLAM HCL/PF 2 MG/2 ML VIAL. ONE (12:16)
[2019-02-03] MEDS ORDERED: fentaNYL PF VIAL 100 MCG/2 ML VIAL IV ONE (12:45)
[2019-02-03] MEDS ORDERED: LIDOCAINE WITH 8.4% SOD BICARB 3 ML DISP.SYRIN. IJ ONE (12:45)
[2019-02-03] MEDS ORDERED: MIDAZOLAM HCL/PF 2 MG/2 ML VIAL. IV ONE (12:45)
--- NOTE | 2019-02-03 13:00 | RAD ---
CT-guided abscess drain placement History: Posterior changes of APR surgery with pelvic pain and new presacral fluid collection on CT scan earlier today. Sedation: Moderate conscious sedation was performed under continuous monitoring by a trained independent observer using cardiopulmonary assessments for protocol. Intravenous Versed and fentanyl were administered for conscious sedation. Conscious sedation [id number] time began at 12:27 PM and ended at 12:48 PM. Procedure: Written informed consent was obtained. Health Services Rn was utilized and patient indicated over questions have been answered to her satisfaction. Patient was in a prone position on the CT table. Localization over the left buttock was performed. Maximum barrier sterile technique was used. All elements of maximal sterile barrier technique, including the use of a cap, mask, sterile gown, sterile gloves, large sterile sheet, appropriate hand hygiene, and 2% chlorhexidine for cutaneous antisepsis (or acceptable alternative antiseptic per current guidelines) were utilized. Local anesthesia with 1% lidocaine was performed. A small dermatotomy was made. A 17-gauge needle was advanced under CT guidance into the targeted air and fluid collection seen in the preSacral space. Once the needle placement was confirmed under imaging and. Material return a wire was passed and the needle and the needle was exchanged over the wire for a 12 Chilean percutaneous drain. Approximately 6 cc of. Material was aspirated and submitted for microbiology testing. The catheter was placed to bulb suction and secured to the skin using 2-0 Ethilon suture. Patient tolerated procedure well. Impression: Successful CT-guided 12 Chilean percutaneous abscess drain placement with microbiologic analysis pending
--- NOTE | 2019-02-03 15:11 | PDOC ---
Infectious Disease Note Vital Sign Vital Signs Vital Signs Date Time Temp Pulse Resp B/P (MAP) Pulse Ox O2 Delivery O2 Flow Rate FiO2 02/03/19 12:58 75 98 Nasal Cannula 2.0 02/03/19 12:47 10 02/03/19 11:40 98.5 98/51 (67) 98.5 Labs Lab Laboratory Tests Test 02/02/19 23:00 02/03/19 01:20 02/03/19 09:00 02/03/19 09:15 White Blood Count 7.4 x10^3/uL (4.0-11.0) 7.3 x10^3/uL (4.0-11.0) Red Blood Count 3.26 x10^6/uL (3.50-5.40) 3.04 x10^6/uL (3.50-5.40) Hemoglobin 9.8 g/dL (12.0-15.5) 9.0 g/dL (12.0-15.5) Hematocrit 28.6 % (36.0-47.0) 26.6 % (36.0-47.0) Mean Corpuscular Volume 88 fL (79-100) 88 fL (79-100) Mean Corpuscular Hemoglobin 30 pg (25-35) 30 pg (25-35) Mean Corpuscular Hemoglobin Concent 34 g/dL (31-37) 34 g/dL (31-37) Red Cell Distribution Width 12.1 % (11.5-14.5) 12.0 % (11.5-14.5) Platelet Count 305 x10^3/uL (140-400) 282 x10^3/uL (140-400) Neutrophils (%) (Auto) 83 % (31-73) 86 % (31-73) Lymphocytes (%) (Auto) 7 % (24-48) 6 % (24-48) Monocytes (%) (Auto) 9 % (0-9) 7 % (0-9) Eosinophils (%) (Auto) 0 % (0-3) 0 % (0-3) Basophils (%) (Auto) 0 % (0-3) 0 % (0-3) Neutrophils # (Auto) 6.2 x10^3uL (1.8-7.7) 6.3 x10^3uL (1.8-7.7) Lymphocytes # (Auto) 0.5 x10^3/uL (1.0-4.8) 0.5 x10^3/uL (1.0-4.8) Monocytes # (Auto) 0.6 x10^3/uL (0.0-1.1) 0.5 x10^3/uL (0.0-1.1) Eosinophils # (Auto) 0.0 x10^3/uL (0.0-0.7) 0.0 x10^3/uL (0.0-0.7) Basophils # (Auto) 0.0 x10^3/uL (0.0-0.2) 0.0 x10^3/uL (0.0-0.2) Sodium Level 135 mmol/L (136-145) 138 mmol/L (136-145) Potassium Level 3.2 mmol/L (3.5-5.1) 3.7 mmol/L (3.5-5.1) Chloride Level 99 mmol/L (98-107) 103 mmol/L (98-107) Carbon Dioxide Level 28 mmol/L (21-32) 26 mmol/L (21-32) Anion Gap 8 (6-14) 9 (6-14) Blood Urea Nitrogen 7 mg/dL (7-20) 5 mg/dL (7-20) Creatinine 0.7 mg/dL (0.6-1.0) 0.5 mg/dL (0.6-1.0) Estimated GFR (Cockcroft-Gault) 86.9 128.1 Glucose Level 152 mg/dL (70-99) 107 mg/dL (70-99) Calcium Level 8.4 mg/dL (8.5-10.1) 7.6 mg/dL (8.5-10.1) Urine Collection Type Unknown Urine Color Yellow Urine Clarity Clear Urine pH 7.5 Urine Specific [place] 1.025 Urine Protein Negative mg/dL (NEG-TRACE) Urine Glucose (UA) Negative mg/dL (NEG) Urine Ketones (Stick) Negative mg/dL (NEG) Urine Blood Negative (NEG) Urine Nitrite Negative (NEG) Urine Bilirubin Negative (NEG) Urine Urobilinogen Dipstick 0.2 mg/dL (0.2 mg/dL) Urine Leukocyte Esterase Large (NEG) Urine RBC 6-10 /HPF (0-2) Urine WBC >40 /HPF (0-4) Urine Squamous Epithelial Cells Few /LPF Urine Bacteria Moderate /HPF (0-FEW) Procalcitonin < 0.10 ng/mL (0.00-0.10) Segmented Neutrophils % 85 % (35-66) Band Neutrophils % 3 % (0-9) Lymphocytes % 6 % (24-48) Monocytes % 5 % (0-10) Basophils % 1 % (0-3) Platelet Estimate Adequate (ADEQUATE) Objective Assessment Presacral fluid collection w/ air (1.9 x 5.8 cm) s/p IR drain placement, 02/03. 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 The chart was reviewed. The case was discussed. Agree with the plan of care. MARK EG APRN Feb 03, 2019 15:11 THERESA SALAZAR MD Feb 03, 2019 15:14
[2019-02-03] MEDS: VANCOMYCIN PER PHARMACY MC PRN ×2 (15:59)
[2019-02-03] MEDS: VANCOMYCIN 1 GM in IV NORMAL SALINE 250ML 250 ML IV SCH (15:59)
--- NOTE | 2019-02-03 17:23 | CONS ---
DATE OF CONSULTATION: 02/02/2019 REQUESTING PHYSICIAN: Dr. Medina. REASON FOR CONSULTATION: Fever and sepsis. HISTORY OF PRESENT ILLNESS: This patient is a 54-year-old Telugu female who was diagnosed with invasive adenocarcinoma of the rectum in 08/2018. She underwent radiation and on 01/16 had an abdominoperineal resection. Over the last few days or so, she has been having fever and chills. She says she took one dose of an antibiotic (Augmentin). An abdominal/pelvis CT scan with IV contrast only revealed a presacral fluid collection containing a bubble of air and measuring 1.9 x 5.8 cm. A 12-Brazilian percutaneous drain was placed by Interventional Radiology and cultures were sent earlier today. She is currently on vancomycin and Zosyn. The patient says she is feeling a little bit better. She has been running fever still over the last 24 hours, but the chills seem to have settled down. She denies nausea, vomiting or issues with the ostomy. Except for some soreness about the drain site, she denies pain. She denies sinus or respiratory symptoms. PAST MEDICAL HISTORY: Invasive adenocarcinoma of the rectum status post radiation. Kidney stones. Colonic polyps. PAST SURGICAL HISTORY: Abdominoperineal resection, bilateral oophorectomy and appendectomy on 01/16/2019, cholecystectomy, section. SOCIAL HISTORY: The patient migrated to the [place] in [place] and later . She does not smoke or drink alcohol. She has one dog. 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 FAMILY HISTORY: Positive for diabetes, stroke and lung cancer. ALLERGIES: No known drug allergies. MEDICATIONS: Vancomycin, Zosyn, Dilaudid PROCEDURE TECH. Other medications are available and have been reviewed on the OCT. REVIEW OF SYSTEMS: Per HPI, otherwise all other review of systems is negative. PHYSICAL EXAMINATION: VITAL SIGNS: Temperature is 98.5, T-max 101.3, blood pressure 98/51, heart rate 75, respiratory rate 10, pulse oximetry is 98% on 2 liters. BMI 25. GENERAL: The patient is propped up in bed, alert and appears well. HEENT: Pupils equally round, reactive. Normal conjunctivae. Oropharynx pink and moist. No lesions. NECK: Supple. LUNGS: Clear to auscultation. HEART: S1 and S2. ABDOMEN: Mildly distended, soft, nontender with bowel sounds present. Ostomy without signs of complications. Left gluteal SAIGE drain in place with cloudy sanguineous drainage. EXTREMITIES: No gross edema or cyanosis. SKIN: Warm without generalized rash. NEUROLOGIC: Alert and responding to questions appropriately of the control room supervisor. She moves all extremities. Peripheral IV. LABORATORY DATA: Today's WBC 7.3, hemoglobin 9.0, platelets 282,000. Creatinine 0.5, BUN 5. Electrolytes are unremarkable. Glucose 107. Procalcitonin less than 0.10. Urinalysis showed wbc's greater than 40, large leukocyte esterase, moderate bacteria with a few epithelial cells. Urine and blood cultures are in process. CT abdomen/pelvis, per HPI. Also noted on the report enhancing nodule in the left pelvis, slightly larger, probable nodule metastasis; mild bilateral hydroureteronephrosis. No obstructing process seen. Chest x-ray showed mild bibasilar airspace disease, probably atelectasis. IMPRESSION: 1. Presacral abscess measuring 1.9 x 5.8 cm, status post IR drain placement on 02/03. Cultures pending. 2. Fever. 3. Rectal carcinoma status post abdominoperineal resection, bilateral oophorectomy and appendectomy on 01/16/2019. 4. Left pelvis nodule, probable nodule metastasis seen on CT. 5. Mild bilateral hydroureteronephrosis. 6. Pyuria. PLAN: Continue vancomycin and Zosyn and we will add fluconazole. Further antibiotic modifications pending culture results. Continue to monitor temperature, WBC count and renal function closely along with SAIGE drain output. She is scheduled to have a PICC placement tomorrow. Thank you, Dr. Medina, for asking us to participate in this patient's care. Should you have further questions or concerns, please call. The patient seen and examined and plan of care implemented by Dr. Theresa Salazar. THERESA SALAZAR MD DR: SHERRY/aj JOB#: [id number] / [id number]
[2019-02-03] MEDS: FLUCONAZOLE 400MG/200ML PREMIX 200 ML IV SCH (17:24)
[2019-02-04] MEDS: VANCOMYCIN 1 GM in IV NORMAL SALINE 250ML 250 ML IV SCH ×2 (00:53→12:30)
[2019-02-04] MEDS: IV NORMAL SALINE 1000ML BAG 1,000 ML IV SCH ×5 (02:15→18:15)
[2019-02-04 03:46] VITALS: BP 113/64
[2019-02-04] MEDS: PIPERACILLIN/TAZOBACTAM 3.375 GM in IV NORMAL SALINE 50ML 50 ML IV SCH ×3 (05:25→18:15)
[2019-02-04] MEDS: POTASSIUM CL 20MEQ-0.45% NACL 1,000 ML IV SCH ×2 (05:30→12:35)
[2019-02-04 05:34] LABS: BASO % 1 % (0-3); EOS % 1 % (0-3); HEMATOCRIT 27.9 % (36.0-47.0); HEMOGLOBIN 9.7 g/dL (12.0-15.5); LYMPH # 0.4 x10^3/uL (1.0-4.8); LYMPH % 6 % (24-48); MEAN CORPUSCULAR HEMOGLOBIN 30 pg (25-35); MEAN CORPUSCULAR HGB CONC 35 g/dL (31-37); MEAN CORPUSCULAR VOLUME 87 fL (79-100); MONO # 0.5 x10^3/uL (0.0-1.1); MONO % 8 % (0-9); NEUT # 5.7 x10^3uL (1.8-7.7); NEUT % 85 % (31-73); PLATELET COUNT 298 x10^3/uL (140-400); RED CELL DISTRIBUTION WIDTH 11.8 % (11.5-14.5); WHITE BLOOD COUNT 6.7 x10^3/uL (4.0-11.0)
[2019-02-04 05:51] LABS: ALBUMIN 2.1 g/dL (3.4-5.0); ALBUMIN/GLOBULIN RATIO 0.5 (1.0-1.7); CALCIUM 8.3 mg/dL (8.5-10.1); CREATININE 0.5 mg/dL (0.6-1.0); GFR 128.1; POTASSIUM 3.6 mmol/L (3.5-5.1); TOTAL BILIRUBIN 0.5 mg/dL (0.2-1.0)
[2019-02-04 07:00] VITALS: BP 104/65
--- NOTE | 2019-02-04 09:19 | PDOC ---
SURGICAL PROGRESS NOTE Subjective looks better, feels better Vital Signs Vital Signs Date Time Temp Pulse Resp B/P (MAP) Pulse Ox O2 Delivery O2 Flow Rate FiO2 02/04/19 07:00 98.6 73 18 104/65 (78) 98 Room Air 98.6 02/03/19 12:58 2.0 temp trending down I&O Intake and Output 02/04/19 07:00 Intake Total 900 ml Output Total 25 ml Balance 875 ml Intake Oral 900 ml Output Drainage Total 25 ml # Voids 2 PATIENT HAS A PEREZ: No General: Alert, No acute distress Abdomen: Other (SAIGE with serosanguineous output) Labs Laboratory Tests Test 02/02/19 23:00 02/03/19 01:20 02/03/19 09:00 02/03/19 09:15 White Blood Count 7.4 x10^3/uL (4.0-11.0) 7.3 x10^3/uL (4.0-11.0) Red Blood Count 3.26 x10^6/uL (3.50-5.40) 3.04 x10^6/uL (3.50-5.40) Hemoglobin 9.8 g/dL (12.0-15.5) 9.0 g/dL (12.0-15.5) Hematocrit 28.6 % (36.0-47.0) 26.6 % (36.0-47.0) Mean Corpuscular Volume 88 fL (79-100) 88 fL (79-100) Mean Corpuscular Hemoglobin 30 pg (25-35) 30 pg (25-35) Mean Corpuscular Hemoglobin Concent 34 g/dL (31-37) 34 g/dL (31-37) Red Cell Distribution Width 12.1 % (11.5-14.5) 12.0 % (11.5-14.5) Platelet Count 305 x10^3/uL (140-400) 282 x10^3/uL (140-400) Neutrophils (%) (Auto) 83 % (31-73) 86 % (31-73) Lymphocytes (%) (Auto) 7 % (24-48) 6 % (24-48) Monocytes (%) (Auto) 9 % (0-9) 7 % (0-9) Eosinophils (%) (Auto) 0 % (0-3) 0 % (0-3) Basophils (%) (Auto) 0 % (0-3) 0 % (0-3) Neutrophils # (Auto) 6.2 x10^3uL (1.8-7.7) 6.3 x10^3uL (1.8-7.7) Lymphocytes # (Auto) 0.5 x10^3/uL (1.0-4.8) 0.5 x10^3/uL (1.0-4.8) Monocytes # (Auto) 0.6 x10^3/uL (0.0-1.1) 0.5 x10^3/uL (0.0-1.1) Eosinophils # (Auto) 0.0 x10^3/uL (0.0-0.7) 0.0 x10^3/uL (0.0-0.7) Basophils # (Auto) 0.0 x10^3/uL (0.0-0.2) 0.0 x10^3/uL (0.0-0.2) Sodium Level 135 mmol/L (136-145) 138 mmol/L (136-145) Potassium Level 3.2 mmol/L (3.5-5.1) 3.7 mmol/L (3.5-5.1) Chloride Level 99 mmol/L (98-107) 103 mmol/L (98-107) Carbon Dioxide Level 28 mmol/L (21-32) 26 mmol/L (21-32) Anion Gap 8 (6-14) 9 (6-14) Blood Urea Nitrogen 7 mg/dL (7-20) 5 mg/dL (7-20) Creatinine 0.7 mg/dL (0.6-1.0) 0.5 mg/dL (0.6-1.0) Estimated GFR (Cockcroft-Gault) 86.9 128.1 Glucose Level 152 mg/dL (70-99) 107 mg/dL (70-99) Calcium Level 8.4 mg/dL (8.5-10.1) 7.6 mg/dL (8.5-10.1) Urine Collection Type Unknown Urine Color Yellow Urine Clarity Clear Urine pH 7.5 Urine Specific Shelby 1.025 Urine Protein Negative mg/dL (NEG-TRACE) Urine Glucose (UA) Negative mg/dL (NEG) Urine Ketones (Stick) Negative mg/dL (NEG) Urine Blood Negative (NEG) Urine Nitrite Negative (NEG) Urine Bilirubin Negative (NEG) Urine Urobilinogen Dipstick 0.2 mg/dL (0.2 mg/dL) Urine Leukocyte Esterase Large (NEG) Urine RBC 6-10 /HPF (0-2) Urine WBC >40 /HPF (0-4) Urine Squamous Epithelial Cells Few /LPF Urine Bacteria Moderate /HPF (0-FEW) Procalcitonin < 0.10 ng/mL (0.00-0.10) Segmented Neutrophils % 85 % (35-66) Band Neutrophils % 3 % (0-9) Lymphocytes % 6 % (24-48) Monocytes % 5 % (0-10) Basophils % 1 % (0-3) Platelet Estimate Adequate (ADEQUATE) Test 02/04/19 05:00 White Blood Count 6.7 x10^3/uL (4.0-11.0) Red Blood Count 3.20 x10^6/uL (3.50-5.40) Hemoglobin 9.7 g/dL (12.0-15.5) Hematocrit 27.9 % (36.0-47.0) Mean Corpuscular Volume 87 fL (79-100) Mean Corpuscular Hemoglobin 30 pg (25-35) Mean Corpuscular Hemoglobin Concent 35 g/dL (31-37) Red Cell Distribution Width 11.8 % (11.5-14.5) Platelet Count 298 x10^3/uL (140-400) Neutrophils (%) (Auto) 85 % (31-73) Lymphocytes (%) (Auto) 6 % (24-48) Monocytes (%) (Auto) 8 % (0-9) Eosinophils (%) (Auto) 1 % (0-3) Basophils (%) (Auto) 1 % (0-3) Neutrophils # (Auto) 5.7 x10^3uL (1.8-7.7) Lymphocytes # (Auto) 0.4 x10^3/uL (1.0-4.8) Monocytes # (Auto) 0.5 x10^3/uL (0.0-1.1) Eosinophils # (Auto) 0.0 x10^3/uL (0.0-0.7) Basophils # (Auto) 0.0 x10^3/uL (0.0-0.2) Sodium Level 138 mmol/L (136-145) Potassium Level 3.6 mmol/L (3.5-5.1) Chloride Level 103 mmol/L (98-107) Carbon Dioxide Level 23 mmol/L (21-32) Anion Gap 12 (6-14) Blood Urea Nitrogen 8 mg/dL (7-20) Creatinine 0.5 mg/dL (0.6-1.0) Estimated GFR (Cockcroft-Gault) 128.1 BUN/Creatinine Ratio 16 (6-20) Glucose Level 74 mg/dL (70-99) Calcium Level 8.3 mg/dL (8.5-10.1) Total Bilirubin 0.5 mg/dL (0.2-1.0) Aspartate Amino Transf (AST/SGOT) 16 U/L (15-37) Alanine Aminotransferase (ALT/SGPT) 20 U/L (14-59) Alkaline Phosphatase 73 U/L (46-116) Total Protein 6.0 g/dL (6.4-8.2) Albumin 2.1 g/dL (3.4-5.0) Albumin/Globulin Ratio 0.5 (1.0-1.7) Laboratory Tests Test 02/04/19 05:00 White Blood Count 6.7 x10^3/uL (4.0-11.0) Red Blood Count 3.20 x10^6/uL (3.50-5.40) Hemoglobin 9.7 g/dL (12.0-15.5) Hematocrit 27.9 % (36.0-47.0) Mean Corpuscular Volume 87 fL (79-100) Mean Corpuscular Hemoglobin 30 pg (25-35) Mean Corpuscular Hemoglobin Concent 35 g/dL (31-37) Red Cell Distribution Width 11.8 % (11.5-14.5) Platelet Count 298 x10^3/uL (140-400) Neutrophils (%) (Auto) 85 % (31-73) Lymphocytes (%) (Auto) 6 % (24-48) Monocytes (%) (Auto) 8 % (0-9) Eosinophils (%) (Auto) 1 % (0-3) Basophils (%) (Auto) 1 % (0-3) Neutrophils # (Auto) 5.7 x10^3uL (1.8-7.7) Lymphocytes # (Auto) 0.4 x10^3/uL (1.0-4.8) Monocytes # (Auto) 0.5 x10^3/uL (0.0-1.1) Eosinophils # (Auto) 0.0 x10^3/uL (0.0-0.7) Basophils # (Auto) 0.0 x10^3/uL (0.0-0.2) Sodium Level 138 mmol/L (136-145) Potassium Level 3.6 mmol/L (3.5-5.1) Chloride Level 103 mmol/L (98-107) Carbon Dioxide Level 23 mmol/L (21-32) Anion Gap 12 (6-14) Blood Urea Nitrogen 8 mg/dL (7-20) Creatinine 0.5 mg/dL (0.6-1.0) Estimated GFR (Cockcroft-Gault) 128.1 BUN/Creatinine Ratio 16 (6-20) Glucose Level 74 mg/dL (70-99) Calcium Level 8.3 mg/dL (8.5-10.1) Total Bilirubin 0.5 mg/dL (0.2-1.0) Aspartate Amino Transf (AST/SGOT) 16 U/L (15-37) Alanine Aminotransferase (ALT/SGPT) 20 U/L (14-59) Alkaline Phosphatase 73 U/L (46-116) Total Protein 6.0 g/dL (6.4-8.2) Albumin 2.1 g/dL (3.4-5.0) Albumin/Globulin Ratio 0.5 (1.0-1.7) Assessment/Plan s/p pelvic drain placement continue abx advance diet VIOLET LAZO MD Feb 04, 2019 09:19
--- NOTE | 2019-02-04 09:27 | PDOC ---
Infectious Disease Note Subjective: Subjective pt says feels ok abdo pain is under control no f/c/n/v/d ROS: ROS Negative except for above. Vital Signs: Vital Signs Vital Signs Date Time Temp Pulse Resp B/P (MAP) Pulse Ox O2 Delivery O2 Flow Rate FiO2 02/04/19 07:00 98.6 73 18 104/65 (78) 98 Room Air 98.6 02/03/19 12:58 2.0 Physical Exam: PHYSICAL EXAM GENERAL: The patient is propped up in bed, alert HEENT: Pupils equally round, reactive. Normal conjunctivae. Oropharynx pink and moist. No lesions. NECK: Supple. LUNGS: Clear to auscultation. HEART: S1 and S2. ABDOMEN: Mildly distended, soft, nontender with bowel sounds present. Ostomy without signs of complications. Left gluteal SAIGE drain in place with cloudy sanguineous drainage. EXTREMITIES: No gross edema or cyanosis. SKIN: Warm without generalized rash. 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 She moves all extremities. Peripheral IV. Medications: Inpatient Meds: Current Medications Medications (Trade) Dose Ordered Sig/Dhruv Start Time Stop Time Status Last Admin Dose Admin Acetaminophen (Tylenol) 650 mg PRN Q6HRS PRN 02/03/19 09:30 UNV Fentanyl Citrate (Fentanyl 2ml Vial) 100 mcg 1X ONCE 02/03/19 12:45 02/03/19 12:46 DC 02/03/19 12:47 100 MCG Fluconazole/ Sodium Chloride 200 ml @ 100 mls/hr Q24H 02/03/19 16:00 02/03/19 17:24 100 MLS/HR Hydromorphone HCl 30 ml @ 0 mls/hr CONT PRN PRN 02/02/19 23:00 02/03/19 00:01 0 MLS/HR Hydromorphone HCl (Dilaudid) 0.5 mg PRN Q3HRS PRN 02/02/19 22:15 02/02/19 22:59 0.5 MG Info (CONTRAST GIVEN -- Rx MONITORING) 1 each PRN DAILY PRN 02/03/19 00:30 02/05/19 00:29 Iohexol (Omnipaque 300 Mg/ml) 75 ml 1X ONCE 02/03/19 00:15 02/03/19 00:16 DC 02/03/19 00:42 75 ML Lidocaine/Sodium Bicarbonate (Buffered Lidocaine 1%) 9 ml 1X ONCE 02/03/19 12:45 02/03/19 12:46 DC 02/03/19 12:46 9 ML Midazolam HCl (Versed) 2 mg 1X ONCE 02/03/19 12:45 02/03/19 12:46 DC 02/03/19 12:47 2 MG Piperacillin Sod/ Tazobactam Sod (Zosyn Per Pharmacy) 1 each PRN DAILY PRN 02/02/19 23:00 Piperacillin Sod/ Tazobactam Sod 3.375 gm/Sodium Chloride 50 ml @ 100 mls/hr Q6HRS 02/03/19 06:00 02/04/19 05:25 100 MLS/HR Potassium Chloride/Sodium Chloride 1,000 ml @ 50 mls/hr Q20H 02/02/19 23:30 02/03/19 19:53 100 MLS/HR Sodium Chloride 1,000 ml @ 250 mls/hr Q4H 02/02/19 22:15 02/02/19 22:59 250 MLS/HR Vancomycin HCl (Vanco Per Pharmacy) 1 each PRN DAILY PRN 02/02/19 23:30 02/03/19 15:59 1 EACH Vancomycin HCl (Vancomycin Trough Level) 1 each 1X ONCE 02/04/19 12:00 02/04/19 12:01 Vancomycin HCl 1.75 gm/Sodium Chloride 500 ml @ 250 mls/hr 1X ONCE 02/02/19 23:45 02/03/19 01:44 DC 02/03/19 00:50 250 MLS/HR Vancomycin HCl 1 gm/Sodium Chloride 250 ml @ 250 mls/hr Q12H 02/03/19 12:30 02/04/19 00:53 250 MLS/HR Labs: Lab Laboratory Tests Test 02/04/19 05:00 White Blood Count 6.7 x10^3/uL (4.0-11.0) Red Blood Count 3.20 x10^6/uL (3.50-5.40) Hemoglobin 9.7 g/dL (12.0-15.5) Hematocrit 27.9 % (36.0-47.0) Mean Corpuscular Volume 87 fL (79-100) Mean Corpuscular Hemoglobin 30 pg (25-35) Mean Corpuscular Hemoglobin Concent 35 g/dL (31-37) Red Cell Distribution Width 11.8 % (11.5-14.5) Platelet Count 298 x10^3/uL (140-400) Neutrophils (%) (Auto) 85 % (31-73) Lymphocytes (%) (Auto) 6 % (24-48) Monocytes (%) (Auto) 8 % (0-9) Eosinophils (%) (Auto) 1 % (0-3) Basophils (%) (Auto) 1 % (0-3) Neutrophils # (Auto) 5.7 x10^3uL (1.8-7.7) Lymphocytes # (Auto) 0.4 x10^3/uL (1.0-4.8) Monocytes # (Auto) 0.5 x10^3/uL (0.0-1.1) Eosinophils # (Auto) 0.0 x10^3/uL (0.0-0.7) Basophils # (Auto) 0.0 x10^3/uL (0.0-0.2) Sodium Level 138 mmol/L (136-145) Potassium Level 3.6 mmol/L (3.5-5.1) Chloride Level 103 mmol/L (98-107) Carbon Dioxide Level 23 mmol/L (21-32) Anion Gap 12 (6-14) Blood Urea Nitrogen 8 mg/dL (7-20) Creatinine 0.5 mg/dL (0.6-1.0) Estimated GFR (Cockcroft-Gault) 128.1 BUN/Creatinine Ratio 16 (6-20) Glucose Level 74 mg/dL (70-99) Calcium Level 8.3 mg/dL (8.5-10.1) Total Bilirubin 0.5 mg/dL (0.2-1.0) Aspartate Amino Transf (AST/SGOT) 16 U/L (15-37) Alanine Aminotransferase (ALT/SGPT) 20 U/L (14-59) Alkaline Phosphatase 73 U/L (46-116) Total Protein 6.0 g/dL (6.4-8.2) Albumin 2.1 g/dL (3.4-5.0) Albumin/Globulin Ratio 0.5 (1.0-1.7) Objective: Assessment: 1. Presacral abscess measuring 1.9 x 5.8 cm, status post IR drain placement on 02/03. Cultures pending. 2. Fever. 3. Rectal carcinoma status post abdominoperineal resection, bilateral oophorectomy and appendectomy on 01/16/2019. 4. Left pelvis nodule, probable nodule metastasis seen on CT. 5. Mild bilateral hydroureteronephrosis. 6. Pyuria. Plan: Plan of Care Continue vancomycin, Zosyn, fluconazole. Further antibiotic modifications pending culture results. Continue to monitor temperature, WBC count and renal function closely along with SAIGE drain output. STEPHANE WALKER MD Feb 04, 2019 09:27
--- NOTE | 2019-02-04 10:56 | NUR ---
Allergies and reactions INR N/A BUN 8 Cr 0.5 Platelets 298 Blood culture done yes blood culture results no growth adter 1 day Order Verified yes Consent signed yes Previous PICC placement N/A Past Medical/Surgical history and current diagnosis reviewed yes Patient Medical /Surgical History Related to PICC line placement Cancer Infectious Disease consult Septicemia/Bacteremia Special considerations for PICC line placement None PICC placement indication [facility] antibiotic usage, Poor peripheral intravenous access name of PICC Nurse Boone Cobos RN
[2019-02-04 11:00] VITALS: BP 100/65
--- NOTE | 2019-02-04 11:33 | NUR ---
Procedure: Following complete explanation of the PICC procedure including the indications, risks, and potential complications, informed consent was obtained. The possibility for infection was discussed along with signs, symptoms, and prevention. All the questions were answered. Written and verbal patient education was provided. Hand hygiene performed. Standardized central line checklist was utilized. The patient was placed in the supine position, the arm was prepped with chlorhexidine and patient draped with maximum sterile barrier. 2 mL 1% lidocaine was infiltrated into the skin to provide local anesthesia. A thorough assessment of right upper extremity completed. Using real-time ultrasound guidance and standardized micro puncture set, the Basilic vein was punctured and a peel away sheath was placed using the modified Seldinger technique. A tip location device was used to ensure adequate catheter placement. The catheter was secured using a securement device and an antimicrobial patch was applied directly on the insertion site followed by a transparent dressing. All ports withdraw blood and flush without resistance. Patient tolerated the procedure without apparent complication(s). Single Lumen Power PICC placement successful and uncomplicated. Placement verified by EKG tip confirmation system and/or chest x-ray. Tip located in the CAJ/SVC Complications: None Trimmed at 42cm with 1cm visible.
--- NOTE | 2019-02-04 12:07 | NUR ---
SW following pt for anticipated dc needs. Chart reviewed and discussed with RN. Pt is from home and PT/OT is pending. ID following, Pt getting a PICC line today and on INFORMATION TECHNOLOGY DIRECTOR pump. No discharge recommendation noted at this time. Will continue to follow.
[2019-02-04 13:05] LABS: VANC TR 5.8 mcg/mL (10.0-20.0)
[2019-02-04] MEDS: VANCOMYCIN PER PHARMACY MC PRN ×2 (14:09→14:10)
--- NOTE | 2019-02-04 14:10 | NUR ---
Pharmacy Vancomycin Dosing Note S: Consulted to monitor and dose vancomycin started 02/03/19. O: GREER OLVERA is a 54 year old F with intra-abdominal abscess. Other Antibiotics: ZOSYN 3.375GM IV Q6H LABS: Last BUN: 8 Last Creatinine: 0.5 Creatinine Clearance: > 100 mL/min Last WBC: 6.7 Last Procalcitonin: <0.10 Tmax (past 24 hours): 100.1 Microbiology: BLOOD CX (02/02): NGTD ABSCESS CX PENDING Drug Levels: Last Trough level: 5.8 on 02/04/19 at 1230 Last dose given 02/03/19 at 0030 A: Patient is receiving vancomycin 1000 mg IV q12hrs. A trough of 5.8 mcg/ml is below goal range. Patient's renal function is stable. Due to location of abscess and excellent renal function, will aim for more aggressive trough. P: 1. Change to Vancomycin 1250 mg IV q8h 2. Follow up trough in 5 - 7 days if therapy persists 3. Pharmacy will continue to monitor, follow and adjust therapy as needed. CURLY MUNIZ [facility], 02/04/19 [id number]
[2019-02-04 15:00] VITALS: BP 114/67
[2019-02-04] MEDS: FLUCONAZOLE 400MG/200ML PREMIX 200 ML IV SCH (16:10)
[2019-02-04 19:40] VITALS: BP 105/66
[2019-02-04] MEDS: VANCOMYCIN 1.25 GM in IV NORMAL SALINE 250ML 250 ML IV SCH (21:29)
[2019-02-04 23:45] VITALS: BP 106/65
[2019-02-05] MEDS: PIPERACILLIN/TAZOBACTAM 3.375 GM in IV NORMAL SALINE 50ML 50 ML IV SCH ×4 (00:36→20:01)
[2019-02-05] MEDS: IV NORMAL SALINE 1000ML BAG 1,000 ML IV SCH ×3 (00:42→06:15)
[2019-02-05 03:45] VITALS: BP 102/68
[2019-02-05] MEDS: VANCOMYCIN 1.25 GM in IV NORMAL SALINE 250ML 250 ML IV SCH ×3 (04:03→20:00)
[2019-02-05 07:00] VITALS: BP 113/60
--- NOTE | 2019-02-05 09:49 | PDOC ---
Infectious Disease Note Subjective: Subjective pt says feels ok abdo pain is under control no f/c/n/v/d ROS: ROS Negative except for above. Vital Signs: Vital Signs Vital Signs Date Time Temp Pulse Resp B/P (MAP) Pulse Ox O2 Delivery O2 Flow Rate FiO2 02/05/19 07:00 98.4 70 18 113/60 (77) 97 Room Air 98.4 02/04/19 08:00 2.0 Physical Exam: PHYSICAL EXAM GENERAL: The patient is propped up in bed, alert HEENT: Pupils equally round, reactive. Normal conjunctivae. Oropharynx pink and moist. No lesions. NECK: Supple. LUNGS: Clear to auscultation. HEART: S1 and S2. ABDOMEN: Mildly distended, soft, nontender with bowel sounds present. Ostomy without signs of complications. Left gluteal SAIGE drain in place with cloudy sanguineous drainage. EXTREMITIES: No gross edema or cyanosis. SKIN: Warm without generalized rash. 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 She moves all extremities. Peripheral IV. Medications: Inpatient Meds: Current Medications Medications (Trade) Dose Ordered Sig/Dhruv Start Time Stop Time Status Last Admin Dose Admin Acetaminophen (Tylenol) 650 mg PRN Q6HRS PRN 02/03/19 09:30 UNV Fentanyl Citrate (Fentanyl 2ml Vial) 100 mcg 1X ONCE 02/03/19 12:45 02/03/19 12:46 DC 02/03/19 12:47 100 MCG Fluconazole/ Sodium Chloride 200 ml @ 100 mls/hr Q24H 02/03/19 16:00 02/04/19 16:10 100 MLS/HR Hydromorphone HCl 30 ml @ 0 mls/hr CONT PRN PRN 02/02/19 23:00 02/03/19 00:01 0 MLS/HR Hydromorphone HCl (Dilaudid) 0.5 mg PRN Q3HRS PRN 02/02/19 22:15 02/02/19 22:59 0.5 MG Info (CONTRAST GIVEN -- Rx MONITORING) 1 each PRN DAILY PRN 02/03/19 00:30 02/05/19 00:29 DC Iohexol (Omnipaque 300 Mg/ml) 75 ml 1X ONCE 02/03/19 00:15 6/16/19 00:16 DC 02/03/19 00:42 75 ML Lidocaine/Sodium Bicarbonate (Buffered Lidocaine 1%) 9 ml 1X ONCE 02/03/19 12:45 02/03/19 12:46 DC 02/03/19 12:46 9 ML Midazolam HCl (Versed) 2 mg 1X ONCE 02/03/19 12:45 02/03/19 12:46 DC 02/03/19 12:47 2 MG Piperacillin Sod/ Tazobactam Sod (Zosyn Per Pharmacy) 1 each PRN DAILY PRN 02/02/19 23:00 02/04/19 14:06 DC Piperacillin Sod/ Tazobactam Sod 3.375 gm/Sodium Chloride 50 ml @ 100 mls/hr Q6HRS 02/03/19 06:00 02/05/19 06:08 100 MLS/HR Potassium Chloride/Sodium Chloride 1,000 ml @ 50 mls/hr Q20H 02/02/19 23:30 02/04/19 12:35 50 MLS/HR Sodium Chloride 1,000 ml @ 250 mls/hr Q4H 02/02/19 22:15 02/05/19 04:16 250 MLS/HR Vancomycin HCl (Vanco Per Pharmacy) 1 each PRN DAILY PRN 02/02/19 23:30 02/04/19 14:10 1 EACH Vancomycin HCl (Vancomycin Trough Level) 1 each 1X ONCE 02/04/19 12:00 02/04/19 12:01 DC 02/04/19 12:00 1 EACH Vancomycin HCl 1.25 gm/Sodium Chloride 250 ml @ 166.667 mls/hr Q8H 02/04/19 20:00 02/05/19 04:03 166.667 MLS/HR Vancomycin HCl 1.75 gm/Sodium Chloride 500 ml @ 250 mls/hr 1X ONCE 02/02/19 23:45 02/03/19 01:44 DC 02/03/19 00:50 250 MLS/HR Vancomycin HCl 1 gm/Sodium Chloride 250 ml @ 250 mls/hr Q12H 02/03/19 12:30 02/04/19 14:05 DC 02/04/19 12:30 250 MLS/HR Labs: Lab Laboratory Tests Test 02/04/19 12:30 Vancomycin Level Trough 5.8 mcg/mL (10.0-20.0) Vancomycin Last Dose Date 02/04/19 Vancomycin Last Dose Time 003 Micro RUN DATE: 02/04/19 PAGE 1 RUN TIME: 2111 [facility] [address] [place] [address] Shad Roldan M.D., Metal Miner PATIENT: GREER OLVERA ACCT: [id number] LOC: [address] [place] [address] U: [id number] AGE/SX: 54/F ROOM: [facility] RE02/02/[address]: VIOLET LAZO MD : 1965 BED: 1 DIS: STATUS: ADM IN TLOC: SPEC #: [id number] RUTH: 02/03/19 STATUS: COMP REQ #: [id number] RECD: 02/03/[address]: VIOLET LAZO MD SOURCE: URINE CC ENTR: 02/03/[address]: JOSE LUIS FORBES SPDESC: ORDERED: URINE CULTURE ------ Procedure Result URINE CULTURE Final Final report URINE CULTURE RES 1 Final No growth Performed at: DA - [facility] [address] [facility] [address] [facility] [address], [place], [place] [id number] Jig Maker: LIZETT Valencia MD, Phone: [phone] Objective: Assessment: 1. Presacral abscess measuring 1.9 x 5.8 cm, status post IR drain placement on 02/03. Cultures pending. 2. Fever.improving 3. Rectal carcinoma status post abdominoperineal resection, bilateral oophorectomy and appendectomy on 01/16/2019. 4. Left pelvis nodule, probable nodule metastasis seen on CT. 5. Mild bilateral hydroureteronephrosis. 6. Pyuria. UC neg so far Plan: Plan of Care Continue vancomycin, Zosyn, fluconazole. Further antibiotic modifications pending culture results. Continue to monitor temperature, WBC count and renal function closely along with SAIGE drain output. STEPHANE WALKER MD Feb 05, 2019 09:49
--- NOTE | 2019-02-05 10:47 | PDOC ---
SURGICAL PROGRESS NOTE Subjective feeling better eating lunch Vital Signs Vital Signs Date Time Temp Pulse Resp B/P (MAP) Pulse Ox O2 Delivery O2 Flow Rate FiO2 02/05/19 07:00 98.4 70 18 113/60 (77) 97 Room Air 98.4 02/04/19 08:00 2.0 I&O Intake and Output 02/05/19 06:59 Output Total 20 ml Balance -20 ml Output Drainage Total 10 ml Other 10 ml # Voids 3 General: Alert, Oriented X3, Cooperative, No acute distress Abdomen: Soft, Other (ostomy in place, drain to gluteal ) Labs Laboratory Tests Test 02/04/19 05:00 02/04/19 12:30 White Blood Count 6.7 x10^3/uL (4.0-11.0) Red Blood Count 3.20 x10^6/uL (3.50-5.40) Hemoglobin 9.7 g/dL (12.0-15.5) Hematocrit 27.9 % (36.0-47.0) Mean Corpuscular Volume 87 fL (79-100) Mean Corpuscular Hemoglobin 30 pg (25-35) Mean Corpuscular Hemoglobin Concent 35 g/dL (31-37) Red Cell Distribution Width 11.8 % (11.5-14.5) Platelet Count 298 x10^3/uL (140-400) Neutrophils (%) (Auto) 85 % (31-73) Lymphocytes (%) (Auto) 6 % (24-48) Monocytes (%) (Auto) 8 % (0-9) Eosinophils (%) (Auto) 1 % (0-3) Basophils (%) (Auto) 1 % (0-3) Neutrophils # (Auto) 5.7 x10^3uL (1.8-7.7) Lymphocytes # (Auto) 0.4 x10^3/uL (1.0-4.8) Monocytes # (Auto) 0.5 x10^3/uL (0.0-1.1) Eosinophils # (Auto) 0.0 x10^3/uL (0.0-0.7) Basophils # (Auto) 0.0 x10^3/uL (0.0-0.2) Sodium Level 138 mmol/L (136-145) Potassium Level 3.6 mmol/L (3.5-5.1) Chloride Level 103 mmol/L (98-107) Carbon Dioxide Level 23 mmol/L (21-32) Anion Gap 12 (6-14) Blood Urea Nitrogen 8 mg/dL (7-20) Creatinine 0.5 mg/dL (0.6-1.0) Estimated GFR (Cockcroft-Gault) 128.1 BUN/Creatinine Ratio 16 (6-20) Glucose Level 74 mg/dL (70-99) Calcium Level 8.3 mg/dL (8.5-10.1) Total Bilirubin 0.5 mg/dL (0.2-1.0) Aspartate Amino Transf (AST/SGOT) 16 U/L (15-37) Alanine Aminotransferase (ALT/SGPT) 20 U/L (14-59) Alkaline Phosphatase 73 U/L (46-116) Total Protein 6.0 g/dL (6.4-8.2) Albumin 2.1 g/dL (3.4-5.0) Albumin/Globulin Ratio 0.5 (1.0-1.7) Vancomycin Level Trough 5.8 mcg/mL (10.0-20.0) Vancomycin Last Dose Date 02/04/19 Vancomycin Last Dose Time 29 Laboratory Tests Test 02/04/19 12:30 Vancomycin Level Trough 5.8 mcg/mL (10.0-20.0) Vancomycin Last Dose Date 02/04/19 Vancomycin Last Dose Time 29 Assessment/Plan continue drain, abx CHELSIE BOURNE SWITCHBOARD OPERATOR Feb 05, 2019 10:47
[2019-02-05 11:00] VITALS: BP 104/62
[2019-02-05] MEDS ORDERED: HYDROmorphone 2 MG/ML VIAL IV PRN (13:30)
[2019-02-05] MEDS: HYDROcodone/APAP 5/325MG 1 TAB TABLET PO PRN ×2 (14:44→21:31)
[2019-02-05 15:00] VITALS: BP 94/67
[2019-02-05] MEDS: VANCOMYCIN PER PHARMACY MC PRN (16:18)
[2019-02-05] MEDS: POTASSIUM CL 20MEQ-0.45% NACL 1,000 ML IV SCH (17:25)
[2019-02-05] MEDS: FLUCONAZOLE 400MG/200ML PREMIX 200 ML IV SCH (17:25)
--- NOTE | 2019-02-05 18:09 | NUR ---
Wound/Ostomy Care Pt seen per her request for colostomy bag change. Pt is [facility] from previous admission and new ostomy teaching a few weeks ago. Pt is stating that her bag needs changed and is too small for her stoma. Current bag removed by pt and peristomal skin cleaned by her, as well. Peristomal skin is intact, but slightly pink and macerated, stoma powder applied. Pt was an active participant in cutting and applying new appliance and bag. Pt has some additional questions that are somewhat lost in translation, will f/u with pt tomorrow when her friends/family are present, pt pleased and v/u.
[2019-02-05 19:40] VITALS: BP 102/68
[2019-02-05 23:00] VITALS: BP 107/65
[2019-02-06] MEDS: PIPERACILLIN/TAZOBACTAM 3.375 GM in IV NORMAL SALINE 50ML 50 ML IV SCH ×4 (00:09→17:56)
[2019-02-06] MEDS: HYDROcodone/APAP 5/325MG 1 TAB TABLET PO PRN ×5 (02:09→20:01)
[2019-02-06 03:00] VITALS: BP 106/68
[2019-02-06] MEDS: VANCOMYCIN 1.25 GM in IV NORMAL SALINE 250ML 250 ML IV SCH (03:51)
[2019-02-06 06:39] LABS: CREATININE 0.6 mg/dL (0.6-1.0); GFR 103.8; POTASSIUM 3.7 mmol/L (3.5-5.1)
[2019-02-06 07:00] VITALS: BP 102/58
--- NOTE | 2019-02-06 09:20 | PDOC ---
CHELSIE [employer]OURNE [employer] 02/06/19 0920: SURGICAL PROGRESS NOTE Subjective reports pain at drain site increased vaginal drainage Vital Signs Vital Signs Date Time Temp Pulse Resp B/P (MAP) Pulse Ox O2 Delivery O2 Flow Rate FiO2 02/06/19 07:35 Room Air 02/06/19 07:00 98.1 71 17 102/58 (73) 98 98.1 02/05/19 20:00 2.0 I&O Intake and Output 02/06/19 06:59 Intake Total 1290 ml Output Total 200 ml Balance 1090 ml Intake Oral 440 ml IV Total 850 ml Output Stool Total 200 ml # Voids 3 General: Alert, Oriented X3, Cooperative, No acute distress Abdomen: Soft, Other (drain serosang) Labs Laboratory Tests Test 02/04/19 12:30 02/06/19 06:20 Vancomycin Level Trough 5.8 mcg/mL (10.0-20.0) Vancomycin Last Dose Date 02/04/19 Vancomycin Last Dose Time 0030 Potassium Level 3.7 mmol/L (3.5-5.1) Creatinine 0.6 mg/dL (0.6-1.0) Estimated GFR (Cockcroft-Gault) 103.8 Laboratory Tests Test 02/06/19 06:20 Potassium Level 3.7 mmol/L (3.5-5.1) Creatinine 0.6 mg/dL (0.6-1.0) Estimated GFR (Cockcroft-Gault) 103.8 Assessment/Plan decreasing drain output will review with VIOLET Samson MD 02/06/19 1606: SURGICAL PROGRESS NOTE Assessment/Plan pt seen friends in room translate SAIGE with small amount of serosanguineous output having vaginal drainage home when able to switch to po abx NADIR CHELSIE [employer]NE [employer] Feb 06, 2019 09:20 VIOLET LAZO MD Feb 06, 2019 16:06
--- NOTE | 2019-02-06 09:31 | PDOC ---
Infectious Disease Note Subjective: Subjective pt says feels ok abdo pain is under control no f/c/n/v/d ROS: ROS Negative except for above. Vital Signs: Vital Signs Vital Signs Date Time Temp Pulse Resp B/P (MAP) Pulse Ox O2 Delivery O2 Flow Rate FiO2 02/06/19 07:35 Room Air 02/06/19 07:00 98.1 71 17 102/58 (73) 98 98.1 02/05/19 20:00 2.0 Physical Exam: PHYSICAL EXAM GENERAL: The patient is propped up in bed, alert HEENT: Pupils equally round, reactive. Normal conjunctivae. Oropharynx pink and moist. No lesions. NECK: Supple. LUNGS: Clear to auscultation. HEART: S1 and S2. ABDOMEN: Mildly distended, soft, nontender with bowel sounds present. Ostomy without signs of complications. Left gluteal SAIGE drain in place with cloudy sanguineous drainage. EXTREMITIES: No gross edema or cyanosis. SKIN: Warm without generalized rash. NEUROLOGIC: Alert and responding to questions appropriately of the brick cleaner. She moves all extremities. Peripheral IV. Medications: Inpatient Meds: Current Medications Medications (Trade) Dose Ordered Sig/Dhruv Start Time Stop Time Status Last Admin Dose Admin Acetaminophen (Tylenol) 650 mg PRN Q6HRS PRN 02/03/19 09:30 UNV Acetaminophen/ Hydrocodone Bitart (Lortab 5/325) 1 tab PRN Q4HRS PRN 02/05/19 13:30 02/06/19 06:32 1 TAB Fentanyl Citrate (Fentanyl 2ml Vial) 100 mcg 1X ONCE 02/03/19 12:45 02/03/19 12:46 DC 02/03/19 12:47 100 MCG Fluconazole/ Sodium Chloride 200 ml @ 100 mls/hr Q24H 02/03/19 16:00 02/05/19 17:25 100 MLS/HR Hydromorphone HCl (Dilaudid) 0.5 mg PRN Q4HRS PRN 02/05/19 13:30 Info (CONTRAST GIVEN -- Rx MONITORING) 1 each PRN DAILY PRN 02/03/19 00:30 02/05/19 00:29 DC Iohexol (Omnipaque 300 Mg/ml) 75 ml 1X ONCE 02/03/19 00:15 02/03/19 00:16 DC 02/03/19 00:42 75 ML Lidocaine/Sodium Bicarbonate (Buffered Lidocaine 1%) 9 ml 1X ONCE 02/03/19 12:45 02/03/19 12:46 DC 02/03/19 12:46 9 ML Midazolam HCl (Versed) 2 mg 1X ONCE 02/03/19 12:45 02/03/19 12:46 DC 02/03/19 12:47 2 MG Piperacillin Sod/ Tazobactam Sod (Zosyn Per Pharmacy) 1 each PRN DAILY PRN 02/02/19 23:00 02/04/19 14:06 DC Piperacillin Sod/ Tazobactam Sod 3.375 gm/Sodium Chloride 50 ml @ 100 mls/hr Q6HRS 02/03/19 06:00 02/06/19 05:33 100 MLS/HR Potassium Chloride/Sodium Chloride 1,000 ml @ 50 mls/hr Q20H 02/02/19 23:30 02/05/19 17:25 50 MLS/HR Sodium Chloride 1,000 ml @ 250 mls/hr Q4H 02/02/19 22:15 02/05/19 13:23 DC 02/05/19 04:16 250 MLS/HR Vancomycin HCl (Vanco Per Pharmacy) 1 each PRN DAILY PRN 02/02/19 23:30 02/05/19 16:18 1 EACH Vancomycin HCl (Vancomycin Trough Level) 1 each 1X ONCE 02/04/19 12:00 02/04/19 12:01 DC 02/04/19 12:00 1 EACH Vancomycin HCl 1.25 gm/Sodium Chloride 250 ml @ 166.667 mls/hr Q8H 02/04/19 20:00 02/06/19 03:51 166.667 MLS/HR Vancomycin HCl 1.75 gm/Sodium Chloride 500 ml @ 250 mls/hr 1X ONCE 02/02/19 23:45 02/03/19 01:44 DC 02/03/19 00:50 250 MLS/HR Vancomycin HCl 1 gm/Sodium Chloride 250 ml @ 250 mls/hr Q12H 02/03/19 12:30 02/04/19 14:05 DC 02/04/19 12:30 250 MLS/HR Labs: Lab Laboratory Tests Test 02/06/19 06:20 Potassium Level 3.7 mmol/L (3.5-5.1) Creatinine 0.6 mg/dL (0.6-1.0) Estimated GFR (Cockcroft-Gault) 103.8 Micro RUN DATE: 02/04/19 PAGE 1 RUN TIME: 2111 [facility] [address] [place] [address] Shad Roldan M.D., Shelter Advocate PATIENT: GREER OLVERA ACCT: [id number] LOC: [address] [place] [address] U: [id number] AGE/SX: 54/F ROOM: [facility] RE02/02/[address]: VIOLET LAZO MD : 1965 BED: 1 DIS: STATUS: ADM IN TLOC: ------- SPEC #: [id number] RUTH: 02/03/19 STATUS: COMP REQ #: [id number] RECD: 02/03/[address]: VIOLET LAZO MD SOURCE: URINE CC ENTR: 02/03/19 TERESA DENNIS: JOSE LUIS REVELESC: ORDERED: URINE CULTURE Procedure Result URINE CULTURE Final Final report URINE CULTURE RES 1 Final No growth Performed at: [place] - [facility] [address], [place], [place] [id number] Clinical Support Associate: LIZETT Valencia MD, Phone: [phone] Objective: Assessment: 1. Presacral abscess measuring 1.9 x 5.8 cm, status post IR drain placement on 02/03. Cultures still pending. 2. Fever.improving 3. Rectal carcinoma status post abdominoperineal resection, bilateral oophorectomy and appendectomy on 01/16/2019. 4. Left pelvis nodule, probable nodule metastasis seen on CT. 5. Mild bilateral hydroureteronephrosis. 6. Pyuria. UC neg so far Plan: Plan of Care Continue Zosyn, fluconazole. DC iv vanc start zyvox Further antibiotic modifications pending culture results. Continue to monitor temperature, WBC count and renal function closely along with SAIGE drain output. STEPHANE WALKER MD Feb 06, 2019 09:31
[2019-02-06] MEDS: LINEZOLID 600 MG TABLET PO SCH ×2 (10:43→21:48)
[2019-02-06 11:00] VITALS: BP 98/57
--- NOTE | 2019-02-06 11:30 | NUR ---
Wound/Ostomy Care Pt seen for additional ostomy education, pt's friend, "Skip" at bedside to help translate. Provided pt education/teaching re: washing Ostomy bag out, all questions answered at this time. Pt encouraged to page [facility] with any additional questions.
[2019-02-06 15:00] VITALS: BP 100/43
[2019-02-06] MEDS: POTASSIUM CL 20MEQ-0.45% NACL 1,000 ML IV SCH (15:52)
[2019-02-06] MEDS: FLUCONAZOLE 400MG/200ML PREMIX 200 ML IV SCH (15:52)
[2019-02-06 19:00] VITALS: BP 97/58
[2019-02-06 22:57] VITALS: BP 111/64
[2019-02-07] MEDS: PIPERACILLIN/TAZOBACTAM 3.375 GM in IV NORMAL SALINE 50ML 50 ML IV SCH ×3 (00:06→12:00)
[2019-02-07] MEDS: HYDROcodone/APAP 5/325MG 1 TAB TABLET PO PRN ×3 (00:10→10:01)
[2019-02-07 03:00] VITALS: BP 99/66
[2019-02-07 07:00] VITALS: BP 98/62
[2019-02-07] MEDS: LINEZOLID 600 MG TABLET PO SCH (08:32)
--- NOTE | 2019-02-07 09:20 | PDOC ---
Infectious Disease Note Subjective: Subjective Patient is doing much better Eager for discharge home today Left gluteal and abdominal pain is under control no f/c/n/v/d The minimal drainage from SAIGE drain Awaiting SAIGE drain removed by general surgery today Patient is ready for discharge home today by primary ROS: ROS Negative except for above. Vital Signs: Vital Signs Vital Signs Date Time Temp Pulse Resp B/P (MAP) Pulse Ox O2 Delivery O2 Flow Rate FiO2 02/07/19 08:32 Room Air 02/07/19 07:00 98.0 70 18 98/62 (74) 98 98.0 Physical Exam: PHYSICAL EXAM GENERAL: The patient is propped up in bed, alert HEENT: Pupils equally round, reactive. Normal conjunctivae. Oropharynx pink and moist. No lesions. NECK: Supple. LUNGS: Clear to auscultation. HEART: S1 and S2. ABDOMEN: Mildly distended, soft, nontender with bowel sounds present. Ostomy without signs of complications. Left gluteal SAIGE drain in place with cloudy sanguineous drainage. EXTREMITIES: No gross edema or cyanosis. SKIN: Warm without generalized rash. NEUROLOGIC: Alert and responding to questions appropriately of the tripe scraper. She moves all extremities. Peripheral IV. Medications: Inpatient Meds: Current Medications Medications (Trade) Dose Ordered Sig/Dhruv Start Time Stop Time Status Last Admin Dose Admin Acetaminophen (Tylenol) 650 mg PRN Q6HRS PRN 02/03/19 09:30 UNV Acetaminophen/ Hydrocodone Bitart (Lortab 5/325) 1 tab PRN Q4HRS PRN 02/05/19 13:30 02/07/19 05:52 Fentanyl Citrate (Fentanyl 2ml Vial) 100 mcg 1X ONCE 02/03/19 12:45 02/03/19 12:46 DC 02/03/19 12:47 Fluconazole/ Sodium Chloride 200 ml @ 100 mls/hr Q24H 02/03/19 16:00 02/06/19 15:52 Hydromorphone HCl (Dilaudid) 0.5 mg PRN Q4HRS PRN 02/05/19 13:30 Info (CONTRAST GIVEN -- Rx MONITORING) 1 each PRN DAILY PRN 02/03/19 00:30 02/05/19 00:29 DC Iohexol (Omnipaque 300 Mg/ml) 75 ml 1X ONCE 02/03/19 00:15 02/03/19 00:16 DC 02/03/19 00:42 Lidocaine/Sodium Bicarbonate (Buffered Lidocaine 1%) 9 ml 1X ONCE 02/03/19 12:45 02/03/19 12:46 DC 02/03/19 12:46 Linezolid (Zyvox) 600 mg BID 02/06/19 10:00 02/07/19 08:32 Midazolam HCl (Versed) 2 mg 1X ONCE 02/03/19 12:45 02/03/19 12:46 DC 02/03/19 12:47 Piperacillin Sod/ Tazobactam Sod (Zosyn Per Pharmacy) 1 each PRN DAILY PRN 02/02/19 23:00 02/04/19 14:06 DC Piperacillin Sod/ Tazobactam Sod 3.375 gm/Sodium Chloride 50 ml @ 100 mls/hr Q6HRS 02/03/19 06:00 02/07/19 05:52 Potassium Chloride/Sodium Chloride 1,000 ml @ 50 mls/hr Q20H 02/02/19 23:30 02/06/19 15:52 Sodium Chloride 1,000 ml @ 250 mls/hr Q4H 02/02/19 22:15 02/05/19 13:23 DC 02/05/19 04:16 Vancomycin HCl (Vanco Per Pharmacy) 1 each PRN DAILY PRN 02/02/19 23:30 02/06/19 10:14 DC 02/05/19 16:18 Vancomycin HCl (Vancomycin Trough Level) 1 each 1X ONCE 02/04/19 12:00 02/04/19 12:01 DC 02/04/19 12:00 Vancomycin HCl 1.25 gm/Sodium Chloride 250 ml @ 166.667 mls/hr Q8H 02/04/19 20:00 02/06/19 10:14 DC 02/06/19 03:51 Vancomycin HCl 1.75 gm/Sodium Chloride 500 ml @ 250 mls/hr 1X ONCE 02/02/19 23:45 02/03/19 01:44 DC 02/03/19 00:50 Vancomycin HCl 1 gm/Sodium Chloride 250 ml @ 250 mls/hr Q12H 02/03/19 12:30 02/04/19 14:05 DC 02/04/19 12:30 Labs: Micro RUN DATE: 02/06/19 PAGE 1 RUN TIME: 1413 [facility] [address] [place] [address] Shad Roldan M.D., Lockstitch Tunnel Elastic Operator PATIENT: GREER OLVERA ACCT: [id number] LOC: [address] [place] [address] U: [id number] AGE/SX: 54/F ROOM: [facility] RE02/02/[address]: VIOLET LAZO MD : 1965 BED: 1 DIS: STATUS: ADM IN TLOC: SPEC #: [id number] RUTH: 02/03/19-1230 STATUS: RES REQ #: [id number] RECD: 02/03/19-[address] [facility] [address]: DELICIA ROSALES MD SOURCE: PELVIS ENTR: 02/03/19-[address]: VIOLET LAZO MD SPDC: ABSCESS THERESA SALAZAR MD NO PCP ORDERED: ANAER/AEROB/GS Procedure Result ANAEROBIC-AEROBIC CULTURE Preliminary Preliminary report ANAEROBIC RES 1 Preliminary Comment Holding for possible anaerobes. AEROBIC CULT Final Final report AEROBIC RES 1 Final Comment No growth in 56 - 72 hours. GRAM STAIN Final Final report GRAM STAIN RES 1 Final Comment Moderate amount of white blood cells. GRAM STAIN RES 2 Final Comment Rare gram negative rods. Performed at: [place] [facility] [address] [facility] [address], [place], [place] [id number] Telephone Information Clerk: LIZETT Valencia MD, Phone: [phone] ---- Objective: Assessment: 1. Presacral abscess measuring 1.9 x 5.8 cm, status post IR drain placement on 02/03. Cultures possible anaerobes,ID still pending 2. Fever resolved 3. Rectal carcinoma status post abdominoperineal resection, bilateral oophorectomy and appendectomy on 01/16/2019. 4. Left pelvis nodule, probable nodule metastasis seen on CT. 5. Mild bilateral hydroureteronephrosis. 6. Pyuria. UC neg so far Plan: Plan of Care pt can be discharged home on empiric Augmentin pending ID of anaerobes for 10 days call our office on Mon for f/u micro results [phone] Further antibiotic modifications pending culture results. Discussed with LINE ERECTOR from gen surgery FU in ID Clinic in 7-14 days [phone] STEPHANE WALKER MD Feb 07, 2019 09:20
[2019-02-07] MEDS: POTASSIUM CL 20MEQ-0.45% NACL 1,000 ML IV SCH (09:39)
--- NOTE | 2019-02-07 10:48 | PDOC ---
SURGICAL PROGRESS NOTE Subjective spoke with patient using her rail engineer phone questions answered Vital Signs Vital Signs Date Time Temp Pulse Resp B/P (MAP) Pulse Ox O2 Delivery O2 Flow Rate FiO2 02/07/19 10:01 Room Air 02/07/19 07:00 98.0 70 18 98/62 (74) 98 98.0 General: Alert, Oriented X3, Cooperative, No acute distress Abdomen: Soft, Other (drain scant serosang drainage ) Labs Laboratory Tests Test 02/06/19 06:20 Potassium Level 3.7 mmol/L (3.5-5.1) Creatinine 0.6 mg/dL (0.6-1.0) Estimated GFR (Cockcroft-Gault) 103.8 Assessment/Plan drain removed d/w ID--home on oral abx will dc home, fu in clinic next week CHELSIE BOURNE APRN Feb 07, 2019 10:48
--- NOTE | 2019-02-07 10:50 | DISCH ---
DISCHARGE INSTRUCTIONS Condition on Discharge Condition on Discharge: Stable Activity After Discharge Activity Instructions for Disc: Avoid exertion Lifting Instructions after Dis: No heavy lifting Exercise Instruction after Dis: Progress as tolerated Weight Bearing Status after Di: As tolerated Diet after Discharge Diet after Discharge: Regular Wound Incision Care Wound/Incision Care: Change dressing (as needed), May get incision wet Contacting the DRJose G after DC Call your doctor for: Concerns you may have Follow-Up Follow up with: Dr Day 1 week, call to schedule [phone] Treatment/Equipment after DC Comment: CHELSIE Pisano CFO CONTROLLER Feb 07, 2019 10:50
--- NOTE | 2019-02-07 11:13 | PDOC3 ---
Discharge Summary Visit Information Date of Admission: Jan 31, 2019 Date of Discharge: Feb 07, 2019 Admitting Diagnosis Comment: sepsis Final Diagnosis same Brief Hospital Course Allergies Allergies Coded Allergies Type Severity Reaction Last Updated Verified No Known Drug Allergies 09/15/18 No Vital Signs Vital Signs Date Time Temp Pulse Resp B/P (MAP) Pulse Ox O2 Delivery O2 Flow Rate FiO2 02/07/19 10:01 Room Air 02/07/19 07:00 98.0 70 18 98/62 (74) 98 98.0 Lab Results Laboratory Tests Test 02/06/19 06:20 Potassium Level 3.7 mmol/L (3.5-5.1) Creatinine 0.6 mg/dL (0.6-1.0) Estimated GFR (Cockcroft-Gault) 103.8 Brief Hospital Course Ms. Boyd is a 54 old female s/p AP resection who presented with fever and pelv ic pain. CT showed a fluid collection in the presacral space. This was drained by IR and her fevers and pain resolved Discharge Information Condition at Discharge: Improved Follow Up: As Needed Scheduled Amoxicillin/Potassium Clav (Amox Tr-K Clv 500-125 Mg Tab) 1 Each Tablet, 1 TAB PO BID for infection, #14 (Reported) Entered as Reported by: SANDRA KILLIAN on 02/02/192227 Last Action: New Order on 02/02/192227 by SANDRA KILLIAN Scheduled PRN Hydrocodone Bit/Acetaminophen (Hydrocodone-Apap 5-325 ) 1 Tab Tablet, 1 TAB PO PRN Q6HRS PRN for PAIN, #30 Ref 0 Prescribed by: Dorene Cornejo on 01/22/19 1203 Discontinued Medications Hydrocodone/Acetaminophen (Hydrocodone-Acetamin 5-325 mg) 1 Each Tablet, 1 EACH PO PRN Q4HRS PRN for PAIN, (Reported) Entered as Reported by: SANDRA KILLIAN on 02/02/192227 Last Action: New Order on 02/02/192227 by VIOLET PALMER MD Feb 07, 2019 11:13
--- NOTE | 2019-02-07 14:27 | NUR ---
Discharge Note: JENNI OLVERA Discharge instructions and discharge home medications reviewed with Patient and a copy given. All questions have been answered and understanding verbalized. The following instructions and handouts were given: discharge instructions, new prescriptions, education and follow up recommendations. Discontinued lines and drains: SAIGE Drain, a Single Lumen PICC line both discontinued intact. Patient discharged to Home or Self Care with Family Member via Wheelchair off unit by ERIKA.
== END 2019-02-07 14:00 | disposition home or self-care (01) | DRG 871 ==
LOC: 6 SOUTH 21:56 → 5 NORTH 02-05 22:56
PROVIDERS: ADMIT Surgery; ATTEND Surgery
PROC: 0W9J30Z Drainage of Pelvic Cavity with Drainage Device, Percutaneous Approach (ICD-10-PCS; principal; 2019-02-03)
PROC: 02HV33Z Insertion of Infusion Device into Superior Vena Cava, Percutaneous Approach (ICD-10-PCS; 2019-02-04)
PROC: B548ZZA Ultrasonography of Superior Vena Cava, Guidance (ICD-10-PCS; 2019-02-04)
DX: A41.9 Sepsis, unspecified organism (principal); E43 Unspecified severe protein-calorie malnutrition; K68.19 Other retroperitoneal abscess; N13.6 Pyonephrosis; Z80.1 Family history of malignant neoplasm of trachea, bronchus and lung; Z82.3 Family history of stroke; Z83.3 Family history of diabetes mellitus; Z85.048 Personal history of other malignant neoplasm of rectum, rectosigmoid junction, and anus; Z87.442 Personal history of urinary calculi; Z92.3 Personal history of irradiation; Z86.010 Personal history of colon polyps; Z68.25 Body mass index [BMI] 25.0-25.9, adult; Z90.49 Acquired absence of other specified parts of digestive tract; Z90.722 Acquired absence of ovaries, bilateral
CPT/HCPCS: 36415; 36569; 49406; 71045; 74177; 80048; 80053; 80202; 81001; 82565; 84132; 84145; 85007; 85025; 87040; 87071; 87075; 87086; 99152; 99153; C1729; C1892; J1170; J1450; J2250; J2543; J3010; J3370; J7030; J7040; J7050; Q9967

== ENCOUNTER → 2019-03-08 | Outpatient (CLI) | payer BC ==
[2019-02-07 07:00] VITALS: BP 98/62
[~2019-03-08] MED LIST changes: +AMOX1TAB10 PO; +HYDR-2759 PO
[2019-03-08 10:14] LABS: BASO % 1 % (0-3); EOS % 1 % (0-3); HEMATOCRIT 32.5 % (36.0-47.0); HEMOGLOBIN 10.9 g/dL (12.0-15.5); LYMPH # 0.6 x10^3/uL (1.0-4.8); LYMPH % 16 % (24-48); MEAN CORPUSCULAR HEMOGLOBIN 29 pg (25-35); MEAN CORPUSCULAR HGB CONC 34 g/dL (31-37); MEAN CORPUSCULAR VOLUME 87 fL (79-100); MONO # 0.3 x10^3/uL (0.0-1.1); MONO % 8 % (0-9); NEUT # 3.1 x10^3/uL (1.8-7.7); NEUT % 75 % (31-73); PLATELET COUNT 266 x10^3/uL (140-400); RED BLOOD COUNT 3.76 x10^6/uL (3.50-5.40); WHITE BLOOD COUNT 4.1 x10^3/uL (4.0-11.0)
[2019-03-08 10:28] LABS: CREATININE 0.6 mg/dL (0.6-1.0); GFR 103.8; POTASSIUM 3.6 mmol/L (3.5-5.1)
--- NOTE | 2019-03-08 10:37 | RAD ---
Indication: Dyspnea on exertion TECHNIQUE: 2 views of the chest COMPARISON: Chest x-ray from 02/02/2019. FINDINGS: Heart is normal in size. Lungs are clear. No pneumothorax or pleural effusion. Visualized bony thorax within normal limits. IMPRESSION: No acute pulmonary process. Electronically signed by: Checo Pinzon DO (03/08/2019 10:34 AM) [facility]
== END | disposition home or self-care (01) ==
LOC: RAD 09:36
PROVIDERS: ATTEND Surgery
DX: R06.09 Other forms of dyspnea (principal)
CPT/HCPCS: 36415; 71046; 80048; 85025

== ENCOUNTER → 2019-03-20 | Outpatient (CLI) | payer BC ==
[2019-03-20 10:36] LABS: HEMATOCRIT 32.1 % (36.0-47.0)
== END | disposition home or self-care (01) ==
LOC: LAB 10:12
PROVIDERS: ATTEND Surgery
DX: K92.2 Gastrointestinal hemorrhage, unspecified (principal)
CPT/HCPCS: 36415; 85014; 85018

== ENCOUNTER 2019-04-03 08:39 | Inpatient (IN) | payer BC ==
[~2019-04-03] VITALS: Ht 165.1 cm; Wt 62.8 kg
[2019-04-03] VITALS (8 sets, daily range): BP systolic 108–130; BP diastolic 61–73
[~2019-04-03 08:39] MED LIST changes: +BACITRACIN 50,000 UNIT in IV NORMAL SALINE 500ML BAG 500 ML IRR ONE; +BUPIVAC MPF-EPI 0.5%-1:200000 30 ML VIAL. INJ ONE; +HYDROmorphone 2 MG/ML VIAL IV PRN; +LIDOCAINE 1% PF 2 ML VIAL. ID PRN; +ONDANSETRON PF 4 MG/2 ML VIAL. IV PRN; +fentaNYL PF VIAL 100 MCG/2 ML VIAL IV PRN
[2019-04-03] MEDS ORDERED: CONTRAST GIVEN. MC PRN (09:00)
[2019-04-03] MEDS ORDERED: IOHEXOL 240 MG/ML 50ML VIAL. PO ONE (09:00)
[2019-04-03] MEDS ORDERED: IOHEXOL 300 MG/ML 100ML VIAL. IV ONE (09:00)
[2019-04-03] MEDS ORDERED: ONDANSETRON PF 4 MG/2 ML VIAL. ONE ×2 (09:47→15:11)
[2019-04-03] MEDS ORDERED: PROPOFOL 0 ML IV ONE (09:47)
[2019-04-03] MEDS ORDERED: ROCURONIUM 50 MG/5 ML VIAL. ONE ×3 (09:47→17:47)
[2019-04-03] MEDS ORDERED: fentaNYL PF VIAL 100 MCG/2 ML VIAL ONE ×2 (09:47→15:12)
[2019-04-03] MEDS ORDERED: LIDOCAINE 2% PF 5 ML VIAL. ONE ×2 (09:47→15:11)
[2019-04-03] MEDS ORDERED: MIDAZOLAM HCL/PF 2 MG/2 ML VIAL. ONE ×2 (09:47→15:12)
[2019-04-03] MEDS ORDERED: DEXAMETHASONE SOD PHOS 4 MG/ML VIAL ONE ×2 (09:47→15:11)
--- NOTE | 2019-04-03 11:43 | RAD ---
EXAM: CT Abdomen and Pelvis with IV contrast CLINICAL HISTORY: Adnexal mass. COMPARISON: 12/13/2018, 02/03/2019 TECHNIQUE: Helical CT of the abdomen and pelvis was performed following the administration of intravenous contrast. Axial, coronal and sagittal reformatted images were generated. PQRS compliance statement - One or more of the following individualized dose reduction techniques were utilized for this study: 1. Automated exposure control 2. Adjustment of the mA and/or kV according to patient size 3. Use of iterative reconstruction technique FINDINGS: Lower chest: Lung bases are clear. Heart is not enlarged. No pericardial effusion. Abdomen and Pelvis: No focal liver lesion. Gallbladder is normal. Spleen is unremarkable. Adrenal glands are normal. Pancreas is unremarkable. Symmetric nephrograms. Punctate right lower pole nonobstructing renal calculus. Right upper pole renal cystic lesion is seen. No left renal calculus. No hydronephrosis. No hydroureter. Diffuse bladder wall thickening may be seen with cystitis. Moderate to large volume colonic stool content is seen. Left lower quadrant colostomy is seen. Diffuse soft tissue thickening of the presacral region is more prominent on today's examination. The previously seen focus of gas is not seen on today's examination. Associated colonic wall thickening is stable. Presacral collection has decreased in size, measuring 1.3 cm, previously up to 1.9 cm transversely. The left adnexal/left lower pelvic soft tissue mass measures 2.3 x 2.4 cm, previously 2.5 cm Bones: Degenerative changes of the spine are seen. No spondylolisthesis. IMPRESSION: 1. Changes of partial colectomy with left lower quadrant colostomy are again seen. 2. Although the degree of presacral soft tissue thickening is more prominent on today's exam, the associated fluid collection is smaller and no foci of gas are seen on today's exam. 3. The left adnexal/lower pelvic soft tissue mass/lymph node is stable to borderline decreased in size. 4. No definite hydronephrosis on today's examination. 5. Bladder wall thickening may be seen with cystitis. Electronically signed by: Jakob Renner MD (04/03/2019 11:41 AM) [facility]
[2019-04-03] MEDS: IV RINGERS,LACTATED 1000ML 1,000 ML IV SCH ×2 (14:47→18:42)
[2019-04-03 14:50] LABS: BASO % 1 % (0-3); EOS % 1 % (0-3); HEMATOCRIT 32.3 % (36.0-47.0); LYMPH # 0.5 x10^3/uL (1.0-4.8); LYMPH % 16 % (24-48); MEAN CORPUSCULAR HEMOGLOBIN 30 pg (25-35); MEAN CORPUSCULAR HGB CONC 34 g/dL (31-37); MEAN CORPUSCULAR VOLUME 88 fL (79-100); MONO # 0.3 x10^3/uL (0.0-1.1); MONO % 9 % (0-9); NEUT # 2.6 x10^3/uL (1.8-7.7); NEUT % 74 % (31-73); PLATELET COUNT 221 x10^3/uL (140-400); RED BLOOD COUNT 3.69 x10^6/uL (3.50-5.40); RED CELL DISTRIBUTION WIDTH 14.9 % (11.5-14.5); WHITE BLOOD COUNT 3.5 x10^3/uL (4.0-11.0)
[2019-04-03 15:01] LABS: ALBUMIN 3.5 g/dL (3.4-5.0); CALCIUM 8.9 mg/dL (8.5-10.1); CREATININE 0.6 mg/dL (0.6-1.0); GFR 103.8; POTASSIUM 3.6 mmol/L (3.5-5.1)
[2019-04-03] MEDS ORDERED: PROPOFOL 20 ML IV ONE (15:11)
[2019-04-03] MEDS ORDERED: SUCCINYLCHOLINE 200 MG/10 ML VIAL. ONE (15:12)
--- NOTE | 2019-04-03 15:21 | PDOC ---
Provider Note Provider Note SURg talked with Min and her in pre op holding reviewed R/B/A including but not limited to bleeding, infection, injury to surrounding structures requiring further surgery she will proceed VIOLET LAZO MD Apr 03, 2019 15:21
[2019-04-03] MEDS ORDERED: GLYCOPYRROLATE 1 MG/5 ML VIAL. ONE (16:14)
[2019-04-03] MEDS ORDERED: ePHEDrine PF IN SALINE 50 MG/10 ML SYRINGE. IV ONE (16:14)
[2019-04-03] MEDS ORDERED: KETAMINE HCL IN NACL, ISO-OSM 50 MG/5 ML SYRINGE ONE (17:11)
[2019-04-03] MEDS ORDERED: BUPIVAC MPF-EPI 0.5%-1:200000 30 ML VIAL. INJ ONE (17:15)
[2019-04-03] MEDS ORDERED: SURGICEL HEMOSTAT 2X3 EACH. ONE (17:38)
[2019-04-03] MEDS ORDERED: SURGICEL HEMOSTAT 2X14 EACH. ONE (17:38)
[2019-04-03] MEDS ORDERED: SURGICEL HEMOSTAT 4X8 EACH. ONE (17:39)
[2019-04-03] MEDS ORDERED: SEVOFLURANE > 120 MINUTES. IH ONE (17:49)
[2019-04-03] MEDS ORDERED: PHENYLEPHRINE in 0.9% NACL PF 1 MG/10 ML SYRINGE. IV ONE (17:49)
[2019-04-03] MEDS ORDERED: NEOSTIGMINE METHYLSULFATE 5 MG/5 ML SYRINGE. ONE (17:50)
[2019-04-03] MEDS ORDERED: BUPIVACAINE MPF 0.5% 10 ML VIAL. IJ ONE (18:20)
[2019-04-03] MEDS ORDERED: BUPIVACAINE MPF 0.5% 30 ML VIAL. ONE (18:20)
[2019-04-03] MEDS: MORPHINE SULFATE 2 MG/ML VIAL. IV PRN ×2 (19:04→19:36)
[2019-04-03] MEDS: PROCHLORPERAZINE 10 MG/2 ML VIAL. IV PRN ×2 (19:05→19:48)
[2019-04-03] MEDS: fentaNYL PF VIAL 100 MCG/2 ML VIAL IV PRN ×2 (19:06→19:48)
[2019-04-03] MEDS ORDERED: IV NORMAL SALINE 1000ML BAG 1,000 ML IV SCH (19:10)
[2019-04-03] MEDS ORDERED: ONDANSETRON PF 4 MG/2 ML VIAL. IV PRN (19:15)
[2019-04-03] MEDS ORDERED: 0.9 % SODIUM CHLORIDE 10 ML DISP.SYRIN. IV PRN (19:15)
[2019-04-03] MEDS ORDERED: NALOXONE 0.4 MG/ML VIAL. IV PRN (19:15)
--- NOTE | 2019-04-03 19:25 | PDOC ---
BRIEF OPERATIVE NOTE Date: Apr 03, 2019 Pre-Op Diagnosis adnexal mass Post-Op Diagnosis same Procedure Performed EUA/pelvic exam l/s -> open exploration bilateral salpingectomy biopsy peritoneal nodule JUNE Surgeon Adam New Accounts Clerk Dr Garcia Anesthesia Type: General Blood Loss 75cc IV Fluid 1000cc Urine Output 260cc Specimens Obtained bilateral tubes, peritoneal nodule, uterine nodule Findings dense tissue reaction at pelvic inlet, hydrosalpinx Complications none Operative Note Wk # [id number] VIOLET LAZO MD Apr 03, 2019 19:25
--- NOTE | 2019-04-03 20:30 | NUR ---
Admit Note: The patient, GREER OLVERA, 54 y/o, F admitted by VIOLET LAZO MD, was given written information regarding hospital policies, unit procedures and contact persons. Patient arrived via bed from PACU, drowsy, VSS, and afebrile with c/o severe pain. Surgical dressings CDI, [place] in place, and admission assessment complete. Patient's primary language Mandarin and patient's spouse in room at time of admission to assist with translation and blue bereavement coordinator phone available if needed. Patient's admit packet reviewed and plan of care discussed. Patient orientated to room and valuables were checked and left in room with patient. Patient now resting in bed and call light within reach, will continue to monitor.
[2019-04-03] MEDS: HYDROmorphone 2 MG/ML VIAL IV PRN ×2 (20:46→23:50)
[2019-04-03] MEDS: POTASSIUM CL 20MEQ-0.45% NACL 1,000 ML IV SCH (20:47)
--- NOTE | 2019-04-03 22:38 | OP ---
DATE OF SURGERY: 04/03/2019 PREOPERATIVE DIAGNOSIS: Adnexal mass. POSTOPERATIVE DIAGNOSIS: Adnexal mass. PROCEDURE: Laparoscopic converted to open exploration, bilateral salpingectomy, biopsy of peritoneal nodule, lysis of adhesions. SURGEON: Keenan Lazo MD [employer]OP[employer] CONSULTANT: Cuba Garcia MD ANESTHESIA: General endotracheal. ESTIMATED BLOOD LOSS: 75 mL. IV FLUID: 1 liter. URINE OUTPUT: 260. INDICATIONS: The patient is a 54-year-old 2 months postop AP resection for locally advanced rectal carcinoma. Recent scans show a 2.5 cm nodule in the left axilla/pelvis. She is brought for exploration. OPERATIVE FINDINGS: Omental adhesions were present in the left lower quadrant near the colostomy. The tissue at the pelvic inlet where the uterus was used to recreate the floor was quite dense. Hydrosalpinx bilaterally. Peritoneal nodule in the left pelvis. DESCRIPTION OF PROCEDURE: The patient brought to the operating suite, given a general endotracheal anesthetic, placed in the dorsal lithotomy position. A gentle pelvic exam was carried out using a small speculum. No evidence of vaginal abnormality was seen. The patient was placed in supine and the abdomen prepped and draped in usual sterile fashion, excluding her left-sided colostomy. A midline incision in the upper abdomen was infiltrated with local, incised and a 5 mm Visiport used to safely gain access into the abdominal cavity. Pneumoperitoneum established. Camera inserted. Inspection carried out with results as noted above. Two right-sided ports were placed and omental adhesions around the stoma were taken down, being careful to avoid injury to the bowel. We then placed the table in steep Trendelenburg and rolled to the right. Inspection of the pelvis revealed a peritoneal nodule, which was harvested and sent to pathology. Frozen section was negative for cancer. I was unable to identify any structure consistent with the radiographic findings and as such, I opted to proceed with laparotomy. Table returned to level. The low midline incisional scar was reopened, abdomen carefully entered. Omni self-retaining retractor for exposure. The fallopian tubes were excised with LigaSure. Care was taken during the exploration to avoid the ureters. No visible or palpable abnormality could be appreciated in the lateral left pelvis. I did not feel further dissection into the presacral space was warranted given the changes present both post-radiation and postoperatively. As such, the pelvis was irrigated, evacuated and checked for hemostasis. When present, a 19-Sinhala round Zachariah drain was brought through one of the port sites on the right side, left in the pelvis for postoperative drainage. When a correct sponge count was obtained, the abdomen was closed by running the posterior sheath peritoneum with 0 Vicryl. Anterior sheath closed in running fashion with looped 0 PDS tied in the middle. Subq approximated with 3-0 Vicryl, skin closed with a subcuticular 4-0 Monocryl. Sterile dressings applied. Postop foreign body film was negative for unexplained foreign body. The patient awakened from her anesthetic and taken to the recovery room in satisfactory condition. KEENAN LAZO MD DR: YUE/aj JOB#: [id number] / [id number]
[2019-04-04] VITALS (7 sets, daily range): BP systolic 97–139; BP diastolic 51–77
--- NOTE | 2019-04-04 08:01 | PDOC ---
SURGICAL PROGRESS NOTE Subjective sleeping awakens easily sore on the right side Vital Signs Vital Signs Date Time Temp Pulse Resp B/P (MAP) Pulse Ox O2 Delivery O2 Flow Rate FiO2 04/04/19 07:16 Room Air 04/04/19 03:00 97.8 65 18 102/58 (73) 97 1.0 97.8 I&O Intake and Output 04/04/19 07:00 Intake Total 2050 ml Output Total 1200 ml Balance 850 ml Intake Oral 0 ml IV Total 2050 ml Output Urine Total 1060 ml Drainage Total 65 ml Estimated Blood Loss 75 ml PATIENT HAS A PEREZ: Yes General: Alert, No acute distress Abdomen: Soft Labs Laboratory Tests Test 04/03/19 14:39 White Blood Count 3.5 x10^3/uL (4.0-11.0) Red Blood Count 3.69 x10^6/uL (3.50-5.40) Hemoglobin 11.0 g/dL (12.0-15.5) Hematocrit 32.3 % (36.0-47.0) Mean Corpuscular Volume 88 fL (79-100) Mean Corpuscular Hemoglobin 30 pg (25-35) Mean Corpuscular Hemoglobin Concent 34 g/dL (31-37) Red Cell Distribution Width 14.9 % (11.5-14.5) Platelet Count 221 x10^3/uL (140-400) Neutrophils (%) (Auto) 74 % (31-73) Lymphocytes (%) (Auto) 16 % (24-48) Monocytes (%) (Auto) 9 % (0-9) Eosinophils (%) (Auto) 1 % (0-3) Basophils (%) (Auto) 1 % (0-3) Neutrophils # (Auto) 2.6 x10^3/uL (1.8-7.7) Lymphocytes # (Auto) 0.5 x10^3/uL (1.0-4.8) Monocytes # (Auto) 0.3 x10^3/uL (0.0-1.1) Eosinophils # (Auto) 0.0 x10^3/uL (0.0-0.7) Basophils # (Auto) 0.0 x10^3/uL (0.0-0.2) Sodium Level 143 mmol/L (136-145) Potassium Level 3.6 mmol/L (3.5-5.1) Chloride Level 105 mmol/L (98-107) Carbon Dioxide Level 28 mmol/L (21-32) Anion Gap 10 (6-14) Blood Urea Nitrogen 10 mg/dL (7-20) Creatinine 0.6 mg/dL (0.6-1.0) Estimated GFR (Cockcroft-Gault) 103.8 Glucose Level 93 mg/dL (70-99) Calcium Level 8.9 mg/dL (8.5-10.1) Albumin 3.5 g/dL (3.4-5.0) Laboratory Tests Test 04/03/19 14:39 White Blood Count 3.5 x10^3/uL (4.0-11.0) Red Blood Count 3.69 x10^6/uL (3.50-5.40) Hemoglobin 11.0 g/dL (12.0-15.5) Hematocrit 32.3 % (36.0-47.0) Mean Corpuscular Volume 88 fL (79-100) Mean Corpuscular Hemoglobin 30 pg (25-35) Mean Corpuscular Hemoglobin Concent 34 g/dL (31-37) Red Cell Distribution Width 14.9 % (11.5-14.5) Platelet Count 221 x10^3/uL (140-400) Neutrophils (%) (Auto) 74 % (31-73) Lymphocytes (%) (Auto) 16 % (24-48) Monocytes (%) (Auto) 9 % (0-9) Eosinophils (%) (Auto) 1 % (0-3) Basophils (%) (Auto) 1 % (0-3) Neutrophils # (Auto) 2.6 x10^3/uL (1.8-7.7) Lymphocytes # (Auto) 0.5 x10^3/uL (1.0-4.8) Monocytes # (Auto) 0.3 x10^3/uL (0.0-1.1) Eosinophils # (Auto) 0.0 x10^3/uL (0.0-0.7) Basophils # (Auto) 0.0 x10^3/uL (0.0-0.2) Sodium Level 143 mmol/L (136-145) Potassium Level 3.6 mmol/L (3.5-5.1) Chloride Level 105 mmol/L (98-107) Carbon Dioxide Level 28 mmol/L (21-32) Anion Gap 10 (6-14) Blood Urea Nitrogen 10 mg/dL (7-20) Creatinine 0.6 mg/dL (0.6-1.0) Estimated GFR (Cockcroft-Gault) 103.8 Glucose Level 93 mg/dL (70-99) Calcium Level 8.9 mg/dL (8.5-10.1) Albumin 3.5 g/dL (3.4-5.0) Assessment/Plan POD 1 ex lap start clears, po pain meds will d/w Min and her later this AM when he comes to the hospital VIOLET LAZO MD Apr 04, 2019 08:01
[2019-04-04] MEDS: HYDROmorphone 2 MG/ML VIAL IV PRN (08:19)
[2019-04-04] MEDS: ENOXAPARIN 40 MG/0.4 ML SYRINGE. SQ SCH (08:19)
[2019-04-04] MEDS: POTASSIUM CL 20MEQ-0.45% NACL 1,000 ML IV SCH ×2 (08:20→22:50)
[2019-04-04] MEDS: oxyCODONE/APAP 5/325 1 TAB TABLET PO PRN (09:58)
--- NOTE | 2019-04-04 10:20 | PDOC ---
Provider Note Provider Note with to help with advertising sales consultant phone ap, explained results VIOLET LAZO MD Apr 04, 2019 10:20
[2019-04-04] MEDS ORDERED: BUTALB/APAP/CAFEIN 50/325/40MG TABLET. PO PRN (10:30)
--- NOTE | 2019-04-04 10:31 | RAD ---
Abdominal radiograph 04/03/2019 6:05 PM Indication: Post exploratory laparotomy. Comparison: CT chest, abdomen and pelvis September 15, 2018, abdominal radiograph January 16, 2019. Technique: Frontal supine radiographs of the abdomen were obtained. Findings: Supine technique limits evaluation for free intraperitoneal air. No pneumatosis coli. Oral contrast is identified within the large bowel. Surgical drainage catheter projects over the pelvis. No radiopaque foreign density. There are no dilated loops of small or large bowel. There are no differential air-fluid levels. There is no organomegaly. No suspicious calcifications are identified along the expected course of the genitourinary tract. No suspicious osseous abnormality is identified. IMPRESSION Nonobstructive bowel gas pattern. Surgical drainage catheter is identified in the right lower quadrant of the pelvis. Electronically signed by: Corina Siu MD (04/04/2019 10:28 AM) [id number]
--- NOTE | 2019-04-04 10:45 | NUR ---
Removed patients mayers catheter per doctor order, patient tolerated procedure well, will continue to monitor.
--- NOTE | 2019-04-04 12:55 | NUR ---
SS following for discharge planning. SS reviewed pt chart. Pt is from home with spouse and is currently on room air. No discharge needs noted at this time. SS will continue to follow for discharge planning.
[2019-04-04] MEDS: MORPHINE SULFATE 4 MG/ML VIAL. IV PRN ×3 (13:51→22:52)
[2019-04-05] MEDS: MORPHINE SULFATE 4 MG/ML VIAL. IV PRN ×2 (03:39→08:03)
[2019-04-05 03:47] VITALS: BP 110/61
[2019-04-05 07:00] VITALS: BP 106/55
[2019-04-05] MEDS: ENOXAPARIN 40 MG/0.4 ML SYRINGE. SQ SCH (08:03)
--- NOTE | 2019-04-05 09:25 | PDOC ---
CHELSIE BOURNE RESIDENTIAL DIRECT SUPPORT PROFESSIONAL 04/05/19 0925: SURGICAL PROGRESS NOTE Subjective tolerating diet pain at drain site Vital Signs Vital Signs Date Time Temp Pulse Resp B/P (MAP) Pulse Ox O2 Delivery O2 Flow Rate FiO2 04/05/19 08:52 Room Air 04/05/19 07:00 98.9 71 18 106/55 (72) 100 98.9 04/04/19 20:00 1.0 I&O Intake and Output 04/05/19 07:00 Intake Total 200 ml Output Total 470 ml Balance -270 ml Intake Oral 200 ml Output Urine Total 350 ml Drainage Total 120 ml # Voids 3 General: Alert, Oriented X3, Cooperative, No acute distress Abdomen: Soft, Other (incision c/d/i, no erythema, drain serosang) Labs Laboratory Tests Test 04/03/19 14:39 White Blood Count 3.5 x10^3/uL (4.0-11.0) Red Blood Count 3.69 x10^6/uL (3.50-5.40) Hemoglobin 11.0 g/dL (12.0-15.5) Hematocrit 32.3 % (36.0-47.0) Mean Corpuscular Volume 88 fL (79-100) Mean Corpuscular Hemoglobin 30 pg (25-35) Mean Corpuscular Hemoglobin Concent 34 g/dL (31-37) Red Cell Distribution Width 14.9 % (11.5-14.5) Platelet Count 221 x10^3/uL (140-400) Neutrophils (%) (Auto) 74 % (31-73) Lymphocytes (%) (Auto) 16 % (24-48) Monocytes (%) (Auto) 9 % (0-9) Eosinophils (%) (Auto) 1 % (0-3) Basophils (%) (Auto) 1 % (0-3) Neutrophils # (Auto) 2.6 x10^3/uL (1.8-7.7) Lymphocytes # (Auto) 0.5 x10^3/uL (1.0-4.8) Monocytes # (Auto) 0.3 x10^3/uL (0.0-1.1) Eosinophils # (Auto) 0.0 x10^3/uL (0.0-0.7) Basophils # (Auto) 0.0 x10^3/uL (0.0-0.2) Sodium Level 143 mmol/L (136-145) Potassium Level 3.6 mmol/L (3.5-5.1) Chloride Level 105 mmol/L (98-107) Carbon Dioxide Level 28 mmol/L (21-32) Anion Gap 10 (6-14) Blood Urea Nitrogen 10 mg/dL (7-20) Creatinine 0.6 mg/dL (0.6-1.0) Estimated GFR (Cockcroft-Gault) 103.8 Glucose Level 93 mg/dL (70-99) Calcium Level 8.9 mg/dL (8.5-10.1) Albumin 3.5 g/dL (3.4-5.0) Assessment/Plan advance diet dc today or possible in AM VIOLET LAZO MD 04/05/19 1052: SURGICAL PROGRESS NOTE Assessment/Plan pt seen with her doing well home today after drain removal f/u week of the CHELSIE BOURNE APRN Apr 05, 2019 09:25 VIOLET LAZO MD Apr 05, 2019 10:52
[2019-04-05] MEDS: POTASSIUM CL 20MEQ-0.45% NACL 1,000 ML IV SCH (09:30)
[2019-04-05] MEDS: oxyCODONE/APAP 5/325 1 TAB TABLET PO PRN (10:36)
[2019-04-05 10:54] VITALS: BP 102/63
--- NOTE | 2019-04-05 10:54 | PDOC3 ---
Discharge Summary Visit Information Date of Admission: Apr 03, 2019 Date of Discharge: Apr 05, 2019 Admitting Diagnosis Comment: rectal carcinoma Final Diagnosis same Brief Hospital Course Allergies Allergies Coded Allergies Type Severity Reaction Last Updated Verified No Known Drug Allergies 04/03/19 No Vital Signs Vital Signs Date Time Temp Pulse Resp B/P (MAP) Pulse Ox O2 Delivery O2 Flow Rate FiO2 04/05/19 10:36 Room Air 04/05/19 07:00 98.9 71 18 106/55 (72) 100 98.9 04/04/19 20:00 1.0 Lab Results Laboratory Tests Test 04/03/19 14:39 White Blood Count 3.5 x10^3/uL (4.0-11.0) Red Blood Count 3.69 x10^6/uL (3.50-5.40) Hemoglobin 11.0 g/dL (12.0-15.5) Hematocrit 32.3 % (36.0-47.0) Mean Corpuscular Volume 88 fL (79-100) Mean Corpuscular Hemoglobin 30 pg (25-35) Mean Corpuscular Hemoglobin Concent 34 g/dL (31-37) Red Cell Distribution Width 14.9 % (11.5-14.5) Platelet Count 221 x10^3/uL (140-400) Neutrophils (%) (Auto) 74 % (31-73) Lymphocytes (%) (Auto) 16 % (24-48) Monocytes (%) (Auto) 9 % (0-9) Eosinophils (%) (Auto) 1 % (0-3) Basophils (%) (Auto) 1 % (0-3) Neutrophils # (Auto) 2.6 x10^3/uL (1.8-7.7) Lymphocytes # (Auto) 0.5 x10^3/uL (1.0-4.8) Monocytes # (Auto) 0.3 x10^3/uL (0.0-1.1) Eosinophils # (Auto) 0.0 x10^3/uL (0.0-0.7) Basophils # (Auto) 0.0 x10^3/uL (0.0-0.2) Sodium Level 143 mmol/L (136-145) Potassium Level 3.6 mmol/L (3.5-5.1) Chloride Level 105 mmol/L (98-107) Carbon Dioxide Level 28 mmol/L (21-32) Anion Gap 10 (6-14) Blood Urea Nitrogen 10 mg/dL (7-20) Creatinine 0.6 mg/dL (0.6-1.0) Estimated GFR (Cockcroft-Gault) 103.8 Glucose Level 93 mg/dL (70-99) Calcium Level 8.9 mg/dL (8.5-10.1) Albumin 3.5 g/dL (3.4-5.0) Brief Hospital Course Ms. Boyd is a 54 old female who presented for l/s vs open exploration for left adnexal mass. Underwent surgery, did well post op, went home on POD 2 Discharge Information Condition at Discharge: Stable Follow Up: As Needed Disposition/Orders: D/C to Home Scheduled Info (No Known Medications Prior To Admisstion) Each, 1 EACH MC DAILY for NO MEDS, (Reported) Entered as Reported by: KALA VALLADARES on 04/02/191354 Last Action: New Order on 04/02/191354 by KALA VALLADARES Discontinued Medications Amoxicillin/Potassium Clav (Amox Tr-K Clv 500-125 Mg Tab) 1 Each Tablet, 1 TAB PO BID for infection, #14 (Reported) Entered as Reported by: SANDRA KILLIAN on 02/02/194 Last Action: Discontinued on 04/02/191353 by VIOLET HAWTHORNE MD Apr 05, 2019 10:54
--- NOTE | 2019-04-05 10:56 | DISCH ---
DISCHARGE INSTRUCTIONS Condition on Discharge Condition on Discharge: Stable Activity After Discharge Activity Instructions for Disc: Activity as tolerated, Avoid exertion Lifting Instructions after Dis: No heavy lifting Exercise Instruction after Dis: Progress as tolerated Driving Instructions after Dis: Do not drive Weight Bearing Status after Di: As tolerated Diet after Discharge Diet after Discharge: Regular Swallowing Supervision: None needed Wound Incision Care Wound/Incision Care: Ice to area for comfort, May get incision wet Other wound/incision instructi: may shower Checks after Discharge Checks after discharge: Check blood press - daily Contacting the DRJose G after DC Call your doctor for: Concerns you may have Follow-Up Follow up with: Adam frederick of the th VIOLET LAZO MD Apr 05, 2019 10:55
--- NOTE | 2019-04-08 16:07 | PATHOLOGY ---
[facility] Accession Number: [id number] . 01 Material submitted: . PART A: adnexa - PERITONEAL IMPLANT, LEFT ADNEXA - FS. Modifiers: left PART B: fallopian tube - RIGHT FALLOPIAN TUBE. Modifiers: right PART C: fallopian tube - LEFT FALLOPIAN TUBE. Modifiers: left PART D: uterine adnexa - UTERINE MASS . 01 Clinical history: . Rectal cancer; left adnexal mass; history of colon cancer . 02 Frozen section diagnosis: . INTRAOPERATIVE CONSULTATION WITH FROZEN SECTION: (Niesha Roldan M.D.) FSA1. Peritoneal implant left adnexa: - Fibromuscular tissue - no evidence of malignancy. . The results were reported to Dr. Mednia in the operating room. . FROZEN SECTION GROSS DESCRIPTION: Received fresh for intraoperative consultation is a "peritoneal implant left adnexa". This consists of a flattened, roughly rectangular segment of pink-red, fibromembranous tissue, measuring 1.4 x 0.5 cm, and a nodular segment of firm, pink-machado tissue measuring up to 0.8 cm in greatest dimension. The nodular segment is bisected. All is submitted for frozen section as FSA1. The tissue remaining from frozen section is submitted for permanent sections as A1. (JPM/db; 04/03/2019) . Frozen section performed at [facility], [address] [place] [address], [place] [id number]. JOSE LUIS/KAREL . 02 Diagnosis: A. Segments of fibromembranous and fibromuscular tissue, left adnexal peritoneal implant: - Focal reactive fibrosis - negative for malignancy. . B. Fallopian tube, right salpingectomy: - Mild chronic salpingitis with mild hydrosalpinx. . C. Fallopian tube, left salpingectomy: - Mild chronic salpingitis with focal mild hydrosalpinx and small paratubal cyst. . D. Segment of myometrial tissue, uterine mass: - Subserosal leiomyoma. (JPM:jada 04/08/2019) QTP/04/08/2019 . 02 Comment: There is no evidence of malignancy. (JPM:pit 04/08/2019) . 02 Electronically signed: . Shad Roldan MD, Pathologist NPI- [id number] . 01 Gross description: . A. Frozen section to be dictated by pathologist . B. The specimen is received in formalin, labeled "Pete Boyd, right fallopian tube". Received is a fimbriated fallopian tube measuring 4.8 cm in length by up to 0.8 cm in diameter. The serosal surface is pink-rodríguez and glistening in appearance. Sectioning reveals a patent to dilated lumen filled with a slight amount of mucoid material near the fimbriated aspect. The specimen is submitted representatively in cassette B1. . C. The specimen is received in formalin, labeled "Pete Boyd, left fallopian tube". Received is a fimbriated fallopian tube measuring 5.9 cm in length by up to 0.6 cm in diameter. The serosal surface is pink-rodríguez in appearance with an attached possible cystic structure near the fimbriated aspect measuring 0.5 cm. Sectioning reveals a patent lumen. The specimen is submitted representatively in cassette C1. . D. The specimen is received in formalin, labeled "Pete Boyd, uterine mass". Received is a 1 g segment of pink-rodríguez to white, firm soft tissue measuring 1.7 x 1.5 x 1.2 cm in greatest dimensions. Sectioning reveals a single fibroid measuring 1.3 cm in maximum dimensions. The specimen is submitted representatively in cassette D1. (CAA; 04/04/2019) QAC/QAC . 02 Pathologist provided ICD-10: N70.11, N83.8, D25.2 . 02 CPT . 713984, 175228, 543290, [id number], [id number] Specimen Comment: A courtesy copy of this report has been sent to Specimen Comment: [phone]. Specimen Comment: Report sent to Performed at: [address] [place] [address] [address], [place] [id number] MD Yaron Pettit MD Phone: [phone] Performed at: [address] [id number] MD Shad Roldan MD Phone: [phone]
== END 2019-04-05 13:20 | disposition home or self-care (01) | DRG 983 ==
LOC: SURG 08:39 → EDSTATUS 11:30 → 4 NORTH 19:30
PROVIDERS: ADMIT Surgery; ATTEND Surgery
PROC: 0WBH4ZX Excision of Retroperitoneum, Percutaneous Endoscopic Approach, Diagnostic (ICD-10-PCS; 2019-04-03)
PROC: 0UB70ZZ Excision of Bilateral Fallopian Tubes, Open Approach (ICD-10-PCS; principal; 2019-04-03 16:00)
DX: R19.09 Other intra-abdominal and pelvic swelling, mass and lump (principal); K66.0 Peritoneal adhesions (postprocedural) (postinfection); N70.11 Chronic salpingitis; Z53.31 Laparoscopic surgical procedure converted to open procedure; Z85.048 Personal history of other malignant neoplasm of rectum, rectosigmoid junction, and anus; Z93.3 Colostomy status
CPT/HCPCS: 36415; 74018; 74177; 80048; 82040; 85025; 88305; 88331; A7015; C1769; J0171; J0330; J0696; J0780; J1100; J1170; J1650; J2001; J2250; J2270; J2370; J2405; J2704; J2710; J3010; J3490; J7030; J7040; J7120; Q9966; Q9967; G0378

== ENCOUNTER → 2019-06-28 | Outpatient (CLI) | payer BC ==
[~2019-06-28] MED LIST changes: -BACITRACIN 50,000 UNIT in IV NORMAL SALINE 500ML BAG 500 ML IRR ONE; -BUPIVAC MPF-EPI 0.5%-1:200000 30 ML VIAL. INJ ONE; +CONTRAST GIVEN. MC PRN; -HYDROmorphone 2 MG/ML VIAL IV PRN; +IOHEXOL 240 MG/ML 50ML VIAL. PO ONE; +IOHEXOL 300 MG/ML 100ML VIAL. IV ONE; -LIDOCAINE 1% PF 2 ML VIAL. ID PRN; +MULT-121 PO; -ONDANSETRON PF 4 MG/2 ML VIAL. IV PRN; -fentaNYL PF VIAL 100 MCG/2 ML VIAL IV PRN
--- NOTE | 2019-06-28 12:51 | RAD ---
CT of the chest, abdomen, and pelvis with contrast 06/28/2019 INDICATION: Rectal cancer. COMPARISON STUDY: CT of the abdomen and pelvis contrast April 03, 2019 TECHNIQUE: Multidetector CT imaging chest was performed following the administration of IV contrast. FINDINGS: Heart size is normal. No pericardial effusion is identified.No pathologically enlarged mediastinal adenopathy is seen. Thoracic aorta is unremarkable in caliber.There is no pneumothorax, pleural effusion, or focal consolidative infiltrate. No nodules or masses Liver, gallbladder, spleen, adrenal glands, left kidney, pancreas are unremarkable. Punctate nonobstructing stone in the inferior pole the right kidney noted. Bowel gas pattern is nonobstructive. Right lower quadrant colostomy noted. Stool is noted throughout the colon. Bladder is decompressed but otherwise unremarkable. Heterogenous the enhancing nodule in the left pelvis measures 2.2 x 2.3 cm. This appears to be minimally smaller than with respect to comparison exam when it measured 2.5 x 2.4 cm.. Presacral soft tissue thickening is unchanged. This could reflect postsurgical change. PET/CT could be performed for further characterization of pelvic nodule and presacral region has clinically indicated. No acute osseous changes are identified. Decreased attenuation of bone marrow throughout the sacrum is seen, likely reflecting postradiation change. This is similar to comparison study. IMPRESSION: 1. Grossly stable appearance of the chest abdomen and pelvis. No evidence of acute cardiopulmonary process or metastatic disease involving the thorax 2. Minimal decrease in size of the now 2.3 cm nodule in the left pelvis with respect to comparison study. 3. Presacral thickening, unchanged. CT DOSING PQRS STATEMENT: One or more of the following individualized dose reduction techniques were utilized for this examination: 1. Automated exposure control 2. Adjustment of the mA and/or kV according to patient size 3. Use of iterative reconstruction technique Electronically signed by: Geovanni Everett MD (06/28/2019 12:48 PM) [id number]
== END | disposition home or self-care (01) ==
LOC: CT 14:03
PROVIDERS: ATTEND Internal Medicine Hematology & Oncology
DX: C20 Malignant neoplasm of rectum (principal); R19.07 Generalized intra-abdominal and pelvic swelling, mass and lump
CPT/HCPCS: 71260; 74177; Q9966; Q9967

== ENCOUNTER 2019-07-02 05:55 | Observation (INO) | payer BC ==
[2019-07-02] VITALS (14 sets, daily range): BP systolic 101–137; BP diastolic 59–77
[~2019-07-02] VITALS: Ht 170.2 cm; Wt 61.2 kg
[~2019-07-02 05:55] MED LIST changes: -CONTRAST GIVEN. MC PRN; -IOHEXOL 240 MG/ML 50ML VIAL. PO ONE; -IOHEXOL 300 MG/ML 100ML VIAL. IV ONE
[2019-07-02] MEDS ORDERED: BUPIVACAINE-EPI 0.5%-1:200000 MPF 30 ML VIAL. INJ ONE (06:00)
[2019-07-02] MEDS ORDERED: HEPARIN SODIUM 5,000 UNIT in IV NORMAL SALINE 500ML BAG 500 ML IRR ONE (06:00)
[2019-07-02] MEDS ORDERED: HYDROmorphone 2 MG/ML VIAL IV PRN ×2 (07:00→18:30)
[2019-07-02] MEDS ORDERED: PROCHLORPERAZINE 10 MG/2 ML VIAL. IV PRN (07:00)
[2019-07-02] MEDS ORDERED: fentaNYL PF VIAL 100 MCG/2 ML VIAL IV PRN ×2 (07:00)
[2019-07-02] MEDS ORDERED: LIDOCAINE 1% PF 2 ML VIAL. ID PRN (07:00)
[2019-07-02] MEDS ORDERED: MORPHINE SULFATE 2 MG/ML VIAL. IV PRN (07:00)
[2019-07-02] MEDS ORDERED: IV RINGERS,LACTATED 1000ML 1,000 ML IV SCH (07:00)
[2019-07-02] MEDS ORDERED: ONDANSETRON PF 4 MG/2 ML VIAL. IV PRN ×2 (07:00→08:45)
[2019-07-02] MEDS ORDERED: BUPIVACAINE MPF 0.5% 30 ML VIAL. ONE (07:23)
[2019-07-02] MEDS ORDERED: PROPOFOL 20 ML IV ONE (07:35)
[2019-07-02] MEDS ORDERED: LIDOCAINE 2% PF 5 ML VIAL. ONE (07:35)
[2019-07-02] MEDS ORDERED: ONDANSETRON PF 4 MG/2 ML VIAL. ONE (07:35)
[2019-07-02] MEDS ORDERED: DEXAMETHASONE SOD PHOS 4 MG/ML VIAL ONE (07:35)
[2019-07-02] MEDS ORDERED: SEVOFLURANE 31 TO 60 MINUTES. IH ONE (07:36)
[2019-07-02] MEDS: IV 1/2 NORMAL SALINE 1,000 ML IV SCH (08:38)
[2019-07-02] MEDS ORDERED: IV NORMAL SALINE 1000ML BAG 1,000 ML IV SCH (08:38)
[2019-07-02] MEDS ORDERED: NALOXONE 0.4 MG/ML VIAL. IV PRN (08:45)
[2019-07-02] MEDS ORDERED: HYDROcodone/APAP 5/325MG 1 TAB TABLET PO PRN (08:45)
[2019-07-02] MEDS ORDERED: 0.9 % SODIUM CHLORIDE 10 ML DISP.SYRIN. IV PRN (08:45)
--- NOTE | 2019-07-02 08:51 | PDOC ---
BRIEF OPERATIVE NOTE Date: Jul 02, 2019 Pre-Op Diagnosis rectal carcinoma needs access for chemotherapy Post-Op Diagnosis same Procedure Performed left subclavian power port Surgeon Adam Anesthesia Type: General, Local Blood Loss 10cc IV Fluid 400cc Specimens Obtained none Findings post op CXR shows tip of catheter in SVC, left apical pneumothorax Complications pneumothorax VIOLET LAZO MD Jul 02, 2019 08:51
--- NOTE | 2019-07-02 09:25 | RAD ---
Examination: PORTABLE CHEST 1V History: Infusion port placement. Comparison/Correlation: 02/06/2019 two-view chest x-ray exam Findings: Portable upright frontal views of the chest were obtained. Left central venous subclavian infusion port catheter tip terminates overlying the superior vena cava. Left apical pneumothorax is present with the left lung apex between the posterior left third and fourth rib shadows. There is no midline shift identified. Right lung field is clear. No left basilar infiltrate. Impression: Left apical pneumothorax with the lung apex between third and fourth posterior rib shadow level. Left-sided infusion port catheter ends overlying the expected site of the superior vena cava. Discussed with Dr. Medina on 07/02/2019 at 8:40 AM. Electronically signed by: Rickey Kemp MD (07/02/2019 9:22 AM) [facility]
[2019-07-02] MEDS: HYDROmorphone 2 MG/ML VIAL IV PRN ×2 (10:05→15:52)
[2019-07-02] MEDS ORDERED: LIDOCAINE WITH 8.4% SOD BICARB 3 ML DISP.SYRIN. ONE (14:52)
[2019-07-02] MEDS ORDERED: MIDAZOLAM HCL/PF 2 MG/2 ML VIAL. ONE (14:56)
[2019-07-02] MEDS ORDERED: fentaNYL PF VIAL 100 MCG/2 ML VIAL ONE (14:56)
--- NOTE | 2019-07-02 15:07 | RAD ---
Examination: PORTABLE CHEST 1V History: Pneumothorax follow-up Comparison/Correlation: 07/02/2019 chest x-ray exam performed at 8:17 AM Findings: Portable upright frontal view the chest was obtained. Left-sided infusion port with associated catheter again seen. Right lung field is clear. Moderate-sized left pneumothorax is more evident in the interval. Pneumothorax is identified at the posterior rib shadow of the left third and fourth rib. Pneumothorax is identified extending along the lateral thorax to the costophrenic sulcus in the interval. Slight mediastinal shift to the right is questioned in the interval. Impression: Interval increase in left pneumothorax. On 07/02/2019 at 1503, results were discussed with Dr. Medina. Electronically signed by: Rickey Kemp MD (07/02/2019 3:04 PM) [facility]
[2019-07-02] MEDS ORDERED: fentaNYL PF VIAL 100 MCG/2 ML VIAL IV ONE (15:30)
[2019-07-02] MEDS ORDERED: LIDOCAINE WITH 8.4% SOD BICARB 3 ML DISP.SYRIN. IJ ONE (15:30)
--- NOTE | 2019-07-02 15:32 | NUR ---
Patient to IR for chest tube placement. Left upper anterior chest tube placed, 8 Greek pigtail. Patient received Fentanyl 50mcg, vitals stable and patient tolerated well with no issues. Report called to DEB Lyon on . Patient transferred back to RM 410.
--- NOTE | 2019-07-02 15:34 | OP ---
DATE OF SURGERY: 07/02/2019 PREOPERATIVE DIAGNOSIS: Rectal carcinoma, needs access for chemotherapy. POSTOPERATIVE DIAGNOSIS: Rectal carcinoma, needs access for chemotherapy. PROCEDURE: Left subclavian PowerPort. SURGEON: Violet Lazo MD ANESTHESIA: General and local anesthetic. ESTIMATED BLOOD LOSS: 10 mL. INTRAVENOUS FLUIDS: 400 mL. INDICATIONS: The patient is a 54-year-old status post AP resection for locally advanced rectal carcinoma. She is brought for port placement to initiate chemotherapy. DESCRIPTION OF PROCEDURE: The patient brought to the operating suite, given a general LMA and the left and right infraclavicular areas were prepped and draped in usual sterile fashion. With the table in Trendelenburg, the left side was approached first. A 0.5% Marcaine was infiltrated a fingerbreadth below the clavicle at the junction of medial third with lateral third. A small incision made and a seeker needle used to find the left subclavian vein. Under fluoroscopic observation, the guidewire was passed into the superior vena cava and the needle was removed. Table returned to level. Pocket incision infiltrated with local anesthetic, incised and developed with blunt dissection. The catheter was laid on the patient's chest and with fluoroscopy, cut to an appropriate length. Catheter was then tunneled from the insertion site to the pocket site where it was attached to the reservoir and the reservoir was flushed and seated. With the table back in Trendelenburg, under fluoroscopic observation the dilator and sheath were passed over the wire. The wire was removed. The dilator was removed. The catheter was threaded through the sheath and the sheath was then removed. There was good flow into and out of the catheter at completion of placement. Skin incisions closed with 3-0 Vicryl in the subcutaneous tissue and 4-0 Monocryl with Steri-Strips for the skin incisions. A right angle infusion set was left in place in anticipation of initiation of chemotherapy soon. The port flushed and aspirated easily at completion of the procedure. Postop upright chest x-ray showed an apical pneumothorax on the left and as such the patient will be admitted to an observation bed. VIOLET LAZO MD DR: YUE/aj JOB#: [id number] / [id number]
--- NOTE | 2019-07-02 15:43 | PDOC ---
Provider Note Provider Note IR NOTE Small caliber left chest tube placed under ct wo complication. Chest tube placed to continuous suction at - 20 cm h20. Further management per surgery. CARIN ZALDIVAR MD Jul 02, 2019 15:42
--- NOTE | 2019-07-02 16:21 | PDOC ---
Provider Note Provider Note SURG pt seen post procedure comfortable, alert appreciate Dr Everett's help will check CXR in the AM VIOLET LAZO MD Jul 02, 2019 16:21
--- NOTE | 2019-07-02 16:27 | RAD ---
CT-guided left thoracostomy tube placement 07/02/2019 Clinical Indication: Left pneumothorax Sterility: The procedure was performed in its entirety using appropriate elements of sterile technique. Consent: The procedure was explained in its entirety to the patient or the patients designated printing supplies sales representative by a member of the treatment team, including a discussion of the risks, benefits and commonly accepted alternatives to the procedure, as well as the expected consequences of no therapy whatsoever. Discussion of the risks included, but was not limited to, those that are most frequent and those that are rare but possibly severe or life-threatening, as well as the possibility of unforeseen complications. Technique and Findings: Following informed consent, the patient was prepped and draped in the usual sterile fashion. 1% Lidocaine was used to achieve local anesthesia over the left anterior chest. CT imaging redemonstrates a large left pneumothorax. Under intermittent CT guidance a 5 Kyrgyz sheath needle was advanced into the pleural space. A guidewire was advanced into the pleural space over which, following dilatation, a 8 Kyrgyz pigtail drain was placed. Air was freely aspirated. Repeat CT demonstrates decrease pneumothorax. The catheter was secured in place. Sterile dressings were applied. No immediate complications were identified. Impression: CT-guided, small caliber left thoracostomy tube PQRS Compliance Statement: One or more of the following individualized dose reduction techniques were utilized for this examination: 1. Automated exposure control 2. Adjustment of the mA and/or kV according to patient size 3. Use of iterative reconstruction technique
[2019-07-02] MEDS: DOCUSATE SODIUM 100 MG CAPSULE. PO SCH (21:00)
[2019-07-02] MEDS ORDERED: ENOXAPARIN 40 MG/0.4 ML SYRINGE. SQ SCH (21:00)
[2019-07-03 03:00] VITALS: BP 110/66
[2019-07-03] MEDS: IV 1/2 NORMAL SALINE 1,000 ML IV SCH (05:23)
[2019-07-03 07:00] VITALS: BP 98/60
--- NOTE | 2019-07-03 07:46 | RAD ---
CHEST AP ONLY Clinical Indication: Pneumothorax follow-up Comparison: 07/02/2019 Portable Chest X-ray Exam performed at 11:59 AM. Findings: Portable upright frontal view of the chest was obtained. Left-sided pigtail catheter terminating at the lateral left upper lung field level is present. Left-sided infusion port catheter tip is overlying the superior vena cava. The cardiomediastinal silhouette is normal. Lungs are clear. Possibility of very minimal pneumothorax involving the left costophrenic angle is raised. Very minimal left apical pneumothorax may also be present. No mediastinal shift. No pleural effusion is appreciated. No acute bone abnormality. IMPRESSION: No significant pneumothorax. No significant change. Electronically signed by: Rickey Kemp MD (07/03/2019 7:43 AM) [facility]
[2019-07-03] MEDS: DOCUSATE SODIUM 100 MG CAPSULE. PO SCH (07:51)
--- NOTE | 2019-07-03 09:52 | PDOC ---
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 (probably 2/2 pneumothorax catheter) Vital Signs Vital Signs Date Time Temp Pulse Resp B/P (MAP) Pulse Ox O2 Delivery O2 Flow Rate FiO2 07/03/19 08:00 Room Air 07/03/19 07:51 16 07/03/19 07:00 97.9 62 98/60 (73) 97 97.9 07/02/19 16:28 2.0 I&O Intake and Output 07/03/19 07:00 Intake Total 1830 ml Output Total 10 ml Balance 1820 ml Intake Oral 880 ml IV Total 950 ml Output Estimated Blood Loss 10 ml # Voids 2 PATIENT HAS A PEREZ: No General: Alert, No acute distress Lungs: Normal air movement, Other (no air leak seen on pleura-vac) I have reviewed the following CXR this AM shows marked improvement in the pneumothorax Assessment/Plan POD 1 left subclavian power port, pneumothorax CT to water seal, f/u film this afternoon VIOLET LAZO MD Jul 03, 2019 09:52
--- NOTE | 2019-07-03 09:56 | NUR ---
Chest tube disconnected from suction. Water seal ordered by Dr. Medina. Patient and informed of rationale for water seal and follow-up xray this afternoon. Both state understanding.
--- NOTE | 2019-07-03 10:53 | NUR ---
SW following for discharge planning. Chart reviewed, discussed with RN. Pt is from home with . SW familiar with pt from prior admission. Pt had chest tube placed for chemo. RN advised no SW needs at this time. SW will continue to follow. Addendum: 07/03/19 at 1614 by ANN TRAN Pt is discharging home with self care today. No SW needs.
[2019-07-03 11:00] VITALS: BP 106/66
--- NOTE | 2019-07-03 15:52 | PDOC3 ---
Discharge Summary Visit Information Date of Admission: Jul 02, 2019 Date of Discharge: Jul 03, 2019 Admitting Diagnosis Comment: needs access for chemotherapy Final Diagnosis same, pneumothorax Brief Hospital Course Allergies Allergies Coded Allergies Type Severity Reaction Last Updated Verified No Known Drug Allergies 07/02/19 No Vital Signs Vital Signs Date Time Temp Pulse Resp B/P (MAP) Pulse Ox O2 Delivery O2 Flow Rate FiO2 07/03/19 11:00 98.3 59 14 106/66 (79) 98 Room Air 98.3 07/02/19 16:28 2.0 Brief Hospital Course Ms. Boyd is a 54 old female who presented for power port placement. She had a pneumothorax and was treated with a pneumothorax catheter. Lung expanded and stayed up with tube off suction Discharge Information Condition at Discharge: Stable Follow Up: As Needed Disposition/Orders: D/C to Home Scheduled Multivitamin (Multiple Vitamins) 1 Each Tablet, 1 TAB PO DAILY for SUPPLEMENT for 30 Days, #30 Ref 0 (Reported) Entered as Reported by: MAYURI CHAUDHARY on 06/28/191647 Last Action: New Order on 06/28/191647 by VIOLET BARTHOLOMEW MD Jul 03, 2019 15:52
--- NOTE | 2019-07-03 15:53 | DISCH ---
DISCHARGE INSTRUCTIONS Condition on Discharge Condition on Discharge: Stable Activity After Discharge Activity Instructions for Disc: Activity as tolerated Lifting Instructions after Dis: No heavy lifting Exercise Instruction after Dis: Progress as tolerated Driving Instructions after Dis: Do not drive Weight Bearing Status after Di: As tolerated Diet after Discharge Diet after Discharge: Regular Swallowing Supervision: None needed Wound Incision Care Wound/Incision Care: Ice to area for comfort, May get incision wet Checks after Discharge Checks after discharge: Check blood press - daily Contacting the DR. after DC Call your doctor for: Concerns you may have VIOLET LAZO MD Jul 03, 2019 15:52
--- NOTE | 2019-07-03 16:20 | NUR ---
Patient taken out by wheel chair to private vehicle driven by . All personal belongings with patient.
--- NOTE | 2019-07-03 17:17 | RAD ---
CHEST AP ONLY Clinical Indication: Pneumothorax follow-up Comparison: 07/03/2019 portable chest x-ray exam performed at 7:11 AM. Findings: Portable upright frontal view chest was obtained. Left-sided subclavian infusion port catheter tip is overlying superior vena cava. Left-sided pigtail catheter chest tube remains at the upper lung field level. No definite or significant pneumothorax is identified. No pleural effusion. No infiltrates. No acute bone abnormality. IMPRESSION: No definite or significant pneumothorax. Electronically signed by: Rickey Kemp MD (07/03/2019 5:14 PM) [facility]
[2019-07-03] MEDS ORDERED: ENOXAPARIN 40 MG/0.4 ML SYRINGE. SQ SCH (21:00)
== END 2019-07-03 16:25 | disposition home or self-care (01) ==
LOC: SURG 05:55 → 4 NORTH 10:01
PROVIDERS: ADMIT Surgery; ATTEND Surgery
DX: C20 Malignant neoplasm of rectum (principal); Z98.891 History of uterine scar from previous surgery; Z90.49 Acquired absence of other specified parts of digestive tract; Z98.890 Other specified postprocedural states
CPT/HCPCS: 32557; 36556; 71045; 96372; 96374; 96375; 96376; A7015; C1729; C1788; C1892; C1894; G0378; G0379; J0690; J1100; J1170; J1644; J1650; J2001; J2405; J2704; J3010; J3490; J7040